=== PATIENT | female | born 1955 | race Caucasian/White ===

== ENCOUNTER 2020-12-30 17:37 | Emergency (ER) | payer OTHER ==
[~2020-12-30] VITALS: Ht 170 cm; Wt 105.0 kg
[2020-12-30] MEDS ORDERED: HYDROcodone/APAP 5 MG/325 MG (LORTAB) TAB PO ONE (18:00)
--- NOTE | 2020-12-30 18:08 | ED Fall/Injury ---
General Chief Complaint: Trauma-Non Activation Stated Complaint: WC FALL; DIZZINESS Nursing Triage Note: PT TRIPPED ANF FELL ONTO CONCRETE AND HIT HER LEFT ELBOW, BOTH KNEES, NOSE, FOREHEAD, AND BROKE HER GLASSES.TOOK TYLENOL AT 1500. Source: patient Exam Limitations: no limitations History of Present Illness Date Seen by Provider: Dec 30, 2020 Time Seen by Provider: 17:55 Initial Comments Here with report of fall today landing on her face and left arm. Complains of pain to her nose, forehead, neck, left elbow and left forearm. Tetanus is up-to-date. She apparently tripped and fell to the ground. She was trying to catch a client who had jumped out of a car. 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 Denies nausea, vomiting or weakness. Does complain of dizziness. Is not sure that she lost consciousness at the fall but was dazed. She did break her glasses. Location Injury Occurred: [employer] Occurred: just prior to arrival (3 to 4 hours ago) Severity: moderate Injuries/Pain Location: head, face, neck, upper extremity Context: tripped Loss of Consciousness: no loss of consciousness Associated Symptoms (Fall): No Abdominal Pain, No Chest Pain, No Confusion; Diz ziness, Headache; No Nausea/Vomiting; Neck Pain; No Shortness of Air, No Trouble Walking, No Vision Changes Allergies and Home Medications Allergies Coded Allergies: morphine (Verified Allergy, Unknown, 12/30/20) Patient Home Medication List Home Medication List Reviewed: Yes Review of Systems Review of Systems Constitutional: No chills, No fever Eyes: Denies Blurred Vision, Denies Pain Ears, Nose, Mouth, Throat: no symptoms reported, nose pain; denies epistaxis Respiratory: no symptoms reported Cardiovascular: no symptoms reported Musculoskeletal: see HPI, joint pain, muscle pain Skin: change in color, lesions (You scattered abrasions to the knees, left upper extremity and face) All Other Systems Reviewed Negative Unless Noted: Yes Past Pyvwvhv-Rvyuyf-Apgolg Hx Patient Social History Tobacco Use?: No Use of E-Cig and/or Vaping dev: No Substance use?: No Alcohol Use?: No Pt feels they are or have been: No Immunizations Up To Date First/Initial COVID19 Vaccinat: JULY 2020 Second COVID19 Vaccination Mynor: AUGUST 2020 COVID19 Vaccine [employer]: DEL Past Medical History Surgeries: Yes Coronary Stent Respiratory: Yes COPD Cardiac: Yes Coronary Artery Disease, Hypertension Neurological: No Family Medical History Reviewed and Corrections made No Pertinent Family Hx Physical Exam Vital Signs Vital Signs - First Documented 12/30/20 17:42 Temp 36.1 Pulse 78 Resp 16 B/P (MAP) 128/64 (85) Pulse Ox 99 O2 Delivery Room Air Capillary Refill : Height, Weight, BMI Height: '" Weight: lbs. oz. kg; BMI Method: General Appearance: WD/WN, no apparent distress HEENT: PERRL/EOMI, pharynx normal Neck: supple, tender lateral; No tender midline Cardiovascular: regular rate, rhythm, no murmur Respiratory: lungs clear, normal breath sounds Back: normal inspection, no CVA tenderness, no vertebral tenderness Extremities: pelvis stable, other (Tender to the left mid forearm and left elbow with full range of motion. Nontender at the left shoulder or wrist.) Neurologic/Psychiatric: alert, oriented x 3 Skin: warm/dry, other (Abrasions to bilateral knees left arm and midline face and bridge of nose.) Progress/Results/Core Measures Results/Orders My Orders Orders - CYNTHIA BOSTON MD Ct Head/Face/Cervical Wo (12/30/20 17:52) Elbow 3 View Left (12/30/20 17:52) Forearm 2 View Left (12/30/20 17:52) Hydrocodone/Apap 5/325 Tablet (Lortab 5 (12/30/20 18:00) Medications Given in ED Current Medications Medications Dose Ordered Sig/Edwin Route Start Time Stop Time Status Last Admin Dose Admin Acetaminophen/ Hydrocodone Bitart 1 ea ONCE ONCE PO 12/30/20 18:00 12/30/20 18:01 DC 12/30/20 18:12 1 EA Vital Signs/I&O 12/30/20 17:42 Temp 36.1 Pulse 78 Resp 16 B/P (MAP) 128/64 (85) Pulse Ox 99 O2 Delivery Room Air Progress Progress Note : Progress Note Seen and evaluated. CT head, face and neck ordered. X-ray left elbow and left forearm. Hydrocodone 5/325 1 tab p.o. Monitor patient. 1904: Fracture noted to the radial neck. We will place sugar tong splint and sling. This was done by nursing. DNV intact afterwards. Discharged home with return precautions. Patient verbalized understanding instructions and agreement with plan. Diagnostic Imaging Diagonstic Imaging: CT Plain Films/CT/US/NM/MRI: facial bones, c-spine, head Comments [facility] [place] [place] NAME: ADRIANNE CALDWELL [facility] REC#: [id number] PT STATUS: REG ER : 1955 PHYSICIAN: CYNTHIA BOSTON MD ADMIT DATE: 12/30/20/ER FS Signed Date of Exam:12/30/20 CT HEAD/FACE/CERVICAL WO PROCEDURE: CT head, face, and cervical spine without contrast. TECHNIQUE: Multiple contiguous axial images were obtained through the head, neck, and facial bones without the use of intravenous contrast. Sagittal and coronal reformations through the cervical spine and facial bones were also performed. Auto Exposure Controls were utilized during the CT exam to meet ALARA standards for radiation dose reduction. INDICATION: Fall with head, neck and face injuries. COMPARISON: No prior studies are available for comparison. CT HEAD: The ventricles and sulci are within normal limits. No sulcal effacement is identified. There is no midline shift. No acute intra-axial or extra-axial hemorrhage is detected. Cisterns are patent. Visualized paranasal sinuses are clear. IMPRESSION: 1. No acute intracranial process is detected. CT CERVICAL SPINE: Alignment of the cervical spine is normal. No fracture or subluxation is identified. Prevertebral tissues are within normal limits. Odontoid is intact. IMPRESSION: 1. No acute bony abnormality is detected. CT FACE: The mandible appears intact. Zygomatic arches are intact. Maxillary sinus garcia, nasal bones and orbital garcia appear to be intact. No fractures are seen. The visualized paranasal sinuses are clear. IMPRESSION: 1. No facial bone fracture is detected. Dictated by: Dictated on workstation # [id number] Dict: 12/30/20 183 Trans: 12/30/201853 [facility] [id number] Interpreted by: MILADY HIGGINS MD Electronically signed by: MILADY HIGGINS MD 12/30/201853 Diagonstic Imaging: Xray Plain Films/CT/US/NM/MRI: forearm Comments [facility] [place] [place] NAME: ADRIANNE CALDWELL [facility] REC#: [id number] PT STATUS: REG ER : 1955 PHYSICIAN: CYNTHIA BOSTON MD ADMIT DATE: 12/30/20/ER FS Signed Date of Exam:12/30/20 FOREARM 2 VIEW LEFT INDICATION: Fall with injury to the left arm. TIME OF EXAM: 06:24 p.m. TECHNIQUE: Two views of the left forearm were obtained. FINDINGS: Alignment at the elbow and wrist appears normal. The radius does show probable fracture of the neck. There is prominent anterior fat pad, consistent with joint effusion. The remainder of the radius and ulna are intact. IMPRESSION: Findings consistent with radius neck fracture. Dictated by: Dictated on workstation # [id number] Dict: 12/30/201834 Trans: 12/30/201853 AS6 [id number] Interpreted by: MILADY HIGGINS MD Electronically signed by: MILADY HIGGINS MD 12/30/201853 Diagonstic Imaging: Xray Comments [facility] [place] [place] NAME: ADRIANNE CALDWELL [facility] REC#: [id number] PT STATUS: REG ER : 1955 PHYSICIAN: CYNTHIA BOSTON MD ADMIT DATE: 12/30/20/ER FS Draft Date of Exam:12/30/20 ELBOW 3 VIEW LEFT INDICATION: Fall with left forearm and elbow pain TECHNIQUE: 3 views of the left elbow CORRELATION STUDY: None FINDINGS: There is normal alignment of the osseous structures of the elbow. No acute fracture. Likely minimal osteophyte formation about the medial epicondyle. No abnormal joint effusion. IMPRESSION: 1. Negative for acute bony abnormality of the elbow. Dictated on workstation # [id number] Dict: 12/30/201831 Trans: 12/30/20 183 BRADEN [id number] Interpreted by: VIDA DING DO Electronically signed by: Departure Impression Primary Impression: Fracture of radial neck, left, closed Qualified Codes: S52.135A - Nondisplaced fracture of neck of left radius, initial encounter for closed fracture Additional Impressions: Head injury Qualified Codes: S09.90XA - Unspecified injury of head, initial encounter Facial contusion Qualified Codes: S00.83XA - Contusion of other part of head, initial encounter Multiple abrasions Disposition: HOME, SELF-CARE Condition: Improved Departure-Patient Inst. Decision time for Depature: 19:09 Referrals: OTTO GAUTHIER MD (PCP/Family) Primary Care Physician Patient Instructions: Minor Head Injury (DC), Skin Abrasions (DC), Radius Fracture (DC), Contusion (DC) Add. Discharge Instructions: All discharge instructions reviewed with patient and/or family. Voiced understanding. You have a nondisplaced fracture of the radius bone near the left elbow. You will need to follow-up with the orthopedist listed or of your choosing. Call his office tomorrow for appointment. Follow-up with your Workmen's Comp. as well. Take medications as directed. You may take Tylenol/acetaminophen 1000 mg every 8 hours as needed for pain if you are not taking the prescribed pain medicine as they both have acetaminophen in them. You may use ice packs to area of concern 20 minutes/h as needed. Use antibiotic ointment and Band-Aid over abrasions changing once or twice daily as needed. Return for worse pain, swelling, weakness, numbness or other concerns as needed. Scripts Hydrocodone Bit/Acetaminophen (HYDROcodone/APAP 5 MG/325 MG TAB) 1 Tab Tab 1 TAB PO Q6H for Pain, #10 TAB 0 Refills Prov: CYNTHIA BOSTON MD 12/30/20 CYNTHIA BOSTON MD Dec 30, 2020 18:08
--- NOTE | 2020-12-30 18:34 | Diagnostic Imaging Report ---
INDICATION: Fall with left forearm and elbow pain TECHNIQUE: 3 views of the left elbow CORRELATION STUDY: None FINDINGS: There is normal alignment of the osseous structures of the elbow. No acute fracture. Likely minimal osteophyte formation about the medial epicondyle. No abnormal joint effusion. IMPRESSION: 1. Negative for acute bony abnormality of the elbow. Dictated by: Dictated on workstation # [id number]
--- NOTE | 2020-12-30 18:38 | Diagnostic Imaging Report ---
PROCEDURE: CT head, face, and cervical spine without contrast. TECHNIQUE: Multiple contiguous axial images were obtained through the head, neck, and facial bones without the use of intravenous contrast. Sagittal and coronal reformations through the cervical spine and facial bones were also performed. Auto Exposure Controls were utilized during the CT exam to meet ALARA standards for radiation dose reduction. INDICATION: Fall with head, neck and face injuries. COMPARISON: No prior studies are available for comparison. CT HEAD: The ventricles and sulci are within normal limits. No sulcal effacement is identified. There is no midline shift. No acute intra-axial or extra-axial hemorrhage is detected. Cisterns are patent. Visualized paranasal sinuses are clear. IMPRESSION: 1. No acute intracranial process is detected. CT CERVICAL SPINE: Alignment of the cervical spine is normal. No fracture or subluxation is identified. Prevertebral tissues are within normal limits. Odontoid is intact. IMPRESSION: 1. No acute bony abnormality is detected. CT FACE: The mandible appears intact. Zygomatic arches are intact. Maxillary sinus garcia, nasal bones and orbital garcia appear to be intact. No fractures are seen. The visualized paranasal sinuses are clear. IMPRESSION: 1. No facial bone fracture is detected. Dictated by: Dictated on workstation # [id number]
--- NOTE | 2020-12-30 18:38 | Diagnostic Imaging Report ---
INDICATION: Fall with injury to the left arm. TIME OF EXAM: 06:24 p.m. TECHNIQUE: Two views of the left forearm were obtained. FINDINGS: Alignment at the elbow and wrist appears normal. The radius does show probable fracture of the neck. There is prominent anterior fat pad, consistent with joint effusion. The remainder of the radius and ulna are intact. IMPRESSION: Findings consistent with radius neck fracture. Dictated by: Dictated on workstation # [id number]
[2020-12-30] MEDS ORDERED: ACHD5005 PO (19:15)
[2020-12-30 19:29] VITALS: BP 128/64
--- OUTSIDE RECORDS SUMMARY | 2021-01-02 18:27 | XMS REPORT | Clinical Summary ---
Author Author [facility] Organization [facility] Address Unknown Phone Unavailable Care Team Providers Care Tunnel Heading Inspector Name Role Phone Henrry See MD PCP Bradley Barraza MD 3 Source Comments Some departments are not documenting in the electronic medical record. If you d o not see the information that you expected, contact Release of Information in [facility] [employer] Information Management department at [phone] for further assistan ce in locating additional records.[facility] Allergies Comments Active Allergy Reactions Severity Noted Date Morphine NAUSEA AND 04/16/2011 VOMITING Medications End Date Status Medication Sig Dispensed Refills Start Date Active clopidogrel (PLAVIX) 75 Take 75 mg by 0 mg mouth daily. Active isosorbide mononitrate SR Take 1 Tab by 90 Tab 3 (IMDUR) 30 mg tablet mouth daily. 1 Active albuterol (VENTOLIN HFA, Inhale 2 0 PROAIR HFA) 90 puffs by mcg/Actuation inhaler mouth into the lungs every 4 hours as needed. 2 puff q4hrs as needed for shortness of breath or cough Active atorvastatin (LIPITOR) 80 Take 80 mg by 0 mg tablet mouth daily. Active DULoxetine DR (CYMBALTA) Take 60 mg by 0 60 mg capsule mouth daily. Active cetirizine (ZYRTEC) 10 mg Take 10 mg by 0 tablet mouth daily. Active cyclobenzaprine Take 10 mg by 0 (FLEXERIL) 10 mg tablet mouth three times daily as needed. Active bumetanide (BUMEX) 2 mg Take 2 mg by 0 tablet mouth twice daily. Active meloxicam (MOBIC) 15 mg Take 15 mg by 0 tablet mouth daily. Active sacubitriL-valsartan Take 1 tablet 0 (ENTRESTO) 24-26 mg by mouth tablet twice daily. Active pantoprazole DR Take 40 mg by 0 (PROTONIX) 40 mg tablet mouth daily. Active semaglutide (OZEMPIC) Inject 0.5 mg 0 0.25 mg or 0.5 mg(2 under the mg/1.5 mL) injection PEN skin every 7 days. Active apixaban (ELIQUIS) 5 mg Take 5 mg by 0 tablet mouth twice daily. Active pregabalin (LYRICA) 150 Take 150 mg 0 mg capsule by mouth three times daily. Active potassium chloride SR Take 20 mEq 0 (K-DUR) 20 mEq tablet by mouth twice daily. Take with a meal and a full glass of water. Active fluticasone/umeclidin/joanna Inhale 1 puff 0 anter (TRELEGY ELLIPTA by mouth into IN) the lungs daily. Active diclofenac sodium Apply 0 (SOLARAZE) 3 % gel topically to affected area twice daily. Active insulin detemir U-100(+) Inject 55 0 (LEVEMIR) 100 unit/mL Units under vial the skin daily. Active nitroglycerin (NITROSTAT) Place 0.4 mg 0 0.4 mg tablet under tongue every 5 minutes as needed for Chest Pain. Max of 3 tablets, call 911. Active rOPINIRole (REQUIP) 1 mg Take 1 mg by 0 tablet mouth three times daily. Active fluticasone propionate Apply 2 0 (FLONASE) 50 sprays to mcg/actuation nasal each nostril spray, suspension as directed twice daily. Shake bottle gently before using. Active sucralfate (CARAFATE) 1 Take 1 g by 0 gram tablet mouth every 6 hours. Take on an empty stomach. Active amiodarone (CORDARONE) Take 200 mg 0 200 mg tablet by mouth daily. Take with food. Active cholecalciferol (VITAMIN Take 1,000 0 D-3) 1,000 units tablet Units by mouth daily. Active MULTIVITAMIN PO Take 1 tablet 0 by mouth daily. Active calcium carb/magnesium Take 2 0 carb (CALCIUM & MAGNESIUM tablets by CARBONATES PO) mouth daily. Active ondansetron (ZOFRAN ODT) Dissolve 4 mg 0 4 mg rapid dissolve by mouth tablet every 8 hours as needed for Nausea or Vomiting. Place on tongue to dissolve. Active fish oil /omega-3 fatty Take 1 0 acids (SEA-OMEGA) capsule by 340/1000 mg capsule mouth twice daily. Active amoxicillin-potassium Take one 2 tablet 0 10/29 clavulanate (AUGMENTIN) tablet by 1 875/125 mg tablet mouth every 12 hours. Start taking 11/22. Take with food. Active doxycycline hyclate Take one 2 tablet 0 (VIBRAMYCIN) 100 mg tablet by 1 tablet mouth every 12 hours. Active vitamins, multi Take 1 tablet 0 w/minerals 9 mg iron-400 by mouth mcg tab daily. Active Problems Problem Noted Date Acute respiratory failure with hypoxia and hypercapni a 11/17/2020 Metabolic acidosis 11/17/2020 A-fib 11/17/2020 Wide-complex tachycardia 05/11/2011 Overview: Formatting of this note might be differ ent from the original. 03/2011- Beat run during hospitaliza tion-EP consulted. Continue BB therapy COPD (chronic obstructive pulmonary disease) 011 HTN (hypertension) 04/17/2011 DM (diabetes mellitus) 04/17/2011 CAD (coronary artery disease) 04/17/2011 Overview: Formatting of this note might be differ ent from the original. 1. 04/19/11-Cath: Mild, nonobstructiv e coronary atherosclerosis with a patent stent in the proximal RCA. 30 percent to 40 percent in-stent reste notic lesion in the proximal aspect of the RCA stent. Normal left ve ntricular systolic function, EF 60% with an EDP o f 12 to 14 mmHg. During engagement of the RCA, notable spasm in the ostium-Imdur initiated. Hx of percutaneous left heart catheterization 2010 HLD (hyperlipidemia) 04/17/2011 CHF (congestive heart failure) 04/17/2011 Depression 04/17/2011 Encounters Care Team Description Date Type Specialty Gayla Chavez APRN-ALYSSA 11/17/2020 Hospital Radiology Encounter Bigg Augustin MD Hall, Chase S, MD Beasley, Jeffrey L, DO Acute respiratory failure with hypoxia a nd hypercapnia (HCC) 11/17/2020 Hospital - Encounter 11/21/2020 11/17/2020 Hospital Radiology Encounter 11/17/2020 Hospital Radiology Encounter 11/17/2020 Hospital Radiology Encounter 11/17/2020 Hospital Radiology Encounter 11/17/2020 Hospital Radiology Encounter 11/17/2020 Travel from Last 3 Months Surgical History Surgery Date Site/Laterality Comments HYSTERECTOMY HX HEART CATHETERIZATION Medical History Medical History Date Comments Myocardial infarction (HCC) Hypertension Gastrointestinal disorder HLD (hyperlipidemia) CHF (congestive heart failure) (HCC) COPD (chronic obstructive pulmonary disease) (HCC) DM (diabetes mellitus) (HCC) Restless legs syndrome (RLS) Family History Medical History Relation Name Comments Heart Attack Father Hypertension Mother Relation Name Status Comments Father Mother Social History Date Tobacco Use Types Packs/Day Years Used Quit: 04/16/2000 Former Smoker Cigarettes 1 30 Smokeless Tobacco: Former Quit: 04/16/1990 User Drinks/Week oz/Week Comments Alcohol Use No Sex Assigned at Date Recorded Not on file Last Filed Vital Signs Reading Time Taken Comments Vital Sign 102/71 11/21/2020 11:23 AM CDT Blood Pressure 86 11/21/2020 11:23 AM CDT Pulse 36.2 C (97.2 F) 11/21/2020 11:23 AM CDT Temperature - - Respiratory Rate 92% 11/21/2020 11:23 AM CDT Oxygen Saturation - - Inhaled Oxygen Concentration 99.6 kg (219 lb 9.3 oz) 11/21/2020 3:32 AM CDT Weight 170.2 cm (5' 7.01") 11/17/2020 3:28 PM CDT Height 34.38 11/17/2020 3:28 PM CDT Body Mass Index Plan of Treatment Health Maintenance Due Date Last Done Comments MEDICARE ANNUAL WELLNESS 1955 VISIT HIV SCREENING 12/06/1971 DILATED EYE EXAM 1974 DTAP/TDAP VACCINES (1 - 1974 Tdap) FOOT EXAM 1974 HEPATITIS C SCREENING 1974 PHYSICAL (COMPREHENSIVE) 1974 EXAM PNEUMONIA VACCINE (DM) 1974 CERVICAL CANCER SCREENING 1977 BREAST CANCER SCREENING 1996 COLORECTAL CANCER 2006 SCREENING SHINGLES RECOMBINANT 01/11/2018 11/16/2017 VACCINE (2 of 2) INFLUENZA VACCINE 02/27/2021 HBA1C 05/19/2021 11/17/2020, 04/18/2011 Goals Goal Patient Associated Recent Progress Patient-Stat Aut hor Goal Type Problems ed? 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 Procedure Name Priority Date/Time Associated Diag nosis POC GLUCOSE 11/21/2020 11:15 AM CDT POC GLUCOSE 11/21/2020 7:34 AM CDT HC PHOSPHOROUS, SERUM Routine 11/21/2020 (PO4CT) 7:27 AM CDT HC MAGNESIUM (MGCT) Routine 11/21/2020 7:27 AM CDT HC COMPREHENSIVE Routine 11/21/2020 METABOLIC PANEL 7:27 AM CDT HC CBC W/ AUTOMATED DIFF Routine 11/21/2020 7:27 AM CDT POC GLUCOSE 11/20/2020 9:25 PM CDT POC GLUCOSE 11/20/2020 4:54 PM CDT POC GLUCOSE 11/20/2020 1:52 PM CDT POC GLUCOSE 11/20/2020 11:47 AM CDT POC GLUCOSE 11/20/2020 8:24 AM CDT POC GLUCOSE 11/20/2020 6:24 AM CDT POC GLUCOSE 11/20/2020 5:26 AM CDT POC GLUCOSE 11/20/2020 4:24 AM CDT POC GLUCOSE 11/20/2020 3:22 AM CDT HC PHOSPHOROUS, SERUM Routine 11/20/2020 (PO4CT) 2:27 AM CDT HC MAGNESIUM (MGCT) Routine 11/20/2020 2:27 AM CDT HC COMPREHENSIVE Routine 11/20/2020 METABOLIC PANEL 2:27 AM CDT HC CBC W/ AUTOMATED DIFF Routine 11/20/2020 2:27 AM CDT POC GLUCOSE 11/20/2020 2:19 AM CDT POC GLUCOSE 11/20/2020 1:04 AM CDT POC GLUCOSE 11/20/2020 12:05 AM CDT POC GLUCOSE 11/19/2020 11:01 PM CDT TROPONIN-I Routine 11/19/2020 11:00 PM CDT POC GLUCOSE 11/19/2020 10:06 PM CDT POC GLUCOSE 11/19/2020 9:12 PM CDT POC GLUCOSE 11/19/2020 8:04 PM CDT POC GLUCOSE 11/19/2020 6:14 PM CDT HC TROPONIN-I Specimen 11/19/2020 in Lab 5:13 PM CDT POC GLUCOSE 11/19/2020 4:22 PM CDT CONSULT IV THERAPY TEAM Routine 11/19/2020 2:13 PM CDT POC GLUCOSE 11/19/2020 1:55 PM CDT POC GLUCOSE 11/19/2020 11:40 AM CDT POC GLUCOSE 11/19/2020 8:50 AM CDT POC GLUCOSE 11/19/2020 6:42 AM CDT POC GLUCOSE 11/19/2020 4:32 AM CDT HC PHOSPHOROUS, SERUM Routine 11/19/2020 (PO4CT) 4:00 AM CDT HC MAGNESIUM (MGCT) Routine 11/19/2020 4:00 AM CDT HC COMPREHENSIVE Routine 11/19/2020 METABOLIC PANEL 4:00 AM CDT HC CBC W/ AUTOMATED DIFF Routine 11/19/2020 4:00 AM CDT POC GLUCOSE 11/19/2020 12:48 AM CDT POC GLUCOSE 11/19/2020 12:06 AM CDT POC GLUCOSE 11/18/2020 10:43 PM CDT POC GLUCOSE 11/18/2020 10:06 PM CDT POC GLUCOSE 11/18/2020 9:10 PM CDT POC GLUCOSE 11/18/2020 7:55 PM CDT POC GLUCOSE 11/18/2020 6:50 PM CDT POC GLUCOSE 11/18/2020 5:35 PM CDT POC GLUCOSE 11/18/2020 5:14 PM CDT POC GLUCOSE 11/18/2020 4:56 PM CDT POC GLUCOSE 11/18/2020 4:07 PM CDT POC GLUCOSE 11/18/2020 2:54 PM CDT POC GLUCOSE 11/18/2020 1:54 PM CDT POC GLUCOSE 11/18/2020 12:43 PM CDT HC MAGNESIUM Routine 11/18/2020 12:15 PM CDT HC BASIC METABOLIC PANEL Routine 11/18/2020 12:15 PM CDT POC GLUCOSE 11/18/2020 11:42 AM CDT POC GLUCOSE 11/18/2020 11:19 AM CDT POC GLUCOSE 11/18/2020 10:52 AM CDT POC GLUCOSE 11/18/2020 9:52 AM CDT POC GLUCOSE 11/18/2020 8:28 AM CDT POC GLUCOSE 11/18/2020 7:44 AM CDT POC GLUCOSE 11/18/2020 6:40 AM CDT POC GLUCOSE 11/18/2020 6:10 AM CDT POC GLUCOSE 11/18/2020 4:59 AM CDT POC GLUCOSE 11/18/2020 4:14 AM CDT HC TROPONIN-I Routine 11/18/2020 2:58 AM CDT HC PHOSPHOROUS, SERUM Routine 11/18/2020 (PO4CT) 2:58 AM CDT HC MAGNESIUM (MGCT) Routine 11/18/2020 2:58 AM CDT HC COMPREHENSIVE Routine 11/18/2020 METABOLIC PANEL 2:58 AM CDT HC CBC W/ AUTOMATED DIFF Routine 11/18/2020 2:58 AM CDT POC GLUCOSE 11/18/2020 2:57 AM CDT POC GLUCOSE 11/18/2020 2:55 AM CDT POC GLUCOSE 11/18/2020 1:43 AM CDT POC GLUCOSE 11/18/2020 12:44 AM CDT POC GLUCOSE 11/17/2020 11:51 PM CDT POC GLUCOSE 11/17/2020 10:40 PM CDT TROPONIN-I 11/17/2020 10:00 PM CDT CBC Routine 11/17/2020 10:00 PM CDT POC GLUCOSE 11/17/2020 9:54 PM CDT POC GLUCOSE 11/17/2020 9:07 PM CDT POC GLUCOSE 11/17/2020 7:54 PM CDT HC TROPONIN-I Routine 11/17/2020 7:53 PM CDT POC GLUCOSE 11/17/2020 7:18 PM CDT POC GLUCOSE 11/17/2020 6:35 PM CDT POC GLUCOSE 11/17/2020 5:22 PM CDT HC NON-SCIENTIFIC GLASS BLOWER/THIN PREP Routine 11/17/2020 3:46 PM CDT HC FUNGITELL (FUNGT) Routine 11/17/2020 3:37 PM CDT HC CBC,AUTOMATED 91 Routine 11/17/2020 3:37 PM CDT TROPONIN-I Routine 11/17/2020 3:37 PM CDT HC RVP PANEL NASAL SINGLE Routine 11/17/2020 RVPN 3:32 PM CDT HC PNEU JIROVECI QT Routine 11/17/2020 PCR(PJPQT) 3:32 PM CDT HC ASPERGILLUS Routine 11/17/2020 GALACTOMANNAN AG 3:32 PM CDT HC CELL COUNT Routine 11/17/2020 W/DIFF-FLUIDS 3:32 PM CDT HC HSV PCR Routine 11/17/2020 3:32 PM CDT HC CMV DNA QN BY PCR Routine 11/17/2020 3:32 PM CDT GRAM STAIN 11/17/2020 3:32 PM CDT CULTURE-FUNGAL,OTHER Routine 11/17/2020 3:32 PM CDT CULTURE-TB (AFB) Routine 11/17/2020 3:32 PM CDT CULTURE-RESP,LOWER Routine 11/17/2020 W/SENSITIVITY 3:32 PM CDT 2D + DOPPLER ECHO W/ ISIDRO 11/17/2020 CONTRAST 3:28 PM CDT POC GLUCOSE 11/17/2020 2:23 PM CDT HC BLOOD Routine 11/17/2020 GASES;(CALCULATED 02) 2:23 PM CDT HC CALCIUM IONIZED 11/17/2020 1:57 PM CDT CULTURE-BLOOD Routine 11/17/2020 W/SENSITIVITY 1:30 PM CDT CONSULT IV THERAPY TEAM Routine 11/17/2020 12:44 PM CDT LEGIONELLA ANTIGEN 11/17/2020 URINE,RAN 12:40 PM CDT HC PHENCYCLIDINES; QUAL Routine 11/17/2020 12:40 PM CDT HC OPIATES; QUAL Routine 11/17/2020 12:40 PM CDT HC COCAINE; QUAL Routine 11/17/2020 12:40 PM CDT HC CANNABINOIDS; QUAL Routine 11/17/2020 12:40 PM CDT HC BENZODIAZEPINES, QUAL Routine 11/17/2020 12:40 PM CDT HC BARBITURATES Routine 11/17/2020 12:40 PM CDT HC AMPHETAMINES QUAL, Routine 11/17/2020 URINE 12:40 PM CDT STREPTOCOCCUS PNEUMO AG, Routine 11/17/2020 URINE 12:40 PM CDT UA REFLEX LABEL Routine 11/17/2020 12:40 PM CDT URINALYSIS MICROSCOPIC Routine 11/17/2020 REFLEX TO CULTURE 12:40 PM CDT HC URINALYSIS UAR Routine 11/17/2020 12:40 PM CDT HC MRSA PNEUMONIA SCREEN Routine 11/17/2020 12:40 PM CDT COVID-19 (SARS-COV-2) PCR Routine 11/17/2020 12:39 PM CDT HC HEMOGLOBIN A1C Add on 11/17/2020 11:59 AM CDT HC AMMONIA Routine 11/17/2020 11:59 AM CDT HC PROLCALCITONIN (PROCA) STAT 11/17/2020 11:59 AM CDT HC TSH SCREEN Routine 11/17/2020 11:59 AM CDT HC TROPONIN-I STAT 11/17/2020 11:59 AM CDT HC B-TYPE NATRIURETIC Routine 11/17/2020 PEPTIDE 11:59 AM CDT HC PHOSPHOROUS, SERUM Routine 11/17/2020 11:59 AM CDT HC MAGNESIUM Routine 11/17/2020 11:59 AM CDT HC CALCIUM IONIZED Routine 11/17/2020 11:59 AM CDT HC LACTIC ACID - BG Routine 11/17/2020 SYRINGE 11:59 AM CDT HC BLOOD STAT 11/17/2020 GASES;(CALCULATED 02) 11:59 AM CDT HC COMPREHENSIVE Routine 11/17/2020 METABOLIC PANEL 11:59 AM CDT HC PT(INR) Routine 11/17/2020 11:59 AM CDT HC CBC W/ AUTOMATED DIFF Routine 11/17/2020 11:59 AM CDT CULTURE-BLOOD Routine 11/17/2020 W/SENSITIVITY 11:59 AM CDT POC GLUCOSE 11/17/2020 11:56 AM CDT CHEST SINGLE VIEW STAT 11/17/2020 11:50 AM CDT ECG 12-LEAD STAT 11/17/2020 11:30 AM CDT GENERAL RAD CHEST Routine 11/17/2020 EXTERNAL IMAGING 12:[address] HEAD EXTERNAL IMAGING Routine 11/17/2020 12:[address] C-SPINE EXTERNAL Routine 11/17/2020 IMAGING 12:10 AM CDT GENERAL RAD CHEST Routine 11/17/2020 EXTERNAL IMAGING 12:05 AM CDT GENERAL RAD CHEST Routine 11/17/2020 EXTERNAL IMAGING 12:00 AM CDT ECG-SCAN 11/17/2020 12:00 AM CDT ECG-SCAN 11/17/2020 12:00 AM CDT TELEMETRY STRIPS-SCAN 11/17/2020 12:00 AM CDT TELEMETRY STRIPS-SCAN 11/17/2020 12:00 AM CDT TELEMETRY STRIPS-SCAN 11/17/2020 12:00 AM CDT from Last 3 Months Results * POC GLUCOSE (11/21/2020 11:15 AM CDT) Only the most recent of 63 results within the time period is included. Glucose, POC 186 (H) 70 - 100 MG/DL [facility] Specimen Performing Organization Address City/State/ZIP Code P morris Number [facility] [address] [id number] * PHOSPHORUS CELLULAR THERAPEUTICS (11/21/2020 7:27 AM CDT) Only the most recent of 4 results within the time period is included. Phosphorus 3.5 2.0 - 4.5 MG/DL [facility] Specimen Blood Performing Organization Address City/[facility]/ZIP [facility] P morris Number [facility] [address] [place] [address] * MAGNESIUM CELLULAR THERAPEUTICS (11/21/2020 7:27 AM CDT) Only the most recent of 4 results within the time period is included. Magnesium 1.5 (L) 1.6 - 2.6 mg/dL [facility] Specimen Blood Performing Organization Address City/[facility] Code P morris Number [facility] [address] [place] [address] * CBC AND DIFF (11/21/2020 7:27 AM CDT) Only the most recent of 5 results within the time period is included. White Blood 8.5 4.5 - 11.0 K/UL [facility] Cells RBC 4.26 4.0 - 5.0 M/UL [facility] Hemoglobin 12.1 12.0 - 15.0 GM/DL [facility] Hematocrit 36.3 36 - 45 % [facility] MCV 85.0 80 - 100 FL [facility] MCH 28.4 26 - 34 PG [facility] MCHC 33.4 32.0 - 36.0 G/DL [facility] RDW 15.0 11 - 15 % [facility] Platelet Count 282 150 - 400 K/UL [facility] MPV 10.2 7 - 11 FL [facility] Neutrophils 66 41 - 77 % [facility] Lymphocytes 20 (L) 24 - 44 % [facility] Monocytes 11 4 - 12 % [facility] Eosinophils 2 0 - 5 % [facility] Basophils 1 0 - 2 % [facility] Absolute 5.70 1.8 - 7.0 K/UL [facility] Neutrophil Count Absolute Lymph 1.65 1.0 - 4.8 K/UL [facility] Count Absolute 0.89 (H) 0 - 0.80 K/UL [facility] Monocyte Count Absolute 0.19 0 - 0.45 K/UL [facility] Eosinophil Count Absolute 0.06 0 - 0.20 K/UL [facility] Basophil Count Specimen Blood Performing Organization Address City/State/ZIP Code P morris Number [facility] [address] [place] [address] * COMPREHENSIVE METABOLIC PANEL (11/21/2020 7:27 AM CDT) Only the most recent of 5 results within the time period is included. Sodium 136 (L) 137 - 147 MMOL/L [facility] Potassium 3.4 (L) 3.5 - 5.1 MMOL/L [facility] Chloride 96 (L) 98 - 110 MMOL/L [facility] Glucose 190 (H) 70 - 100 MG/DL [facility] Blood Urea 17 7 - 25 MG/DL [facility] Nitrogen Creatinine 0.72 0.4 - 1.00 MG/DL [facility] Calcium 8.8 8.5 - 10.6 MG/DL [facility] Total Protein 7.0 6.0 - 8.0 G/DL [facility] Total Bilirubin 0.4 0.3 - 1.2 MG/DL [facility] Albumin 3.8 3.5 - 5.0 G/DL [facility] Alk Phosphatase 101 25 - 110 U/L [facility] AST (SGOT) 53 (H) 7 - 40 U/L [facility] CO2 28 21 - 30 MMOL/L [facility] ALT (SGPT) 48 7 - 56 U/L [facility] Anion Gap 12 3 - 12 [facility] eGFR Non >60 >60 mL/min [facility] Comment: [facility] The eGFR is not validated f or use in drug dosing adjustments. Continue to use estimated creatinine clearance per dosing reference text. Please contact the Clinical Pharmacist for questions. eGFR >60 >60 mL/min [facility] Comment: The eGFR is not validated for use in drug dosing adjustments. Continue to use estimated creatinine clearance per dosing reference text. Please contact the Clinical Pharmacist for questions. Specimen Blood Performing Organization Address City/[facility]/ZIP Code P morris Number [facility] [address] [id number] * TROPONIN-I (11/19/2020 11:00 PM CDT) Only the most recent of 7 results within the time period is included. Troponin-I 0.10 (H) 0.0 - 0.05 NG/ML [facility] Specimen Blood Performing Organization Address City/[facility]/ZIP Code P morris Number [facility] [address] [place] [address] * MAGNESIUM (11/18/2020 12:15 PM CDT) Only the most recent of 2 results within the time period is included. Magnesium 2.0 1.6 - 2.6 mg/dL [facility] Specimen Blood Performing Organization Address City/[facility] Code P morris Number [facility] [address] [place] [address] * BASIC METABOLIC PANEL (11/18/2020 12:15 PM CDT) Sodium 147 137 - 147 MMOL/L [facility] Potassium 3.6 3.5 - 5.1 MMOL/L [facility] Chloride 108 98 - 110 MMOL/L [facility] CO2 28 21 - 30 MMOL/L [facility] Anion Gap 11 3 - 12 [facility] Glucose 137 (H) 70 - 100 MG/DL [facility] Blood Urea 30 (H) 7 - 25 MG/DL [facility] Nitrogen Creatinine 0.77 0.4 - 1.00 MG/DL [facility] Calcium 8.4 (L) 8.5 - 10.6 MG/DL [facility] eGFR Non >60 >60 mL/min [facility] Comment: [facility] The eGFR is not validated f or use in drug dosing adjustments. Continue to use estimated creatinine clearance per dosing reference text. Please contact the Clinical Pharmacist for questions. eGFR >60 >60 mL/min [facility] Comment: The eGFR is not validated for use in drug dosing adjustments. Continue to use estimated creatinine clearance per dosing reference text. Please contact the Clinical Pharmacist for questions. Specimen Blood Performing Organization Address [facility]/ZIP Code P morris Number [facility] [address] [place] [address] * CBC (11/17/2020 10:00 PM CDT) Only the most recent of 2 results within the time period is included. White Blood 20.6 (H) 4.5 - 11.0 K/UL [facility] Cells RBC 4.30 4.0 - 5.0 M/UL [facility] Hemoglobin 12.2 12.0 - 15.0 GM/DL [facility] Hematocrit 35.9 (L) 36 - 45 % [facility] MCV 83.5 80 - 100 FL [facility] MCH 28.4 26 - 34 PG [facility] MCHC 34.0 32.0 - 36.0 G/DL [facility] RDW 15.3 (H) 11 - 15 % [facility] Platelet Count 356 150 - 400 K/UL [facility] MPV 9.9 7 - 11 FL [facility] Specimen Blood Performing Organization Address City/State/ZIP Code P morris Number [facility] [address] [place] [address] * CYTOLOGY BRONCH [place]AV[place] (11/17/2020 3:46 PM CDT) Cytology [facility] [email or web address] Department of Pathology and Laboratory Medicine [address] [place] [address] Surgical Pathology Office: [phone] CYTOLOGY REPORT NAME: CAMILA CALDWELL CYTOLOGY #: [id number] MR #: [id number] ALT ID #: BILLING #: [id number] LOCATION: [facility] DATE OF PROCEDURE: 11/17/2020 AGE: 64 SEX: F DATE RECEIVED: 11/18/2020 : 1955 TIME RECEIVED: 09:54 PHYSICIAN: JOY BROWNE MD DATE OF REPORT: 11/19/2020 COPY TO: DATE OF PRINTIN11/19/2020 Material Received: A: Bronchial Alveolar Lavage-TANYA History: 64 year old female with a history of COPD and acute respiratory failure. Gross Description: (1 ThinPrep) 10mLs of cloudy pale red fluid. ############################## ############################## ############ Final Diagnosis: A. Bronchial Alveolar Lavage-TANYA: Negative for malignant cells. Attestation: By this signature, I attest that I have personally formulated the final interpretation expressed in this report and that the above diagnosis is based upon my examination of the slides and/or other material indicated in this report. +++Electronically Signed Out By+++ nicolasa/11/19/2020 Interpreted by: MD Gerry Joy MD, Fellow Specimen Bronchial Alveolar Lavage,TANYA Performing Organization Address City/State/ZIP Code P morris Number [facility] [address] [place] [address] * FUNGITELL (11/17/2020 3:37 PM CDT) [facility] Olive See Comment REFERENCE LAB Reference range: <80 Unit: pg/mL . RESULTS OF FUNGITELL INCONCLUSIVE DUE TO THE PRESENCE OF HEMOLYSIS. PLEASE SUBMIT ANOTHER SPECIMEN FOR TESTING. PLEASE CONTACT [employer] WITH QUESTIONS. . Interpretation: The Fungitell assay does not detect certain fungal species such as the genus Cryptococcus (Jeff et al. 1991) which produces very low levels of (1-3)-Cwju-Q-Jkxpyb. The assay also does not detect the Zygomycetes such as Absidia, Mucor and Rhizopus (Edd et al. 1994) which are not known to produce (1-3)-Cupm-Z-Vdorur. In addition, the yeast phase of Blastomyces dermatitidis produces little (1-3)-Hmux-N-Eumzkj and may not be detected by the assay (Lula et al. 2007). . Reference Range: Less than 60 pg/mL. Glucan values of less than 60 pg/mL are interpreted as negative. Glucan values of 60 to 79 pg/mL are interpreted as indeterminate, and suggest a possible fungal infection. Additional sampling and testing of sera is required to interpret the results. . Glucan values of greater than or equal to 80 pg/mL are interpreted as positive. Due to the potential for environmental contamination when transferred to pour-off tubes, which can lead to false positive results, interpret positive results from samples provided in pour-off tubes with caution. Results should be used in conjunction with clinical findings, and should not form the sole basis for a diagnosis or treatment decision. The Fungitell test is approved or cleared for in vitro diagnostic use by the [place] Food and Drug Administration. Modifications to the approved package insert have been made and the performance characteristics for these modifications were determined by [facility]. . If sample result is greater than 500 pg/mL, physician may order a titer of the sample. Please contact [employer] if you would like to order a retest of this sample to obtain an actual value. Samples are held for 1 week after initial testing date. Testing Performed At: [facility] [address] [place] [address] Digital Product Specialist: Binh Schwartz Ph.D., KAREN (ABB) CLIA#: [id number] Phone: Specimen Blood Performing Organization Address City/State/ZIP Code P morris Number REFERENCE LAB RE[facility]ENCE LAB See results for address. * ASPERGILLUS GALACTOMANN (11/17/2020 3:32 PM CDT) [facility] Aspergillus 0.089 REFERENCE LAB Galactomann BAL Comment: Reference range: <0.500 . Interpretation: Patients with an index value of greater than or equal to 0.5 are considered to be positive for galactomannan antigen. The Platelia(TM) Aspergillus EIA package insert also recommends a new sample be collected from the patient for follow-up testing. Patients with an index value of less than 0.5 are considered to be negative for galactomannan antigen. A negative result may indicate that the patient's result is below the detectable level of the assay. . Negative results do not rule out the diagnosis of Invasive Aspergillosis. Pursuant to the package insert, repeat testing is recommended if the result is negative, but the disease is suspected. Due to the potential for environmental contamination when transferred to pour-off tubes, which can lead to false positive results, interpret positive results from samples provided in pour-off tubes with caution. Results should be used in conjunction with clinical findings, and should not form the sole basis for a diagnosis or treatment decision. . The Platelia Aspergillus Galactomannan EIA is a product of [employer] and is FDA approved for in vitro diagnostic use. Testing Performed At: [facility] [place] [address] Digital Product Specialist: Binh Schwartz Ph.D., KAREN (ABB) CLIA#: [id number] Phone: Specimen Bronchial Washing TANYA Performing Organization Address City/State/ZIP Code P morris Number REFERENCE LAB REFERENCE LAB See results for address. * PJP JIROVECI QUANT PCR (11/17/2020 3:32 PM CDT) PJP Jiroveci NOT DETECTED REFERENCE LAB BAL PCR Quant Reference range: NOT DETECT ED Unit: copies/mL . Assay Range: 84 copies/mL to 1.00E+08 copies/mL . The limit of quantitation (LOQ) is 84 copies/mL. Pneumocystis jiroveci DNA detected below the LOQ will be reported as Detected:<84 copies/mL. . This test was developed and its performance characteristics determined by [employer]. It has not been cleared or approved by the U.S. Food and Drug Administration. Results should be used in conjunction with clinical findings, and should not form the sole basis for a diagnosis or treatment decision. Testing Performed At: [facility] [address] [place] [address] Digital Product Specialist: Binh Schwartz Ph.D., KAREN (ABB) CLIA#: [id number] Phone: Specimen Bronchial Washing TANYA Performing Organization Address City/State/ZIP Code P morris Number REFERENCE LAB REFERENCE LAB See results for address. * RVP VIRAL PANEL PCR (11/17/2020 3:32 PM CDT) Specimen Source NASOPHARYNGEAL [facility] MAIN [facility] This panel does not detect SARS-CoV-2, the etiologic agent of COVID-19. Contact Infection Control for testing of patients with suspected SARS-CoV-2 infection. This assay uses analyte specific reagents and has not been cleared by the US Food and Drug Administration. The performance characterics were determined by the [facility]. Adenovirus NOT DETECTED DN-NOT DETECTED [facility] MAIN LAB Coronavirus NOT DETECTED DN-NOT DETECTED MAIN LAB 229E Coronavirus NOT DETECTED DN-NOT DETECTED MAIN LAB HKU1 Coronavirus NOT DETECTED DN-NOT DETECTED MAIN LAB NL63 Coronavirus NOT DETECTED DN-NOT DETECTED MAIN LAB OC43 Human NOT DETECTED DN-NOT DETECTED K[facility] MAIN LAB Metapneumovirus Human NOT DETECTED DN-NOT DETECTED K[facility] MAIN LAB Rhinovirus/ENTE ROVIRUS Influenza A NOT DETECTED DN-NOT DETECTED K[facility] MAIN LAB H1N1 2009 Influenza A H1 NOT DETECTED DN-NOT DETECTED K[facility] MAIN LAB Influenza A H3 NOT DETECTED DN-NOT DETECTED [facility] MAIN LAB Influenza B NOT DETECTED DN-NOT DETECTED KU MAIN LAB Parainfluenza 1 NOT DETECTED DN-NOT DETECTED [facility] MAIN LAB Parainfluenza 2 NOT DETECTED DN-NOT DETECTED MAIN LAB Parainfluenza 3 NOT DETECTED DN-NOT DETECTED MAIN LAB Parainfluenza 4 NOT DETECTED DN-NOT DETECTED MAIN LAB RSV NOT DETECTED DN-NOT DETECTED MAIN LAB Bordetella NOT DETECTED DN-NOT DETECTED MAIN LAB Pertussis Chlamydophila NOT DETECTED DN-NOT DETECTED [facility] MAIN LAB Pneumoniae Mycoplasma NOT DETECTED DN-NOT DETECTED MAIN LAB Pneumoniae Specimen Bronchial Alveolar Lavage Performing Organization Address City/State/ZIP Code P morris Number [facility] MAIN [facility] [address] [place] [address] * HERPES SIMPLEX PCR - NON-BLOOD (11/17/2020 3:32 PM CDT) Specimen, BRONCHIAL ALVEOLAR LAVAGE [facility] MAIN [facility] Herpes Herpes Simplex INDETERMINATE, POSSIBLE HSVND-HSV 1 and 2 [facility] MAIN [facility] PCR INTERFERING SUBSTANCE (A) NOT DETECTED Comment: [employer] HSV 1&2 Assay is a qualitative real-time PCR test for the direct detection and differentiation of HSV 1 and 2 DNA. This assay is FDA approved for testing cutaneous or mucocutaneous lesions from symptomatic patients. Performance on modifications of this test as well as other specimen types has been validated by the Department of Pathology and Laboratory Medicine at the [facility]. Specimen Bronchial Alveolar Lavage Performing Organization Address City/State/ZIP Code P morris Number [facility] [address] [place] [address] * CULTURE-FUNGAL,OTHER (11/17/2020 3:32 PM CDT) Battery Name FUNGUS CULTURE [facility]IN [facility] Report Status FINAL 12/22/2020 [facility] Specimen BRONCHIAL ALVEOLAR LAVAGE LUNG YAMEL LARKINI N LAB Description TANYA Special NONE [facility] MAIN LAB Requests Culture NO GROWTH OF FUNGUS AT 4 WEEKS [facility]OMI N LAB Specimen Bronchial Alveolar Lavage - Lung TANYA Performing Organization Address [facility]/ZIP Code P morris Number [facility] [address] [place] [address] * GRAM STAIN (11/17/2020 3:32 PM CDT) Battery Name GRAM STAIN [facility] Report Status FINAL 11/18/2020 [facility] Specimen BRONCHIAL ALVEOLAR LAVAGE LUNG YAMEL LARKINI N LAB Description TANYA Special NONE [facility] MAIN LAB Requests Gram Stain 10-25/LPF [facility] MAIN LAB NEUTROPHILS Gram Stain MANY MAIN LAB RBC'S Gram Stain RARE MAIN LAB GRAM POSITIVE COCCI RESEMBLING STAPHYLOCOCCI Specimen Bronchial Alveolar Lavage - Lung TANYA Performing Organization Address City/[facility] P morris Number [facility] MAIN [facility] [address] [place] [address] * CULTURE-RESP,LOWER W/SENSITIVITY (11/17/2020 3:32 PM CDT) Battery Name LOWER RESP CULTURE [facility] MA[facility] Report Status FINAL 11/19/2020 [facility] MAIN [facility] Specimen BRONCHIAL ALVEOLAR LAVAGE LUNG YAMEL COMER N LAB Description TANYA Special NONE [facility] MAIN LAB Requests Direct Gram 10-25/LPF [facility] MAIN LAB Stain NEUTROPHILS Direct Gram MANY [facility] MAIN LAB Stain RBC'S Direct Gram RARE [facility] MAIN LAB Stain GRAM POSITIVE COCCI RESEMBL ING STAPHYLOCOCCI Culture Light growth [facility] MAIN LAB STAPHYLOCOCCUS AUREUS (A) Culture Negative for PBP2A, indicating YAMEL LARKINI N LAB that isolate is MSSA (A) Specimen Bronchial Alveolar Lavage - Lung TANYA Antibiotic Method Susceptibility Organism Clindamycin SURAJ (MCG/ML), INTERPRETATION, PHX <=0.5: Resistant Staphylococcus aureus Erythromycin SURAJ (MCG/ML), INTERPRETATION, PHX >4: Resistant Staphylococcus aureus Oxacillin SURAJ (MCG/ML), INTERPRETATION, PHX 0.5: Susceptible Staphylococcus aureus Vancomycin SURAJ (MCG/ML), INTERPRETATION, PHX 1: Susceptible Staphylococcus aureus Tetracycline SURAJ (MCG/ML), INTERPRETATION, PHX <=0.5: Susceptible Staphylococcus aureus Trimethsulfa SURAJ (MCG/ML), INTERPRETATION, PHX <=/19: Susceptible Staphylococcus aureus Performing Organization Address [facility] P morris Number [facility] [address] [place] [address] * CMV QUANT PCR-FLUID (11/17/2020 3:32 PM CDT) Pathologist [facility] Specimen, CMV FLUID [facility] BRONCHIAL ALVEOLAR LAVAGE CMV by CMV DNA NOT DETECTED [facility] PCR-fluid CMV This assay is an off label use [facility] Comment-Fluid of the [employer] Real[employer] y for detection of CMV in fluids and has not been approved by the US Food and Drug Administration. The performance characteristics were determined by the [facility]. The lower limit of detection is 50IU/mL. Specimen Fluid - Fluid Performing Organization Address [facility] P morris Number [facility] [address] [place] [address] * CELL COUNT W/DIFF-FLUIDS (11/17/2020 3:32 PM CDT) Pathologist [facility] Segmented 79 % [facility] Neutrophils, Fluid Lymphocytes,Flu 2 % [facility] id Monocyte/Histo, 19 % [facility] Fluid Fluid Source FLUID [facility] BRONCHIAL ALVEOLAR LAVAGE Pathology NEGATIVE FOR MALIGNANT CELLS [facility] Interpretation, PLEASE ALSO SEE CONCURRENT Fluid CYTOPATHOLOGY REPORT Pathologist INTERPRETED BY PEGGY BURCH [facility] Signature M.Maryjo. By the PATH SIGNATURE ABOVE, I attest that I have personally formulated the final interpretation expressed in this report and that the above diagnosis is based upon my examination of the slides and/or other material indicated in this report. Specimen Fluid - Bronchial Alveolar Lavage Performing Organization Address [facility] P morris Number [facility] [address] [place] [address] * 2D + DOPPLER ECHO (11/17/2020 3:28 PM CDT) LVOT diameter 1.79 cm OTHER OUTSIDE LAB IVS 1.09 0.6 - 0.9 cm OTHER OUTSIDE LAB LVIDD 5.10 3.8 - 5.2 cm OTHER OUTSIDE LAB LVIDS 3.57 2.2 - 3.5 cm OTHER OUTSIDE LAB PW 1.10 0.6 - 0.9 cm OTHER OUTSIDE LAB Left Ventricle 159.00 46 - 106 mL OTHER OUTSIDE Diastolic LAB Volume Left Ventricle 73 29 - 61 mL OTHER OUTSIDE Diastolic LAB Volume Index Left Ventricle 57.00 14 - 42 mL OTHER OUTSIDE Systolic Volume LAB Left Ventricle 26 8 - 24 mL OTHER OUTSIDE Systolic Volume LAB Index LVOT peak errol 1.19 m/s OTHER OUTSIDE LAB LVOT peak VTI 25.05 cm OTHER OUTSIDE LAB TDI lateral e' 0.09 m/s OTHER OUTSIDE LAB Right 3.30 1.9 - 3.5 cm OTHER OUTSIDE Ventricular Mid LAB Diameter LA size 3.72 2.7 - 3.8 cm OTHER OUTSIDE LAB LA volume 64.20 22 - 52 mL OTHER OUTSIDE LAB Right Atrial 14.26 <18 cm2 OTHER OUTSIDE Area LAB Right Atrial 4.72 2.2 - 2.8 cm OTHER OUTSIDE Major Dimension LAB , with a mean 16.05 mmHg OTHER OUTSIDE gradient of LAB AV peak 2.69 m/s OTHER OUTSIDE velocity LAB Ao VTI 52.95 cm OTHER OUTSIDE LAB MV Peak A Errol 0.84 m/s OTHER OUTSIDE LAB MV Peak E Errol 0.95 m/s OTHER OUTSIDE PW LAB Right 4.11 2.5 - 4.1 cm OTHER OUTSIDE Ventricular LAB Basal Diameter Right Heart 0.11 m/s OTHER OUTSIDE Systolic TDI S' LAB Right Heart 1.93 >1.7 cm OTHER OUTSIDE Systolic Mmode LAB TAPSE Sinus 2.44 2.4 - 3.6 cm OTHER OUTSIDE LAB Ascending aorta 2.54 cm OTHER OUTSIDE LAB BSA 2.17 m2 OTHER OUTSIDE LAB Referring Mamie Her OTHER OUTSIDE Provider LAB CV ECHO PV Marlena Ramirez, ACS OTHER OUTSIDE EARLY [employer] 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 LAB FS 30.00 28 - 44 % OTHER OUTSIDE LAB EF 51.00 % OTHER OUTSIDE LAB LV mass 213 67 - 162 g OTHER OUTSIDE LAB RWT 0.43 <=0.42 OTHER OUTSIDE LAB Aortic valve 1.19 cm2 OTHER OUTSIDE area = LAB AV index 0.44 OTHER OUTSIDE ([place]) LAB E/A ratio 1.13 OTHER OUTSIDE LAB LVOT area 2.52 cm2 OTHER OUTSIDE LAB LVOT stroke 63.04 cm3 OTHER OUTSIDE volume LAB and a peak 29 mmHg OTHER OUTSIDE gradient of LAB Lateral E/E' 10.56 OTHER OUTSIDE ratio LAB Left Atrium 29.59 16 - 34 OTHER OUTSIDE Index LAB Cardiology Siemens [id number] OTHER OUTSIDE Ultrasound LAB Machine Left Ventricle 98 43 - 95 g/m2 OTHER OUTSIDE Mass Index LAB TDI Medial e' 0.070 m/s OTHER OUTSIDE LAB Medial E/E' 13.57 OTHER OUTSIDE ratio LAB TR PEAK 2.9 m/s OTHER OUTSIDE VELOCITY LAB RV SYSTOLIC 34 OTHER OUTSIDE PRESSURE LAB ECHO EF 50 % OTHER OUTSIDE LAB Specimen Narrative Performed At OTHER OUTSIDE LAB Mildly depressed left ventricular systo lic function with mild left ventricular dilation. LVEF 50% Mild diastolic dysfunction. Aortic valve sclerosis with mild stenos is. Peak velocity is 2.7 m/s. No regurgitation. No pericardial effusion. Performing Organization Address City/[facility]/ZIP Code P morris Number OTHER OUTSIDE LAB * BLOOD GASES, ARTERIAL (11/17/2020 2:23 PM CDT) Only the most recent of 2 results within the time period is included. pH-Arterial 7.33 (L) 7.35 - 7.45 [facility] MAIN LAB pCO2-Arterial 55 (H) 35 - 45 MMHG [facility] MAIN [facility] pO2-Arterial 101 (H) 80 - 100 MMHG [facility] MAIN [facility] Base 1.4 MMOL/L [facility] MAIN [facility] Excess-Arterial O2 Sat-Arterial 95.6 95 - 99 % [facility] MAIN LAB Bicarbonate-ART 25.6 21 - 28 MMOL/L MAIN LAB -Adolfo Specimen Blood, arterial - Blood Performing Organization Address [facility] P morris Number MAIN LAB [address] [place] [id number] * IONIZED CALCIUM (11/17/2020 1:57 PM CDT) Only the most recent of 2 results within the time period is included. Ionized Calcium 1.13 1.0 - 1.3 MMOL/L [facility] MAIN [facility] Specimen Performing Organization Address [facility] P morris Number MAIN LAB [address] [place] [address] * CULTURE-BLOOD W/SENSITIVITY (11/17/2020 1:30 PM CDT) Only the most recent of 2 results within the time period is included. Battery Name BLOOD CULTURE [facility] MA[facility] Report Status FINAL 11/23/2020 MAIN LAB Specimen BLOOD ARM, RIGHT ANTECUBITAL MAIN LAB Description Special NONE [facility] MAIN LAB Requests Culture NO GROWTH 5 DAYS MAIN LAB Specimen Blood - Arm, Right Performing Organization Address [facility] P morris Number MAIN LAB [address] [place] [address] * MRSA PNEUMONIA SCREEN (11/17/2020 12:40 PM CDT) MRSA Pneumonia NOT DETECTED [facility] PCR The negative predictive robert ue of this assay for MRSA pneumonia is high. Discontinuation of anti-MRSA pneumonia therapy is recommended in patients without additional clinical features that warrant MRSA therapy. Contact infectious Diseases or Antimicrobial Stewardship with questions. Specimen Flocked Swab - Nasal Swab Performing Organization Address [facility] P morris Number [facility] [address] [place] [address] * UA REFLEX LABEL (11/17/2020 12:40 PM CDT) UA Reflex Criteria for reflex to culture [facility] NA[facility]OMI N LAB Culture are WBC>10, Positive Nitrit e, and/or >=+1 leukocytes. If quantity is not sufficient, an addendum will follow. Specimen Urine Performing Organization Address [facility] P morris Number [facility] [address] [place] [address] * URINALYSIS MICROSCOPIC REFLEX TO CULTURE (11/17/2020 12:40 PM CDT) WBCs,UA 0-2 0 - 2 /HPF [facility] RBCs,UA 0-2 0 - 3 /HPF [facility] Comment,UA Criteria for reflex to culture [facility] NA[facility]OMI N LAB are WBC>10, Positive Nitrite, and/or >=+1 leukocytes. If quantity is not sufficient, an addendum will follow. Specimen Urine Performing Organization Address [facility] P morris Number [facility] [address] [place] [address] * URINALYSIS DIPSTICK REFLEX TO CULTURE (11/17/2020 12:40 PM CDT) Color,UA STRAW [facility] MAIN [facility] Turbidity,UA CLEAR CLEAR-CLEAR [facility] Specific 1.023 1.003 - 1.035 [facility]IN LAB [place]-Urine pH,UA 6.0 5.0 - 8.0 [facility] MAIN [facility] Protein,UA NEG NEG-NEG [facility]IN [facility] Glucose,UA 3+ (A) NEG-NEG [facility] MAIN [facility] Ketones,UA TRACE (A) NEG-NEG [facility] MAIN [facility] Bilirubin,UA NEG NEG-NEG [facility] MAIN [facility] Blood,UA NEG NEG-NEG [facility] MAIN [facility] Urobilinogen,UA NORMAL NORM-NORMAL [facility] MAIN [facility] Nitrite,UA NEG NEG-NEG [facility] MAIN LAB Leukocytes,UA NEG NEG-NEG MAIN LAB Urine Ascorbic NEG NEG-NEG MAIN LAB Acid, UA Specimen Urine Performing Organization Address City/[facility] Code P morris Number MAIN LAB [address] [place] [address] * STREPTOCOCCUS PNEUMO AG, URINE (11/17/2020 12:40 PM CDT) Battery Name STREP PNEUMO AG, UR MAIN LAB Report Status FINAL 11/17/2020 [facility] MAIN [facility] Specimen URINE MAIN LAB Description Special NONE MAIN LAB Requests Antigen NEGATIVE MAIN LAB Specimen Urine - Urine Performing Organization Address [facility] P morris Number MAIN LAB [address] [place] [address] * PHENCYCLIDINES-URINE RANDOM (11/17/2020 12:40 PM CDT) Phencyclidine NEG NEG-NEG MAIN LAB (PCP) Comment: RESULTS WERE OBTAINED BY IMMUNOASSAY AND ARE PRESUMPTIVE ONLY. POSITIVE INDICATES THE PRESENCE OF SUBSTANCE WITH CHARACTERISTICS SIMILAR TO DRUG-DRUG CLASS OR METABOLITE IN CONC. EQUAL TO OR EXCEEDING VALUES LISTED. PHENCYCLIDINE (PCP) 25 NG/ML Specimen Urine - Urine Performing Organization Address [facility] P morris Number MAIN LAB [address] [place] [address] * OPIATES-URINE RANDOM (11/17/2020 12:40 PM CDT) Opiates-Urine NEG NEG-NEG MAIN LAB Comment: RESULTS WERE OBTAINED BY IMMUNOASSAY AND ARE PRESUMPTIVE ONLY. POSITIVE INDICATES THE PRESENCE OF SUBSTANCE WITH CHARACTERISTICS SIMILAR TO DRUG-DRUG CLASS OR METABOLITE IN CONC. EQUAL TO OR EXCEEDING VALUES LISTED. OPIATES 2000 NG/ML Specimen Urine - Urine Performing Organization Address [facility] P morris Number MAIN LAB [address] [place] [address] * LEGIONELLA ANTIGEN URINE,RAN (11/17/2020 12:40 PM CDT) Battery Name LEGIONELLA URINE ANTIGEN MAIN LAB Report Status FINAL 11/17/2020 [facility] MAIN LAB Specimen URINE [facility] MAIN LAB Description Special NONE [facility]U MAIN LAB Requests Antigen NEGATIVE [facility] MAIN [facility] Specimen Urine Performing Organization Address City/[facility]/ZIP Code P morris Number MAIN LAB [address] [place] [address] * COCAINE-URINE RANDOM (11/17/2020 12:40 PM CDT) Cocaine-Urine NEG NEG-NEG MAIN LAB Comment: RESULTS WERE OBTAINED BY IMMUNOASSAY AND ARE PRESUMPTIVE ONLY. POSITIVE INDICATES THE PRESENCE OF SUBSTANCE WITH CHARACTERISTICS SIMILAR TO DRUG-DRUG CLASS OR METABOLITE IN CONC. EQUAL TO OR EXCEEDING VALUES LISTED. COCAINE 300 NG/ML Specimen Urine - Urine Performing Organization Address [facility] P morris Number MAIN LAB [address] [place] [address] * CANNABINOIDS-URINE RANDOM (11/17/2020 12:40 PM CDT) THC NEG NEG-NEG MAIN LAB Comment: RESULTS WERE OBTAINED BY IMMUNOASSAY AND ARE PRESUMPTIVE ONLY. POSITIVE INDICATES THE PRESENCE OF SUBSTANCE WITH CHARACTERISTICS SIMILAR TO DRUG-DRUG CLASS OR METABOLITE IN CONC. EQUAL TO OR EXCEEDING VALUES LISTED. CANNABINOIDS 50 NG/ML Specimen Urine - Urine Performing Organization Address [facility] P morris Number MAIN LAB [address] [place] [address] * BENZODIAZEPINES-URINE RANDOM (11/17/2020 12:40 PM CDT) Benzodiazepines POS (A) NEG-NEG MAIN LAB Comment: RESULTS WERE OBTAINED BY IMMUNOASSAY AND ARE PRESUMPTIVE ONLY. POSITIVE INDICATES THE PRESENCE OF SUBSTANCE WITH CHARACTERISTICS SIMILAR TO DRUG-DRUG CLASS OR METABOLITE IN CONC. EQUAL TO OR EXCEEDING VALUES LISTED. BENZODIAZEPINES 200 NG/ML Specimen Urine - Urine Performing Organization Address [facility] P morris Number MAIN LAB [address] [place] [address] * BARBITURATES-URINE RANDOM (11/17/2020 12:40 PM CDT) Barbiturates,Ur NEG NEG-NEG MAIN LAB ine Comment: RESULTS WERE OBTAINED BY IMMUNOASSAY AND ARE PRESUMPTIVE ONLY. POSITIVE INDICATES THE PRESENCE OF SUBSTANCE WITH CHARACTERISTICS SIMILAR TO DRUG-DRUG CLASS OR METABOLITE IN CONC. EQUAL TO OR EXCEEDING VALUES LISTED. BARBITURATES 200 NG/ML Specimen Urine - Urine Performing Organization Address [facility] P morris Number MAIN LAB [address] [place] [address] * AMPHETAMINES-URINE RANDOM (11/17/2020 12:40 PM CDT) Amphetamines NEG NEG-NEG [facility] Comment: RESULTS WERE OBTAINED BY IMMUNOASSAY AND ARE PRESUMPTIVE ONLY. POSITIVE INDICATES THE PRESENCE OF SUBSTANCE WITH CHARACTERISTICS SIMILAR TO DRUG-DRUG CLASS OR METABOLITE IN CONC. EQUAL TO OR EXCEEDING VALUES LISTED. AMPHETAMINES 1000 NG/ML Specimen Urine - Urine Performing Organization Address City/[facility] P morris Number MAIN LAB [address] [place] [address] * COVID-19 (SARS-COV-2) PCR (11/17/2020 12:39 PM CDT) Pathologist [facility] COVID-19 FLOCKED SWAB [facility] (SARS-CoV-2) NASOPHARYNGEAL PCR Source COVID-19 NOT DETECTED DN-NOT DETECTED [facility] (SARS-CoV-2) Comment: PCR This assay is designed to detect the N2 and E genes of SARS-CoV-2 using nucleic acid amplification. A Not Detected result does not preclude the possibility of SARS-CoV-2 infection since the adequacy of sample collection and/or low viral burden may result in the presence of viral nucleic acids below the analytical sensitivity of this test method. Test results should be used along with other clinical and laboratory data in making the diagnosis. Test parameters have not been validated for screening in asymptomatic patients. This test has not been FDA cleared or approved. This test is authorized for use under the FDA Emergency Use Authorization and performance characteristics have been verified by the [facility] clinical laboratory. Fact sheet for providers: https://www.fda.gov/media/1515 13/download Fact sheet for patients: https://www.fda.gov/media/3503 12/download Specimen Flocked Swab - Nasopharyngeal Performing Organization Address [facility] P morris Number MAIN LAB [address] [place] [address] * PROCALCITONIN (11/17/2020 11:59 AM CDT) Pathologist [facility] Procalcitonin 0.35 ng/mL MAIN LAB Comment: Suspected Lower Respiratory Tract Infection: >0.25 ng/mL-Increased likeihood bacterial infection Suspected Sepsis: >0.5 ng/mL-Increased likelihood sepsis >2.0 ng/mL-High risk of sepsis/septic shock Specimen Blood Performing Organization Address [facility] P morris Number MAIN LAB [address] [place] [address] * TSH WITH FREE T4 REFLEX (11/17/2020 11:59 AM CDT) TSH 1.48 0.35 - 5.00 MCU/ML MAIN LAB Specimen Blood Performing Organization Address City/[facility] Code P morris Number KU MAIN LAB [address] [place] [phone] * LACTIC ACID (BG - RAPID LACTATE) (11/17/2020 11:59 AM CDT) Lactic Acid,BG 1.6 0.5 - 2.0 MMOL/L [facility] MAIN LAB Specimen Blood Performing Organization Address [facility] Code P morris Number MAIN LAB [address] [place], [place] [id number] * PROTIME INR (PT) (11/17/2020 11:59 AM CDT) INR 1.1 0.8 - 1.2 MAIN LAB Specimen Blood Performing Organization Address [facility] P morris Number MAIN LAB [address] [place] [phone] * PHOSPHORUS (11/17/2020 11:59 AM CDT) Phosphorus 5.6 (H) 2.0 - 4.5 MG/DL MAIN LAB Specimen Blood Performing Organization Address [facility] P morris Number MAIN LAB [address] [place] [phone] * BNP (B-TYPE NATRIURETIC PEPTI) (11/17/2020 11:59 AM CDT) B Type 931.0 (H) 0 - 100 PG/ML MAIN LAB Natriuretic Peptide Specimen Blood Performing Organization Address City/[facility]/ZIP Code P morris Number MAIN LAB [address] [place] [phone] * HEMOGLOBIN A1C (11/17/2020 11:59 AM CDT) Hemoglobin A1C 10.6 (H) 4.0 - 6.0 % MAIN LAB Comment: The ADA recommends that most patients with type 1 and type 2 diabetes maintain an A1c level <7%. Specimen Performing Organization Address City/[facility]/ZIP Code P morris Number MAIN LAB [address] [place] [phone] * AMMONIA (11/17/2020 11:59 AM CDT) Ammonia 54 (H) 9 - 35 MCMOL/L MAIN LAB Specimen Blood Performing Organization Address City/State/ZIP Code P morris Number MAIN LAB [address] [place] [address] * CHEST SINGLE VIEW (11/17/2020 11:50 AM CDT) Specimen Impressions Performed At Interval development of cardiomegaly with pulmonary v ascular congestion and [facility] RAD RESULTS evidence of interstitial or alveolar ed joceline. The findings are consistent with congestive failure or volume overload. The possibility of underlying pneumonia contributing to the alveolar opacities in the lower lobes is also a consideration. Finalized by Uche Carver M.D. on 2020 1:23 PM. Dictated by Uche Carver M.D. on 11/17/2020 1:20 PM. Narrative Performed At CHEST SINGLE [facility] INDICATION: respiratory failure. TECHNIQUE: Portable AP semiupright view of the chest was obtained COMPARISON STUDY: Comparison is made to an examination of 04/16/2011 FINDINGS: Tubes, Lines and Devices: The patient i s intubated. The tip of the endotracheal tube is well above the katie at the le errol of the T5 vertebral body related a gastric tube passes into the stomach. Heart and Vasculature: There is general ized cardiomegaly with pulmonary vascular congestion. Lungs: There are diffusely increased in terstitial markings most apparent in the perihilar zones and lower lobes. There are areas of alveolar confluence in the lower lobes bilaterally. Mediastinum and Karen: Mediastinal confi guration is within normal limits. No hilar masses are identified. Pleura: There are small bilateral pleur al effusions. No pneumothorax is identified. Chest Wall and Soft Tissues: No acute a bnormalities of the chest wall and soft tissues are identified. Procedure Note Interface, Radiant Results - 11/17/2020 1:26 PM CDT CHEST SINGLE VIEW INDICATION: respiratory failure. TECHNIQUE: Portable AP semiupright view of the chest was obtained COMPARISON STUDY: Comparison is made to an examination of 04/16/2011 FINDINGS: Tubes, Lines and Devices: The patient is intubated. The tip of the endotracheal tube is well above the katie at the level of the T5 vertebral body related a gastric tube passes into the stomach. Heart and Vasculature: There is generalized cardiomegaly with pulmonary vascular congestion. Lungs: There are diffusely increased interstitial markings most apparent in the perihilar zones and lower lobes. There are areas of alveolar confluence in the lower lobes bilaterally. Mediastinum and Karen: Mediastinal configuration is within normal limits. No hilar masses are identified. Pleura: There are small bilateral pleural effusions. No pneumothorax is identified. Chest Wall and Soft Tissues: No acute abnormalities of the chest wall and soft tissues are identified. IMPRESSION Interval development of cardiomegaly with pulmonary vascular congestion and evidence of interstitial or alveolar edema. The findings are consistent with congestive failure or volume overload. The possibility of underlying pneumonia contributing to the alveolar opacities in the lower lobes is also a consideration. Finalized by Uche Carver M.D. on 11/17/2020 1:23 PM. Dictated by Uche Carver M.D. on 11/17/2020 1:20 PM. Performing Organization Address City/State/ZIP Code P morris Number [facility] * GENERAL RAD CHEST EXTERNAL IMAGING (11/17/2020 12:20 AM CDT) Only the most recent of 3 results within the time period is included. Specimen Narrative Performed At This order has been auto finalized and does not contain a result. * CT HEAD EXTERNAL IMAGING (11/17/2020 12:15 AM CDT) Specimen Narrative Performed At This order has been auto finalized and does not contain a result. * CT C-SPINE EXTERNAL IMAGING (11/17/2020 12:10 AM CDT) Specimen Narrative Performed At This order has been auto finalized and does not contain a result. * TELEMETRY STRIPS-SCAN (11/17/2020 12:00 AM CDT) Narrative Performed At This result has an attachment that is n ot available. Ordered by an unspecified provider. * TELEMETRY STRIPS-SCAN (11/17/2020 12:00 AM CDT) Narrative Performed At This result has an attachment that is n ot available. Ordered by an unspecified provider. * TELEMETRY STRIPS-SCAN (11/17/2020 12:00 AM CDT) Narrative Performed At This result has an attachment that is n ot available. Ordered by an unspecified provider. * ECG-SCAN (11/17/2020 12:00 AM CDT) Narrative Performed At This result has an attachment that is n ot available. Ordered by an unspecified provider. * ECG-SCAN (11/17/2020 12:00 AM CDT) Narrative Performed At This result has an attachment that is n ot available. Ordered by an unspecified provider. 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 needed 04/20/2011 7:24 PM Full Code 04/17/2011 12:01 AM Provider has discussed Code Status Yes w/Patient or Family?
--- OUTSIDE RECORDS SUMMARY | 2021-01-02 18:27 | XMS REPORT | Clinical Summary ---
Author Author [facility] Organization [facility] Address Unknown Phone Unavailable Care Team Providers Care Grounds Maintenance Supervisor Name Role Phone Mamie Her MD PCP Allergies Comments Active Allergy Reactions Severity Noted Date Morphine 06/20/2014 Medications End Date Status Medication Sig Dispensed Refills Start Date Active albuterol (PROVENTIL Inhale 2 0 HFA;VENTOLIN HFA) 90 puffs every 6 mcg/actuation inhaler (six) hours as needed for wheezing. Active amitriptyline (ELAVIL) 25 Take 25 mg by 0 MG tablet mouth nightly. Active amLODIPine (NORVASC) 5 MG Take 5 mg by 0 tablet mouth daily. Active aspirin 81 MG chewable Chew 81 mg 0 tablet daily. Active buPROPion (WELLBUTRIN SR) Take 150 mg 0 150 MG 12 hr tablet by mouth 2 (two) times a day. Active calcium-vitamin D 500 Take 1 tablet 0 mg(1,250mg) -200 unit per by mouth 2 tablet (two) times a day with meals. Active carvedilol (COREG) 6.25 Take 6.25 mg 0 MG tablet by mouth 2 (two) times a day with meals. Active cetirizine (ZYRTEC) 10 MG Take 10 mg by 0 tablet mouth daily. Active clopidogrel (PLAVIX) 75 Take 75 mg by 0 mg tablet mouth daily. Active cyclobenzaprine Take 10 mg by 0 (FLEXERIL) 10 MG tablet mouth 3 (three) times a day as needed for muscle spasms. Active DULoxetine (CYMBALTA) 60 Take 60 mg by 0 MG capsule mouth daily. Active fluticasone (FLONASE) 50 1 spray into 0 mcg/actuation nasal spray each nostril daily. Active fluticasone-salmeterol Inhale 1 puff 0 (ADVAIR) 250-50 mcg/dose 2 (two) times DISKUS a day. Active furosemide (LASIX) 20 MG Take 20 mg by 0 tablet mouth 2 (two) times a day. Active HYDROcodone-acetaminophen Take 1 tablet 0 (NORCO) 5-325 mg per by mouth tablet every 6 (six) hours as needed for pain. Active lisinopril Take 10 mg by 0 (PRINIVIL,ZESTRIL) 10 MG mouth daily. tablet Active loratadine (CLARITIN) 10 Take 10 mg by 0 mg tablet mouth daily. Active metFORMIN (GLUCOPHAGE) Take 500 mg 0 500 MG tablet by mouth 2 (two) times a day with meals. Active nitroglycerin (NITROSTAT) Place 0.4 mg 0 0.4 MG SL tablet under the tongue every 5 (five) minutes as needed for chest pain. May repeat for a total of 3 doses. Active pantoprazole (PROTONIX) Take 40 mg by 0 40 MG tablet mouth every morning. Active pregabalin (LYRICA) 150 Take 150 mg 0 MG capsule by mouth 2 (two) times a day. Active rOPINIRole (REQUIP) 1 MG Take 1 mg by 0 tablet mouth 3 (three) times a day. Active sitaGLIPtin (JANUVIA) 100 Take 100 mg 0 MG tablet by mouth daily. Active tiotropium (SPIRIVA) 18 Place 18 mcg 0 mcg inhalation capsule into inhaler and inhale daily. Active potassium chloride Take 10 mEq 0 (K-DUR,KLOR-CON) 10 MEQ by mouth tablet daily. Active insulin glargine (LANTUS) Inject 35 0 100 unit/mL injection Units under the skin nightly. Active Problems Problem Noted Date COPD (chronic obstructive pulmonary dis ease) Overview: Formatting of this note might be differ ent from the original. Oxygen at night Diabetes mellitus Hypertension Hyperlipidemia Diabetic peripheral neuropathy associat ed with type 2 diabetes mellitus Depression Carotid artery disease Cataract Congestive heart failure Valvular heart disease Resolved Problems Problem Noted Date Resolved Date Paresthesia 06/21/2014 06/22/2014 Numbness of extremity 06/20/2014 06/22/2014 Headache 06/22/2014 Family History Medical History Relation Name Comments Coronary artery disease Brother Other Brother Diagnosed with [place] ne's Hypertension Father Coronary artery disease Mother Other Mother Diagnosed with HTN, Other Sister Diagnosed with HTN, Relation Name Status Comments Brother Alive Brother Father Cause of was NE at age 58. (Age 58) Mother Sister Son Alive Son MVA Social History Date Tobacco Use Types Packs/Day Years Used Former Smoker 1 30 Comments Alcohol Use Standard Drinks/Week No 0 (1 standard drink = 0.6 o z pure alcohol) Sex Assigned at Date Recorded Not on file Last Filed Vital Signs Reading Time Taken Comments Vital Sign 121/57 06/22/2014 4:16 PM RECEIVING MANAGER Blood Pressure 90 06/22/2014 4:16 PM RECEIVING MANAGER Pulse 36.7 C (98.1 F) 06/22/2014 4:16 PM RECEIVING MANAGER Temperature 18 06/22/2014 4:16 PM RECEIVING MANAGER Respiratory Rate 97% 06/22/2014 4:16 PM RECEIVING MANAGER Oxygen Saturation - - Inhaled Oxygen Concentration 100.2 kg (221 lb) 06/20/2014 6:21 PM RECEIVING MANAGER Weight 170.2 cm (5' 7.01") 06/20/2014 6:21 PM RECEIVING MANAGER Height 34.61 06/20/2014 6:21 PM RECEIVING MANAGER Body Mass Index Plan of Treatment Not on file Results Not on filefrom Last 3 Months Advance Directives For more information, please contact: [phone] Date Inactivated Comments Code Status Date Activated 06/22/2014 6:44 PM Full Code 06/21/2014 2:26 AM
--- OUTSIDE RECORDS SUMMARY | 2021-01-02 18:28 | XMS REPORT | Encounter Summary ---
Author Author [facility] Organization [facility] Address Unknown Phone Unavailable Care Team Providers Care Senior Interactive Producer Name Role Phone Henrry See MD PCP Bradley Barraza MD 3 Encounter Details Care Team Description Date Type Department 11/17/2020 Hospital Imaging: [facility], [facility] [address] [place] [address] Social History Date Tobacco Use Types Packs/Day Years Used Quit: 04/16/2000 Former Smoker Cigarettes 1 30 Smokeless Tobacco: Former Quit: 04/16/1990 User Drinks/Week oz/Week Comments Alcohol Use No Sex Assigned at Date Recorded Not on file documented as of this encounter Medications at Time of Discharge Start Date End Date Medication Sig Dispensed Refills albuterol (VENTOLIN HFA, Inhale 2 0 PROAIR HFA) 90 puffs by mcg/Actuation inhaler mouth into the lungs every 4 hours as needed. 2 puff q4hrs as needed for shortness of breath or cough amiodarone (CORDARONE) Take 200 mg 0 200 mg tablet by mouth daily. Take with food. 11/22/2020 amoxicillin-potassium Take one 2 tablet 0 clavulanate (AUGMENTIN) tablet by 875/125 mg tablet mouth every 12 hours. Start taking 11/22. Take with food. apixaban (ELIQUIS) 5 mg Take 5 mg by 0 tablet mouth twice daily. atorvastatin (LIPITOR) 80 Take 80 mg by 0 mg tablet mouth daily. calcium carb/magnesium Take 2 0 carb (CALCIUM & MAGNESIUM tablets by CARBONATES PO) mouth daily. cetirizine (ZYRTEC) 10 mg Take 10 mg by 0 tablet mouth daily. cholecalciferol (VITAMIN Take 1,000 0 D-3) 1,000 units tablet Units by mouth daily. clopidogrel (PLAVIX) 75 Take 75 mg by 0 mg mouth daily. cyclobenzaprine Take 10 mg by 0 (FLEXERIL) 10 mg tablet mouth three times daily as needed. diclofenac sodium Apply 0 (SOLARAZE) 3 % gel topically to affected area twice daily. 11/22/2020 doxycycline hyclate Take one 2 tablet 0 (VIBRAMYCIN) 100 mg tablet by tablet mouth every [address] (CYMBALTA) Take 60 mg by 0 60 mg capsule mouth daily. fish oil /omega-3 fatty Take 1 0 acids (SEA-OMEGA) capsule by 340/1000 mg capsule mouth twice daily. fluticasone propionate Apply 2 0 (FLONASE) 50 sprays to mcg/actuation nasal each nostril spray, suspension as directed twice daily. Shake bottle gently before using. fluticasone/umeclidin/joanna Inhale 1 puff 0 anter (TRELEGY ELLIPTA by mouth into IN) the lungs daily. insulin detemir U-100(+) Inject 55 0 (LEVEMIR) 100 unit/mL Units under vial the skin daily. 04/20/2011 isosorbide mononitrate SR Take 1 Tab by 90 Tab 3 (IMDUR) 30 mg tablet mouth daily. MULTIVITAMIN PO Take 1 tablet 0 by mouth daily. nitroglycerin (NITROSTAT) Place 0.4 mg 0 0.4 mg tablet under tongue every 5 minutes as needed for Chest Pain. Max of 3 tablets, call 911. ondansetron (ZOFRAN ODT) Dissolve 4 mg 0 4 mg rapid dissolve by mouth tablet every 8 hours as needed for Nausea or Vomiting. Place on tongue to dissolve. potassium chloride SR Take 20 mEq 0 (K-DUR) 20 mEq tablet by mouth twice daily. Take with a meal and a full glass of water. pregabalin (LYRICA) 150 Take 150 mg 0 mg capsule by mouth three times daily. rOPINIRole (REQUIP) 1 mg Take 1 mg by 0 tablet mouth three times daily. sucralfate (CARAFATE) 1 Take 1 g by 0 gram tablet mouth every 6 hours. Take on an empty stomach. vitamins, multi Take 1 tablet 0 w/minerals 9 mg iron-400 by mouth mcg tab daily. 11/18/2020 aspirin 325 mg tablet Take 81 mg by 0 mouth daily. 11/21/2020 aspirin EC 81 mg tablet Take 81 mg by 0 mouth daily. Take with food. 11/18/2020 Calcium Carbonate 160 mg Chew by 0 calcium (400 mg) chew mouth. 11/18/2020 docosahexaenoic acid/epa Take by 0 (FISH OIL PO) mouth. 04/20/2011 11/18/2020 docusate (COLACE) 100 mg Take 1 Cap by 60 Cap 0 capsule mouth daily as needed for Constipation. 11/18/2020 fluticasone/salmeterol Inhale 1 Puff 0 (ADVAIR) 250/50 mcg by mouth inhalation disk every 12 hours. 11/21/2020 losartan (COZAAR) 25 mg Take 12.5 mg 0 tablet by mouth daily. 11/18/2020 ondansetron (ZOFRAN) 4 mg Take 4 mg by 0 tablet mouth every 8 hours as needed for Nausea or Vomiting. 11/18/2020 tiotropium (SPIRIVA) 18 Inhale 18 mcg 0 mcg capsule for inhaler by mouth daily. documented as of this encounter Discharge Disposition Code Departure Means Destination Disposition Home Home or Self Care documented in this encounter Plan of Treatment Not on filedocumented as of this encounter Goals Goal Patient Associated Recent Progress Patient-Stat Aut hor Goal Type Problems ed? Resume normal activities Hospital On track (11/20/2020 Carolyn Jean, 5:03 AM CDT) BRI Fontenot documented as of this encounter Procedures Comments Procedure Name Priority Date/Time Associated Diag nosis CT C-SPINE EXTERNAL Routine 11/17/2020 IMAGING 12:10 AM CDT documented in this encounter Results * CT C-SPINE EXTERNAL IMAGING (11/17/2020 12:10 AM CDT) Specimen Narrative Performed At This order has been auto finalized and does not contain a result. documented in this encounter Visit Diagnoses Not on filedocumented in this encounter Additional Health Concerns Assessment Noted Time A fall risk assessment has been completed for the pat ient 11/17/2020 8:00 PM CDT documented as of this encounter
--- OUTSIDE RECORDS SUMMARY | 2021-01-02 18:28 | XMS REPORT | Encounter Summary ---
Author Author [facility] Organization [facility] Address Unknown Phone Unavailable Care Team Providers Care Skein Inspector Name Role Phone Henrry See MD PCP Bradley Barraza MD 3 Encounter Details Care Team Description Date Type Department 11/17/2020 Hospital Imaging: [facility], [facility]counter [facility] [address], [address] [place] [address] Social History Date Tobacco Use [...] Procedure Name Priority Date/Time Associated Diag nosis GENERAL RAD CHEST Routine 11/17/2020 EXTERNAL IMAGING 12:05 AM CDT documented in this encounter Results * GENERAL RAD CHEST EXTERNAL IMAGING (11/17/2020 12:05 AM CDT) Specimen Narrative Performed At This order has been auto finalized and does not contain a result. documented in this encounter Visit Diagnoses Not on filedocumented in this encounter Additional Health Concerns Assessment Noted Time A fall risk assessment has been completed for the pat ient 11/17/2020 8:00 PM CDT documented as of this encounter
--- OUTSIDE RECORDS SUMMARY | 2021-01-02 18:28 | XMS REPORT | Encounter Summary ---
Author Author [facility] Organization [facility] Address Unknown Phone Unavailable Care Team Providers Care Associate Director Finance Name Role Phone Henrry See MD PCP Bradley Barraza MD 3 Encounter Details Care Team Description Date Type Department 11/17/2020 Hospital Imaging: Main [facility], Encounter [facility] [address], [address] [place] [address] Social History Date Tobacco Use [...] Routine 11/17/2020 EXTERNAL IMAGING 12:00 AM CDT documented in this encounter Results * GENERAL RAD CHEST EXTERNAL IMAGING (11/17/2020 12:00 AM CDT) Specimen Narrative Performed At This order has been auto finalized and does not contain a result. documented in this encounter Visit Diagnoses Not on filedocumented in this encounter Additional Health Concerns Assessment Noted Time A fall risk assessment has been completed for the pat ient 11/17/2020 8:00 PM CDT documented as of this encounter
--- OUTSIDE RECORDS SUMMARY | 2021-01-02 18:28 | XMS REPORT | Encounter Summary ---
Author Author [facility] Organization [facility] Address Unknown Phone Unavailable Care Team Providers Care Blank Driller Name Role Phone Henrry See MD PCP Bradley Barraza MD 3 Encounter Details Care Team Description Date Type Department 11/17/2020 Hospital Imaging: Main [facility], Encounter [facility] [address], [address] [place] [address] Social History Date Tobacco Use Types Packs/Day Years Used Quit: 04/16/2000 Former Smoker Cigarettes 1 30 Smokeless Tobacco: Former Quit: 04/16/1990 User Drinks/Week oz/Week Comments Alcohol Use No Sex Assigned at Date Recorded Not on file Date Recorded COVID-19 Exposure Response 11/17/2020 7:41 AM CDT In the last month, have you been in contact with [facility] to assess someone who was confirmed or suspected to have Coronavirus / COVID-19? documented as of this encounter Medications at [...] Routine 11/17/2020 EXTERNAL IMAGING 12:20 AM CDT documented in this encounter Results * GENERAL RAD CHEST EXTERNAL IMAGING (11/17/2020 12:20 AM CDT) Specimen Narrative Performed At This order has been auto finalized and does not contain a result. documented in this encounter Visit Diagnoses Not on filedocumented in this encounter Additional Health Concerns Last Indicated Resolved Time Infection Onset Date 11/17/2020 11/17/2020 2:22 PM CDT Covid-19 Rule-Out 11/17/2020 Assessment Noted Time A fall risk assessment has been completed for the pat ient 11/17/2020 8:00 PM CDT documented as of this encounter
--- OUTSIDE RECORDS SUMMARY | 2021-01-02 18:28 | XMS REPORT | Encounter Summary ---
Author Author [facility] Organization [facility] Address Unknown Phone Unavailable Care Team Providers Care Tipple Supervisor Name Role Phone Henrry See MD PCP Bradley Barraza MD 3 Encounter Details Care Team Description Date Type Department Gayla Chavez, COUNTER SUPERVISOR-DRAFTER APPRENTICE [address] [facility] [address] [place] [address] 11/17/2020 Hospital Imaging: Main [place] [facility], Encounter [facility] [address] [place] [address] Social History Date Tobacco Use Types Packs/Day Years Used Quit: 04/16/2000 Former Smoker Cigarettes 1 30 Smokeless Tobacco: Former Quit: 04/16/1990 User Drinks/Week oz/Week Comments Alcohol Use No Sex Assigned at Date Recorded Not on file Date Recorded COVID-19 Exposure Response 11/17/2020 7:41 AM CDT In the last month, have you been in contact with [facility] to assess someone who was confirmed or [...] mg by 0 mg tablet mouth daily. bumetanide (BUMEX) 2 mg Take 2 mg by 0 tablet mouth twice daily. calcium carb/magnesium Take 2 0 carb [...] 3 (IMDUR) 30 mg tablet mouth daily. meloxicam (MOBIC) 15 mg Take 15 mg by 0 tablet mouth daily. MULTIVITAMIN PO Take 1 [...] or Vomiting. Place on tongue to dissolve. pantoprazole DR Take 40 mg by 0 (PROTONIX) 40 mg tablet mouth daily. potassium chloride SR Take 20 mEq 0 (K-DUR) 20 mEq tablet by mouth twice daily. Take with a meal and a full glass of water. pregabalin (LYRICA) 150 Take 150 mg 0 mg capsule by mouth three times daily. rOPINIRole (REQUIP) 1 mg Take 1 mg by 0 tablet mouth three times daily. sacubitriL-valsartan Take 1 tablet 0 (ENTRESTO) 24-26 mg by mouth tablet twice daily. semaglutide (OZEMPIC) Inject 0.5 mg 0 0.25 mg or 0.5 mg(2 under the mg/1.5 mL) injection PEN skin every 7 days. sucralfate (CARAFATE) 1 Take 1 g by [...] hours as needed for Nausea or Vomiting. 11/21/2020 SITagliptin (JANUVIA) 100 Take 100 mg 0 mg tab tablet by mouth daily. 11/18/2020 tiotropium (SPIRIVA) 18 Inhale 18 mcg 0 mcg capsule for inhaler by mouth daily. documented as of this encounter Discharge Disposition Code Departure Means Destination Disposition Home Home or Self Care documented in this encounter Plan of Treatment Date/Time Name Type Priority Associated Diag noses 11/17/2020 11:30 AM CDT POC MICU US CARDIAC Imaging Routine LIMITED documented as of this encounter Goals Goal Patient Associated Recent Progress Patient-Stat Aut hor Goal Type Problems ed? Resume normal activities Hospital On track (11/20/2020 Carolyn Jean, 5:03 AM CDT) BRI Fontenot documented as of this encounter Visit Diagnoses Not on filedocumented in this encounter Additional Health Concerns Last Indicated Resolved Time Infection Onset Date 11/17/2020 11/17/2020 2:22 PM CDT Covid-19 Rule-Out 11/17/2020 11/17/2020 11/17/2020 9:43 PM CDT Respiratory Rule-Out 11/17/2020 Assessment Noted Time A fall risk assessment has been completed for the pat ient 11/17/2020 8:00 PM CDT documented as of this encounter
--- OUTSIDE RECORDS SUMMARY | 2021-01-02 18:28 | XMS REPORT | Encounter Summary ---
Author Author [facility] Organization [facility] Address Unknown Phone Unavailable Care Team Providers Care Head Control Clerk Name Role Phone Henrry See MD PCP Bradley Barraza MD 3 Encounter Details Care Team Description Date Type Department 11/17/2020 Travel Social History Date Tobacco Use Types Packs/Day [...] / COVID-19? documented as of this encounter Plan of Treatment Not on [...]
--- OUTSIDE RECORDS SUMMARY | 2021-01-02 18:28 | XMS REPORT | Encounter Summary ---
Author Author [facility] Organization [facility] Address Unknown Phone Unavailable Care Team Providers Care Parent Coach Name Role Phone Henrry See MD PCP Bradley Barraza MD 3 Reason for Visit * Auth/Cert Referred By Contact Referred To Contact Status Reason Specialty Diagnoses / Procedures Diagnoses Acute respiratory failure with hypoxia and hypercapnia (HCC) resp failure Encounter Details Care Team Description Date Type Department Bigg Augustin MD [address] [facility] Lvl [address] [place] [id number] Joy Peterson MD [address] [facility] Lvl [address] [place] [id number] Elder Valencia, DO [address] [place] [address] Acute respiratory failure with hypoxia a nd hypercapnia (HCC) 11/17/2020 Hospital Patient Care Unit B H62: - Encounter Main [place], Main 11/21/2020 Hospital [address] [facility] Level [address] [place] [address] Social History Date Tobacco Use [...] / COVID-19? documented as of this encounter Last Filed Vital Signs Reading Time Taken [...] 11/17/2020 3:28 PM CDT Body Mass Index documented in this encounter Functional Status Date of Assessment Functional Status Response 11/21/2020 Does the patient have a hearing impairment: No 11/21/2020 Does the patient have a visual impairment: No 11/21/2020 Does the patient have impaired ambulation: No 11/21/2020 Does the patient have an activity of daily living No (ADL) impairment: 11/21/2020 Does the patient have an instrumental activity of No daily living (IADL) impairment: Date of Assessment Cognitive Status Response 11/21/2020 Does the patient have a cognitive impairment: No documented as of this encounter Discharge Summaries * Macy Smith MD - 11/21/2020 4:35 PM CDT Discharge Summary Name: Camila Caldwell Date Of : 1955 Age: 64 years Admit date: 11/17/2020 Discharge date: 11/21/20 Discharge Attending: Iliana Discharge Summary Completed By: Macy Smith MD Service: Med 2041 Reason for hospitalization: Acute respiratory failure with hypoxia and hypercapnia (HCC) [J96.01, J96.02] Primary Discharge Diagnosis: Same as Above Hospital Diagnoses: Hospital Problems Active Problems * (Principal) Acute respiratory failure with hypoxia and hypercapnia (HCC) HTN (hypertension) DM (diabetes mellitus) (HCC) CAD (coronary artery disease) CHF (congestive heart failure) (HCC) COPD (chronic obstructive pulmonary disease) (HCC) Metabolic acidosis A-fib (HCC) Significant Past Medical History CHF (congestive heart failure) (HCC) COPD (chronic obstructive pulmonary disease) (HCC) DM (diabetes mellitus) (HCC) Gastrointestinal disorder HLD (hyperlipidemia) Hypertension Myocardial infarction (HCC) Restless legs syndrome (RLS) Allergies Morphine Brief Hospital Course The patient was admitted and the following issues were addressed during this hos pitalization: (with pertinent details including admission exam/imaging/labs). Inga Caldwell is a 64yo F w/ a PMHx of HTN, DM, CAD s/p stenting, CHF, COPD and c hronic pain who presented to OSH after fall and altered level of consciousness. Patient was in normal state of health when she went to sleep 11/16, was found AM 11/17 by family. Required intubation at OSH then transferred to [facility] ICU. 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 Cause for alt ered mental status/fall was likely hypercapnea and infection. She underwent bron choscopy and was found to have MSSA PNA. She was started on doxycycline and cefa zoline. Successfully extubated 11/18 and transferred to floor. On 11/21 she was ch anged to augmentin and doxycycline for total antibiotic course of 6 days. Exerci se oximetry was performed and she did not require O2 on discharge. ASA was stopp ed on discharge as her last stenting was Jun 2020. On 11/21 she was discharged to home in stable condition with medications as outlined below. Items Needing Follow Up Pending items or areas that need to be addressed at follow up: None Pending Labs and Follow Up Radiology Pending labs and/or radiology review at this time of discharge are listed below: if this area is blank, there are no items for review. Pending Labs Order Current Status CULTURE-RESP,LOWER W/SENSITIVITY Collected (11/17/20 1546) TROPONIN-I Collected (11/17/20 5038) CULTURE-FUNGAL,OTHER In process CYTOLOGY SPECIMEN LABEL In process CULTURE-BLOOD W/SENSITIVITY Preliminary result CULTURE-BLOOD W/SENSITIVITY Preliminary result CULTURE-TB (AFB) Preliminary result Medications Medication List START taking these medications amoxicillin-potassium clavulanate 875/125 mg tablet; Commonly known as: AUGMENTIN; Dose: 1 tablet; Take one tablet by mouth every 12 hours. Start taking 11/22. Take with food.; Quantity: 2 tablet; Refills: 0 doxycycline hyclate 100 mg tablet; Commonly known as: VIBRAMYCIN; Dose: 100 mg; Take one tablet by mouth every 12 hours.; Quantity: 2 tablet; Refills: 0 CONTINUE taking these medications albuterol sulfate 90 mcg/actuation HFA aerosol inhaler; Commonly known as: PROAIR HFA; Dose: 2 puff; Refills: 0 amiodarone 200 mg tablet; Commonly known as: CORDARONE; Dose: 200 mg; Refills: 0 apixaban 5 mg tablet; Commonly known as: ELIQUIS; Dose: 5 mg; Refills: 0 bumetanide 2 mg tablet; Commonly known as: BUMEX; Dose: 2 mg; Refills: 0 CALCIUM & MAGNESIUM CARBONATES PO; Dose: 2 tablet; Refills: 0 cetirizine 10 mg tablet; Commonly known as: ZyrTEC; Dose: 10 mg; Refills: 0 cholecalciferol 1,000 units tablet; Commonly known as: VITAMIN D-3; Dose: 1,000 Units; Refills: 0 clopiDOGrel 75 mg tablet; Commonly known as: PLAVIX; Dose: 75 mg; Refills: 0 cyclobenzaprine 10 mg tablet; Commonly known as: FLEXERIL; Dose: 10 mg; Refills: 0 CYMBALTA 60 mg capsule; Generic drug: duloxetine DR; Dose: 60 mg; Refills: 0 diclofenac sodium 3 % gel; Commonly known as: SOLARAZE; Refills: 0 fish oil /omega-3 fatty acids 340/1000 mg capsule; Commonly known as: SEA-OMEGA; Dose: 1 capsule; Refills: 0 fluticasone propionate 50 mcg/actuation nasal spray, suspension; Commonly known as: FLONASE; Dose: 2 spray; Refills: 0 insulin detemir U-100(+) 100 unit/mL vial; Commonly known as: LEVEMIR; Dose: 55 Units; Refills: 0 isosorbide mononitrate ER 30 mg tablet; Commonly known as: IMDUR; Dose: 30 mg; Take 1 Tab by mouth daily.; Quantity: 90 Tab; Refills: 3 LIPITOR 80 mg tablet; Generic drug: atorvastatin; Dose: 80 mg; Refills: 0 meloxicam 15 mg tablet; Commonly known as: MOBIC; Dose: 15 mg; Refills: 0 MULTIVITAMIN PO; Dose: 1 tablet; Refills: 0 nitroglycerin 0.4 mg tablet; Commonly known as: NITROSTAT; Dose: 0.4 mg; Refills: 0 ondansetron 4 mg rapid dissolve tablet; Commonly known as: ZOFRAN ODT; Dose: 4 mg; Refills: 0 OZEMPIC 0.25 mg or 0.5 mg(2 mg/1.5 mL) injection PEN; Generic drug: semaglutide; Dose: 0.5 mg; Refills: [address] 40 mg tablet; Commonly known as: PROTONIX; Dose: 40 mg; Refills: 0 potassium chloride SR 20 mEq tablet; Commonly known as: K-DUR; Dose: 20 mEq; Refills: 0 pregabalin 150 mg capsule; Commonly known as: LYRICA; Dose: 150 mg; Refills: 0 rOPINIRole 1 mg tablet; Commonly known as: REQUIP; Dose: 1 mg; Refills: 0 sacubitriL-valsartan 24-26 mg tablet; Commonly known as: ENTRESTO; Dose: 1 tablet; Refills: 0 sucralfate 1 gram tablet; Commonly known as: CARAFATE; Dose: 1 g; Refills: 0 TRELEGY ELLIPTA IN; Dose: 1 puff; Refills: 0 vitamins, multi w/minerals 9 mg iron-400 mcg Tab; Dose: 1 tablet; Refills: 0 STOP taking these medications aspirin EC 81 mg tablet Return Appointments and Scheduled Appointments No appointment scheduled Consults, Procedures, Diagnostics, Micro, Pathology Consults: None Surgical Procedures & Dates: None Significant Diagnostic Studies, Micro and Procedures: noted in brief hospital co urse Significant Pathology: none Nutrition: No Dietitian Consult Discharge Disposition, Condition Patient Disposition: Home Condition at Discharge: Stable Code Status Code Status History Date Active Date Inactive Code Status Order ID 11/17/2020 [id number] 11/21/2020 1842 Full Code [id number] Bigg Augustin MD Inpat ient 04/17/2011 0001 04/20/2011 1924 Full Code [id number] Isaias, Jason, [employer] OPER[employer] Patient Instructions Diabetic Diet You should eat between 1600 and 2000 calories per day. This is equal to 60g (g carly) of carbohydrates per meal, and 30g of carbohydrates for a bedtime snack. If you have questions about your diet after you go home, you can call a dietitia n at [phone]. Report These Signs and Symptoms Please contact your doctor if you have any of the following symptoms: temperatu re higher than 100.4 degrees F or difficulty breathing Questions About Your Stay If you have an emergency after discharge, please dial [id number]. You may contact your discharging physician up to 7 days after discharge for ques tions about your hospitalization, discharge instructions, or medications by call ing [phone] during regular business hours (8AM-4PM) and asking to speak to the doctor listed on the discharge information. If you are not calling during business hours, ask for the on-call doctor. If you have new or worsening symptoms, you may be directed to your primary care provider (PCP) for ongoing questions, an Emergency Department, or an Urgent Care Clinic for a more immediate evaluation. For all calls or questions more than 7 days after discharge, please contact your primary care provider (PCP). For medications after discharge: pain (opioid) medicine cannot be refilled or pr escribed by calling your discharging physician. These medications need to be fi lled by your primary care provider (PCP). Regular refill requests should be dir ected to your primary care provider (PCP). Discharging attending physician: ELDER VALENCIA [[id number]] Activity as Tolerated It is important to keep increasing your activity level after you leave the hosp ital. Moving around can help prevent blood clots, lung infection (pneumonia) an d other problems. Gradually increasing the number of times you are up moving ar ound will help you return to your normal activity level more quickly. Continue to increase the number of times you are up to the chair and walking daily to ret urn to your normal activity level. Begin to work toward your normal activity lev el in 2 day(s) Additional Discharge Instructions May return to work on November 26, 2020 Additional Orders: Case Management, Supplies, Home Health Home Health/DME None Signed: Macy Smith MD 11/22/2020 cc: Primary Care Physician: Henrry See Verified Referring physicians: Unknown, Jordi, Additional provider(s): Did we miss something? If additional records are needed, please fax a request on office letterhead to [phone]. Please include the patient's name, date of b irth, fax number and type of information needed. Additional request can be made by email at [email or web address]. For general questions of information about electronic records sharing, call [phone]. documented in this encounter Medications at Time of Discharge [...] mg iron-400 by mouth mcg tab daily. documented as of this encounter Ordered Prescriptions Start Date End Date Prescription Sig Dispensed Refills 11/22/2020 doxycycline hyclate Take one 2 tablet 0 (VIBRAMYCIN) 100 mg tablet by tablet mouth every 12 hours. 11/22/2020 amoxicillin-potassium Take one 2 tablet 0 clavulanate (AUGMENTIN) tablet by 875/125 mg tablet mouth every 12 hours. Start taking 11/22. Take with food. documented in this encounter Discharge Disposition Code Departure Means Destination Disposition Wheelchair Home or Self Care documented in this encounter Progress Notes * Nani Valdivia RN - 11/21/2020 4:35 PM CDT Camila Caldwell discharged on 11/21/2020. Discharge instructions reviewed with patient. Valuables returned: Home w/ patient Home medications: NA Functional assessment at discharge complete: Yes *I took patient off unit in wheelchair at this time * Michelle Bragg, PT - 11/21/2020 3:55 PM CDT PHYSICAL THERAPY NOTE Name: Camila Caldwell : 1955 Age: 64 y.o. Admission Date: 11/17/2020 LOS: 4 days Patient preparing to discharge home with . No questions or concerns, decl ilya need for Outpatient PT after discharge. Recommended to request orders from PCP if she feels she has ongoing strength/mobility deficits once home. Therapist: Michelle Bragg PT, DPT Date: 11/21/2020 * Shabbir Russell DO - 11/21/2020 2:43 PM CDT General Progress Note Name: Camila Caldwell Today's Date: 11/21/2020 Admission Date: 11/17/2020 LOS: 4 days Assessment/Plan: Principal Problem: Acute respiratory failure with hypoxia and hypercapnia (HCC) Active Problems: HTN (hypertension) DM (diabetes mellitus) (HCC) CAD (coronary artery disease) CHF (congestive heart failure) (HCC) COPD (chronic obstructive pulmonary disease) (HCC) Metabolic acidosis A-fib (HCC) Camila Caldwellis a 64 y.o.femalewith PMH significant for CHF, CAD s/p sten ting, COPD, DM, HTN, HLD,chronic pain who presented to OSH after fall and alte red level of consciousness. Patient was in normal state of health when she went to sleep 11/16, was found AM 11/17 by family. Required intubation at OSH then sol sferred to [facility] ICU. Found to have MSSA PNA and started on ABX. Successfully e xtubated 11/18 and transferred to floor. 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 and vanc at OSH - Bronch completed 11/17 with MSSA - Extubated to NC 11/18 Plan - switch to augmentin and doxycycline, final day 11/22 - Diuresis w/ 2 mg bumetanide BID - ExOx: no O2 needed Encephalopathy - resolved Fall - fell at home - CT head OSH normal - UDS + benzos, pt denies taking benzos at home Hx CAD s/p stenting HTN A fib - on ASA, eliquis, plavix 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 Valencia Nutrition: Dietitian Documentation Edema: No Mild Generalized Wound: No Wound Consult Shabbir Russell, Subjective Camila Caldwell is a 64 y.o. female. She had some blood streaked sputum overnight . There was no change in O2 requirement, CP, or SOB at that time. This had resol christiano by this morning. She has no complaints and would like to D/C today. Medications Scheduled Meds:amiodarone (CORDARONE) tablet 200 mg, 200 mg, Oral, QDAY apixaban (ELIQUIS) tablet 5 mg, 5 mg, Oral, BID atorvastatin (LIPITOR) tablet 80 mg, 80 mg, Oral, QDAY bumetanide (BUMEX) tablet 2 mg, 2 mg, Oral, BID cholecalciferol (VITAMIN D-3) tablet 1,000 Units, 1,000 Units, Oral, QDAY clopiDOGrel (PLAVIX) tablet 75 mg, 75 mg, Oral, QDAY diclofenac sodium (VOLTAREN) 1 % topical gel 2 g, 2 g, Topical, BID doxycycline hyclate (VIBRAMYCIN) tablet 100 mg, 100 mg, Oral, Q12H* duloxetine DR (CYMBALTA) capsule 60 mg, 60 mg, Oral, QDAY fluticasone propionate (FLONASE) nasal spray 2 spray, 2 spray, Each Nostril, BID fluticasone propionate (FLOVENT HFA) 44 mcg/actuation inhaler 1 puff, 1 puff, In halation, BID And umeclidinium-vilanteroL (ANORO ELLIPTA) 62.5-25 mcg/actuation inhaler 1 puff, 1 puff, Inhalation, QDAY insulin aspart U-100 (NOVOLOG FLEXPEN) injection PEN 0-24 Units, 0-24 Units, Sub cutaneous, ACHS (22) insulin glargine (LANTUS SOLOSTAR) injection PEN 20 Units, 20 Units, Subcutaneou s, BID polyethylene glycol 3350 (MIRALAX) packet 17 g, 1 packet, Oral, QDAY pregabalin (LYRICA) capsule 50 mg, 50 mg, Oral, TID rOPINIRole (REQUIP) tablet 1 mg, 1 mg, Oral, TID vitamins, multiple tablet 1 tablet, 1 tablet, Oral, QDAY(08) Continuous Infusions: PRN and Respiratory Meds:acetaminophen Q6H PRN, albuterol-ipratropium Q4H PRN, b enzonatate TID PRN, bisacodyL QDAY PRN, camphor/menthol TID PRN, cyclobenzaprine TID PRN, docusate QDAY PRN, eucalyptus-menthol Q2H PRN, ondansetron Q8H PRN, pa ncrelipase 20,880 Units/sodium bicarbonate 650 mg (KU CLOG DESTROYER) PRN (On Ca ll from Rx) Review of Systems: 14 pt ROS negative unless mentioned in subjective. Objective: Vital Signs: Last Filed Vital Signs: 24 Robbi r Range BP: 102/71 (11/21 112) Temp: 36.2 C (97.2 F) (11/21 112) Pulse: 86 (11/21 112) Respirations: 22 PER MINUTE (11/21 1122) SpO2: 92 % (11/21 1122) BP: (101-148)/(58-71) Temp: [36.2 C (97.2 F)-37 C (98.6 F)] Pulse: [76-87] Respirations: [16 PER MINUTE-24 PER MINUTE] SpO2: [92 %-98 %] Intensity Pain Scale (Self Report): 5 (11/21/20 0815) Vitals: 11/19/20 0700 11/20/20 0219 11/21/20 0332 Weight: 100.3 kg (221 lb 1.9 oz) 100 kg (220 lb 7.4 oz) 99.6 kg (219 lb 9.3 oz) Intake/Output Summary: (Last 24 hours) Intake/Output Summary (Last 24 hours) at 11/21/2020 1443 Last data filed at 11/21/2020 1150 Gross per 24 hour Intake 1497 ml Output 0 ml Net 1497 ml Stool Occurrence: 0 Physical Exam Constitutional: She is oriented to person, place, and time and well-developed, w ell-nourished, and in no distress. HENT: Head: Normocephalic and atraumatic. Mouth/Throat: Oropharynx is clear and moist. Eyes: EOM are normal. No scleral icterus. Neck: No JVD present. Cardiovascular: Normal rate and regular rhythm. No murmur heard. Pulmonary/Chest: Effort normal. Coarse breath sounds bilaterally Abdominal: Soft. Bowel sounds are normal. She exhibits no distension. There is n o abdominal tenderness. Musculoskeletal: General: No edema. Normal range of motion. Cervical back: Normal range of motion. Neurological: She is alert and oriented to person, place, and time. Skin: Skin is warm and dry. Psychiatric: Affect and judgment normal. Lab Review Pertinent labs reviewed Point of Care Testing (Last 24 hours) Glucose: (!) 190 (11/21/20 0727) POC Glucose (Download): (!) 186 (11/21/20 1115) Radiology and other Diagnostics Review: Pertinent radiology reviewed. Shabbir Russell DO Associated attestation - Elder Valencia DO - 11/23/2020 9:21 AM CDT ATTESTATION I personally performed the fernandes portions of the E/M visit, discussed case with e resident and concur with the documentation of history, physical exam, assessme nt, and treatment plan unless otherwise noted. I spent the below noted time prov iding and personally directing care that included: systems and physical examinat ion, review of laboratory data, review of imaging studies, review of medications , fluid and electrolyte management, hemodynamic monitoring, optimization of bloo d pressure, and coordination of care with consulting services. Care plan was discussed with the patient, case hardener, house staff, and pharmac ist. Mulugeta Valencia DO Date: 11/23/2020 Internal Medicine, Hospitalist [phone] * Jazmin Woodruff RT - 11/21/2020 10:14 AM CDT RT Exercise Oximetry Note Name: Camila Caldwell : 1955 Age: 64 y.o. Admission Date: 11/17/2020 LOS: 4 days Date performed:11/21/2020 Time performed: 10:00 Time walked: 6 minutes At Rest While Awake Results Room air at rest while awake: SpO2 = 94% Oxygen dose required at rest while awake: 0 lpm with resulting SpO2 94% With Exercise Results: Room air SpO2 with exercise, if needed: 91 Oxygen required with exercise: 0 lpm with resulting SpO2 91% This patient was tested on a continuous Comments: PT did not require oxygen with exercise Therapist: RT Anita * Jayda Barksdale OT - 11/21/2020 9:20 AM CDT OCCUPATIONAL THERAPY PROGRESS NOTE Name: Camila Caldwell : 1955 Age: 64 y.o. Admission Date: 11/17/2020 LOS: 4 days Mobility Patient Turn/Position: Chair Progressive Mobility Level: Walk in room Distance Walked (feet): 15 ft Level of Assistance: Stand by assistance Assistive Device: None Time Tolerated: 11-30 minutes Activity Limited By: Weakness;Fatigue Subjective Pertinent Dx per Physician: Camila Caldwell is a 64 y.o. female with PMh signific ant for CHF, CAD s/p stenting, COPD, DM, HTN, HLD, ?chronic pain who presented t o OSH after fall and altered level of consciousness. She was quite hypoxic requi ring BVM on arrival. She was subsequently intubated. 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) ADL's Where Assessed: Edge of Bed;Chair;In Bathroom Grooming Assist: Stand By Assist(standing at the sink) Grooming Deficits: Wash/Dry Face;Brushing Hair;Teeth Care LE Dressing Assist: Moderate Assist(edge of bed) LE Dressing Deficits: Don/Doff L Sock(Pt donned R sock ) Toileting Assist: Stand By Assist(In bathroom) Toileting Deficits: Perineal Hygiene ADL Mobility Bed Mobility: Supine to Sit: Standby assist Transfer Type: Sit to stand Transfer: Assistance Level: From;Bed;Standby assist Transfer: Assistive Device: None Transfer: Type of Assistance: For safety considerations Other Transfer Type: Sit to/from stand Other Transfer: Assistance Level: Toilet;Standby assist;To/from Other Transfer: Assistive Device: None Other Transfer: Type of Assistance: For safety considerations End of Activity Status: Up in chair;Instructed patient to request assist with mo bility;Instructed patient to use call light Sitting Balance: Independent Standing Balance: Standby assist Gait Distance: 15 feet Gait: Assistance Level: Standby assist;Management of lines Gait: Assistive Device: None Activity Tolerance Endurance: 2/5 Tolerates 10-20 Minutes Exercise w/Multiple Rests Cognition Overall Cognitive Status: WNL Social Interaction: WFL Adequate to Solve Routine Tasks Problem Solving: WFL Adequate to Solve Routine Problems Attention: Awake/Alert Assessment Assessment: Decreased Endurance;Decreased High-Level ADLs Prognosis: Good Goal Formulation: Patient AM-PAC 6 Clicks Daily Activity Inpatient Putting on and taking off regular lower body clothes?: A Little Bathing (Including washing, rinsing, drying): A Little Toileting, which includes using toilet, bedpan, or urinal: None Putting on and taking off regular upper body clothing: None Taking care of personal grooming such as brushing teeth: None Eating meals?: None Daily Activity Raw Score: 22 Standardized (t-scale) score: 47.1 CMS 0-100% Score: 25.8 CMS G Code Modifier: CJ Plan OT Frequency: 1-2x/week OT Plan for Next Visit: Mobility and ADLs for endurance ADL Goals Patient Will Perform All ADL's: w/ Stand By Assist Functional Transfer Goals Pt Will Perform All Functional Transfers: w/ Stand By Assist OT Discharge Recommendations Recommendation: Home with intermittent supervision/assistance Patient Currently Requires Physical Assist With: Meal preparation;All home funct ioning ADLs Therapist: JUAN FRANCISCO Davison/Eliseo [phone] Date: 11/21/2020 * Corie Jean RN - 11/20/2020 10:09 PM CDT 11/20/202003 Pulmonary Sputum Color Blood-tinged Patient Problem called about: (document change in assessment or concern): Ms Giuliano coe was coughing up blood tinged sputum (small amount). VSS. Recently extubate d. I sent the provider a FYI notification and asked if I should hold her eliquis . Time MD/TOUR SALES REPRESENTATIVE Notified: 2009 MD/TOUR SALES REPRESENTATIVE Name: Dr Shabbir Westbrook MD MD/TOUR SALES REPRESENTATIVE Response: Monitor; added new medications (see orders/MAR), and to adminis ter eliquis as scheduled. * Sujey Stanton RD - 11/20/2020 1:23 PM CDT CLINICAL NUTRITION Clinical Nutrition Follow-Up Assessment Name: Camila Caldwell : 1955 Age: 64 y.o. Admission Date: 11/17/2020 LOS: 3 days Recommendation: Agree with DM diet/consistent carb meals 3x daily. Continue vitamin D supplement s. Comments: 64 yo F with hx including HF, CAD s/ stenting, COPD, DM, HTN, and HLD, who prese nted to OSH after fall and altered level of consciousness. Patient was in normal state of health when she went to sleep 11/16, was found AM 11/17 by family. Requi red intubation at OSH then transferred for further care. Found to have MSSA PNA and started on abx. Patient was started on EN 11/17 PM (Peptamen Intense VHP) and tolerated titration up to goal rate 40ml/hr (hypocaloric feeds) prior to being held 11/18 with successful extubation. Was transferred to floor overnight & is on 4L NC at time of visit midday. Patient reports to following a routine of ~2 meals per day (breakfast midmorning while at work and dinners at home). Denies any n/v/d/c, but endorses reflux/heartburn. Says she watches her starch intake and tries to keep meals baked not fried. Reports to being ~201# in clinic short ly before acute issues leading to admission (current weight listed at 220#). Say s she ate a good breakfast this morning & was ready for lunch during visit. Nutrition Assessment of Patient: Admit Weight: 99.4 kg(11/17 bed scale); Weight Change Since Admit: -2L net I/Os BMI (Calculated): 34.29; BMI Categories Adult: Obesity Class I: 30-34.9 Pertinent Allergies/Intolerances: none noted Pertinent Labs: reviewed; Pertinent Meds: reviewed; Unintentional Weight Loss: ( no) Oral Diet Order: Diabetic [id number] Kcal/day (60 g carb/meal, 30 g carb/HS snack ); Current Oral Intake: Marginally Adequate Estimated Calorie Needs: 1590-1800kcal (22-25kcal/kg desired wt) Estimated Protein Needs: 87-100g (1.2-1.4g/kg desired wt) Malnutrition Assessment: Does not meet criteria; Nutrition Focused Physical Assessment: Edema: No; Severity: Mild; Location: Generalized Pressure Injury: none noted Comment: BM 11/19, no n/v, abdomen soft/non-distended per RN Nutrition Diagnosis: Inadequate protein-energy intake Etiology: syncope/resp failure with breif intubation need Signs & Symptoms: diet recall/recent extubation Intervention / Plan: Updated estimated kcal/pro needs Provided brief diet counseling/diet review (verbal); patient voiced understandin g of DM diet Will continue to monitor PO intakes for tolerance, adequacy, appropriateness & will adjust nutrition recs prn. Goals: Initiate nutrition Time Frame: Within _ hours(within 12 hours of intubation, if adequately stable) Status: Met;No longer appropriate;New goal established(11/17) Patient to consume >75% of meals Time Frame: Throughout stay Sujey Stanton RD, LD, CNSC Available on [facility] | Office: [phone] * Jayda Barksdale OT - 11/20/2020 1:16 PM CDT OCCUPATIONAL THERAPY PROGRESS NOTE Name: Camila Caldwell : 1955 Age: 64 y.o. Admission Date: 11/17/2020 LOS: 3 days Mobility Patient Turn/Position: Chair Progressive Mobility Level: Walk in room Distance Walked (feet): 15 ft Level of Assistance: Assist X1 Assistive Device: None Time Tolerated: 0-10 minutes Activity Limited By: Weakness;Fatigue Subjective Pertinent Dx per Physician: Camila Caldwell is a 64 y.o. female with PMh signific ant for CHF, CAD s/p stenting, COPD, DM, HTN, HLD, ?chronic pain who presented t o OSH after fall and altered level of consciousness. She was quite hypoxic requi ring BVM on arrival. She was subsequently intubated. 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) ADL's Where Assessed: Edge of Bed;Chair;In Bathroom Grooming Assist: Stand By Assist(standing at the sink) Grooming Deficits: Wash/Dry Face;Brushing Hair;Teeth Care Toileting Assist: Stand By Assist(In bathroom) Toileting Deficits: Perineal Hygiene ADL Mobility Bed Mobility: Supine to Sit: Standby assist Transfer Type: Sit to stand Transfer: Assistance Level: From;Bed;Standby assist Transfer: Assistive Device: None Transfer: Type of Assistance: For safety considerations Other Transfer Type: Sit to/from stand Other Transfer: Assistance Level: To;Toilet;Standby assist Other Transfer: Assistive Device: None Other Transfer: Type of Assistance: For balance;For safety considerations;For st rength deficit End of Activity Status: Up in chair;Instructed patient to request assist with mo bility;Instructed patient to use call light Sitting Balance: Independent Standing Balance: Standby assist Gait Distance: 15 feet Gait: Assistance Level: Minimal assist;Safety considerations(contact guard angella tanmagdiel) Activity Tolerance Endurance: 2/5 Tolerates 10-20 Minutes Exercise w/Multiple Rests Cognition Overall Cognitive Status: WNL Social Interaction: WFL Adequate to Solve Routine Tasks Problem Solving: WFL Adequate to Solve Routine Problems Attention: Awake/Alert Assessment Assessment: Decreased ADL Status;Decreased Endurance;Decreased Self-Care Trans;D ecreased High-Level ADLs Prognosis: Good Goal Formulation: Patient AM-PAC 6 Clicks Daily Activity Inpatient Putting on and taking off regular lower body clothes?: A Little Bathing (Including washing, rinsing, drying): A Little Toileting, which includes using toilet, bedpan, or urinal: None Putting on and taking off regular upper body clothing: None Taking care of personal grooming such as brushing teeth: None Eating meals?: None Daily Activity Raw Score: 22 Standardized (t-scale) score: 47.1 CMS 0-100% Score: 25.8 CMS G Code Modifier: CJ Plan OT Frequency: 5x/week OT Plan for Next Visit: Mobility and ADLs for endurance ADL Goals Patient Will Perform All ADL's: w/ Stand By Assist Functional Transfer Goals Pt Will Perform All Functional Transfers: w/ Stand By Assist OT Discharge Recommendations Recommendation: Home with intermittent supervision/assistance Patient Currently Requires Physical Assist With: Meal preparation;All home funct ioning ADLs Patient Currently Requires Equipment: Bath/shower chair Therapist: ERIK Davison [phone] Date: 11/20/2020 * Macy Smith MD - 11/20/2020 7:12 AM CDT General Progress Note Name: Camila Caldwell Today's Date: 11/20/2020 Admission Date: 11/17/2020 LOS: 3 days Assessment/Plan: Principal Problem: Acute respiratory failure with hypoxia and hypercapnia (HCC) Active Problems: HTN (hypertension) DM (diabetes mellitus) (HCC) CAD (coronary artery disease) CHF (congestive heart failure) (HCC) COPD (chronic obstructive pulmonary disease) (HCC) Metabolic acidosis A-fib ([facility]) Camila Caldwellis a 64 y.o.femalewith PMH significant for CHF, CAD s/p sten ting, COPD, DM, HTN, HLD,chronic pain who presented to OSH after fall and alte red level of consciousness. Patient was in normal state of health when she went to sleep 11/16, was found AM 11/17 by family. Required intubation at OSH then sol sferred to [facility] ICU. Found to have MSSA PNA and started on ABX. Successfully e xtubated 11/18 and transferred to floor. 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 Valencia Nutrition: Dietitian Documentation Edema: Yes Mild Generalized Wound: No Wound Consult Macy Smith MD Subjective Camila Caldwell is a 64 y.o. female. Patient reports chest soreness from frequent coughing. She has some mild generalized weakness from laying in bed. She denies fevers/chills and volume overload. She does not remember the details of her fal ls at home and does not remember being admitted. At home she uses 2 lpm suppleme ntal O2 at night only. She hopes to discharge to home soon. Medications Scheduled Meds:amiodarone (CORDARONE) tablet 200 mg, 200 mg, Oral, QDAY apixaban (ELIQUIS) tablet 5 mg, 5 mg, Oral, BID atorvastatin (LIPITOR) tablet 80 mg, 80 mg, Oral, QDAY bumetanide (BUMEX) tablet 2 mg, 2 mg, Oral, BID ceFAZolin (ANCEF) IVP 2 g, 2 g, Intravenous, Q8H* cholecalciferol (VITAMIN D-3) tablet 1,000 Units, 1,000 Units, Oral, QDAY clopiDOGrel (PLAVIX) tablet 75 mg, 75 mg, Oral, QDAY diclofenac sodium (VOLTAREN) 1 % topical gel 2 g, 2 g, Topical, BID [START ON 11/21/2020] doxycycline hyclate (VIBRAMYCIN) tablet 100 mg, 100 mg, Ora l, Q12H* duloxetine DR (CYMBALTA) capsule 60 mg, 60 mg, Oral, QDAY fluticasone propionate (FLONASE) nasal spray 2 spray, 2 spray, Each Nostril, BID fluticasone propionate (FLOVENT HFA) 44 mcg/actuation inhaler 1 puff, 1 puff, In halation, BID And umeclidinium-vilanteroL (ANORO ELLIPTA) 62.5-25 mcg/actuation inhaler 1 puff, 1 puff, Inhalation, QDAY insulin aspart U-100 (NOVOLOG FLEXPEN) injection PEN 0-24 Units, 0-24 Units, Sub cutaneous, ACHS (22) insulin glargine (LANTUS SOLOSTAR) injection PEN 20 Units, 20 Units, Subcutaneou s, BID magnesium sulfate 1 g/D5W 100 mL IVPB, 1 g, Intravenous, Q4H* polyethylene glycol 3350 (MIRALAX) packet 17 g, 1 packet, Oral, QDAY pregabalin (LYRICA) capsule 50 mg, 50 mg, Oral, TID rOPINIRole (REQUIP) tablet 1 mg, 1 mg, Oral, TID vitamins, multiple tablet 1 tablet, 1 tablet, Oral, QDAY(08) Continuous Infusions: PRN and Respiratory Meds:acetaminophen Q6H PRN, albuterol-ipratropium Q4H PRN, b isacodyL QDAY PRN, camphor/menthol TID PRN, cyclobenzaprine TID PRN, docusate QD AY PRN, ondansetron Q8H PRN, pancrelipase 20,880 Units/sodium bicarbonate 650 mg (KU CLOG DESTROYER) PRN (Mold Washer from Rx) Review of Systems: 14 pt ROS negative unless mentioned in subjective. Objective: Vital Signs: Last Filed Vital Signs: 24 Robbi r Range BP: 132/72 (11/21 831) Temp: 36.3 C (97.4 F) (11/21 735) Pulse: 79 (11/21 735) Respirations: 20 PER MINUTE (11/21 735) SpO2: 100 % (11/21 735) SpO2 Pulse: 84 (11/20 1999) BP: (98-151)/(36-77) Temp: [36.3 C (97.4 F)-37.2 C (98.9 F)] Pulse: [77-95] Respirations: [15 PER MINUTE-27 PER MINUTE] SpO2: [91 %-100 %] Intensity Pain Scale (Self Report): 4 (11/20/20 0000) Vitals: 11/17/20 1528 11/19/20 0700 11/20/20 0219 Weight: 99.3 kg (219 lb) 100.3 kg (221 lb 1.9 oz) 100 kg (220 lb 7.4 oz) Intake/Output Summary: (Last 24 hours) Intake/Output Summary (Last 24 hours) at 11/20/2020 1053 Last data filed at 11/20/2020 0351 Gross per 24 hour Intake 1306.3 ml Output 972 ml Net 334.3 ml Stool Occurrence: 1 Physical Exam Constitutional: She is oriented to person, place, and time and well-developed, w ell-nourished, and in no distress. HENT: Head: Normocephalic and atraumatic. Mouth/Throat: Oropharynx is clear and moist. Eyes: EOM are normal. No scleral icterus. Neck: No JVD present. Cardiovascular: Normal rate and regular rhythm. No murmur heard. Pulmonary/Chest: Effort normal. Coarse breath sounds bilaterally Abdominal: Soft. Bowel sounds are normal. She exhibits no distension. There is n o abdominal tenderness. Musculoskeletal: General: No edema. Normal range of motion. Cervical back: Normal range of motion. Neurological: She is alert and oriented to person, place, and time. Skin: Skin is warm and dry. Psychiatric: Affect and judgment normal. Lab Review Pertinent labs reviewed Point of Care Testing (Last 24 hours) Glucose: (!) 136 (11/20/20 0227) POC Glucose (Download): (!) 129 (11/20/20 08) Radiology and other Diagnostics Review: Pertinent radiology reviewed. Macy Smith MD Associated attestation - Elder Valencia DO - 11/20/2020 10:39 PM CDT ATTESTATION I personally performed the fernandes portions of the E/M visit, discussed case with e resident and concur with the documentation of history, physical exam, assessme nt, and treatment plan unless otherwise noted. I spent the below noted time prov iding and personally directing care that included: systems and physical examinat ion, review of laboratory data, review of imaging studies, review of medications , fluid and electrolyte management, hemodynamic monitoring, optimization of bloo d pressure, and coordination of care with consulting services. Care plan was discussed with the patient, case hardener, house staff, and pharmac ist. Mulugeta Valencia DO Date: 11/20/2020 Internal Medicine, Hospitalist [phone] * Corie Jean RN - 11/20/2020 3:50 AM CDT Patient arrived on unit via wheelchair accompanied by RN. Patient transferred to the bed without assistance. Assessment completed, refer to flowsheet for detail s. Orders released, reviewed, and implemented as appropriate. Oriented to [facility], call light within reach. Plan of care reviewed. Will continue to monito r and assess. * Jazmin Woodruff RT - 11/19/2020 11:35 AM CDT RT Adult Assessment Note NAME:Camila Caldwell :1955 A GE: 64 y.o. ADMISSION DATE: 11/17/2020 DAYS ADMITTED: LOS: 2 days RT Treatment Plan: Protocol Plan: Medications Albuterol: Nebulizer PRN Flovent (Home regimen only): BID Anoro (Home regimen only): Qday Protocol Plan: Procedures Oxygen/Humidity: O2 to keep SpO2 > 92%, if not on any RT modality, D/C protocol if greater than 24 hours on room air SpO2: BID & PRN Additional Comments: Impressions of the patient: stable, titrating oxygen as tolerated Vital Signs: Pulse: 83 RR: 22 SpO2: 98% O2 Device: Nasal cannula Liter Flow: 3 lpm O2%: Breath Sounds: clear Respiratory Effort: nonlabored * Joy Peterson MD - 11/19/2020 11:28 AM CDT ATTESTATION I personally interviewed and examined the patient. I have reviewed the history, physical, impression and plan outlined by the Nurse Practitioner. History: Ms. Caldwell is doing better. She has tolerated extubation. She has MSSA in spu les. Review of Systems: A full 14 point review of systems was performed and is as above or is unremarkab le. Vitals: 11/19/20 0859 BP: Pulse: Temp: 37 C (98.6 F) SpO2: Physical Exam: GENERAL: Alert and Pleasant, No Distress HEENT: PERRL, EOMI NECK: No Cervical or Supraclavicular Adenopathy, No Thyromegaly CVS: Regular Rate and Rhythm LUNGS: CTAB, No Wheezes ABDOMEN: Soft, Nontender, No Hepatosplenomegaly EXTREMITIES: No edema. SKIN: No rashes. No ulcers. NEURO: Grossly normal Assessment: Principal Problem: Acute respiratory failure with hypoxia and hypercapnia (HCC) Active Problems: HTN (hypertension) DM (diabetes mellitus) (HCC) CAD (coronary artery disease) CHF (congestive heart failure) (HCC) COPD (chronic obstructive pulmonary disease) (HCC) Metabolic acidosis A-fib (HCC) Plan: - Keep net negative as tolerated - 5 days doxy, 7 days ceftriaxone - Glucose control - Speech evaluation - OK to TTF * Seun Verde PT - 11/19/2020 10:50 AM CDT PHYSICAL THERAPY ASSESSMENT Name: Camila Caldwell : 1955 Age: 64 y.o. Admission Date: 11/17/2020 LOS: 2 days Mobility Progressive Mobility Level: Walk in room Distance Walked (feet): 25 ft Level of Assistance: Assist X1 Assistive Device: None Time Tolerated: 11-30 minutes Activity Limited By: Weakness;Fatigue Subjective Significant hospital events: 64 y.o. female with PMh significant for CHF, CAD s/ p stenting, COPD, DM, HTN, HLD, ?chronic pain who presented to OSH after fall an d altered level of consciousness. She was quite hypoxic requiring BVM on arrival . She was subsequently intubated. Mental / Cognitive Status: Alert;Oriented;Cooperative;Follows Commands Pain: Patient has no complaint of pain Comments: 3L 02 NC Ambulation Assist: Independent Mobility in Community without Device Patient Owned Equipment: None Home Situation: Lives with Family Type of Home: House Entry Stairs: 1-2 Stairs In-Home Stairs: No Stairs Comments: Patient was working full-time prior to admit. She remembers trying to get up to the bathroom with her family and that is the last thing she remembers. ROM ROM Method: Active LE ROM: Bilateral;Hip;Knee;Ankle;WFL Strength Overall Strength: Generalized Weakness;No Focal Deficits Noted;WFL Bed Mobility/Transfer Bed Mobility: Sit to Supine: Standby Assist;Bed Flat Transfer Type: Sit to Stand Transfer: Assistance Level: From;Bed;Standby Assist Transfer: Assistive Device: None End Of Activity Status: In Bed;Nursing Notified;Instructed Patient to Request As sist with Mobility;Instructed Patient to Use Call Light Balance Standing Balance: Static Standing Balance;Dynamic Standing Balance;No UE support ;Minimal Assist Gait Gait Distance: 25 feet Gait: Assistance Level: Minimal Assist;Management of Lines Gait: Assistive Device: None Activity Limited By: Complaint of Fatigue;Weakness Education Persons Educated: Patient Patient Barriers To Learning: None Noted Teaching Methods: Verbal Instruction Patient Response: Verbalized Understanding Topics: Plan/Goals of PT Interventions;Mobility Progression;Up with Assist Only; Importance of Increasing Activity;Ambulate With Nursing;Recommend Continued Ther apy;Therapy Schedule Assessment/Progress Impaired Mobility Due To: Decreased Strength;Impaired Balance;Decreased Activity Tolerance Assessment/Progress: Should Improve w/ Continued PT;Expect Good Progress AM-PAC 6 Clicks Basic Mobility Inpatient Turning from your back to your side while in a flat bed without using bed rails: A Little Moving from lying on your back to sitting on the side of a flatbed without using bedrails : A Little Moving to and from a bed to a chair (including a wheelchair): A Little Standing up from a chair using your arms (e.g. wheelchair, or bedside chair): A Little To walk in hospital room: A Little Climbing 3-5 steps with a railing: A Little Raw Score: 18 Standardized (T-scale) Score: 41.05 Basic Mobility CMS 0-100%: 40.47 CMS G Code Modifier for Basic Mobility: CK Goals Goal Formulation: With Patient Time For Goal Achievement: 5 days Patient Will Go Supine To/From Sit: Independently Patient Will Ambulate: Greater than 200 Feet, Independently Patient Will Go Up / Down Stairs: 1-2 Stairs, w/ Stand By Assist Plan Treatment Interventions: Mobility Training;Strengthening;Balance Activities;Endu el Training Plan Frequency: 5 Days per Week PT Plan for Next Visit: Ambulate as tolerated; up to chair. PT Discharge Recommendations Recommendation: Currently patient requires inpatient level of care. However, typ ical progression for patient condition would anticipate home with assistance at time of discharge. Anticipate progressing mobility well in next 24-48 hours. Therapist Seun Verde, PT Date 11/19/2020 * Jayda Barksdale OT - 11/19/2020 9:28 AM CDT OCCUPATIONAL THERAPY ASSESSMENT NOTE Name: Camila Caldwell : 1955 Age: 64 y.o. Admission Date: 11/17/2020 LOS: 2 days Mobility Patient Turn/Position: Chair Progressive Mobility Level: Active transfer to chair Level of Assistance: Assist X1 Assistive Device: None Time Tolerated: 0-10 minutes Activity Limited By: Weakness;Fatigue Subjective Pertinent Dx per Physician: Camila Caldwell is a 64 y.o. female with PMh signific ant for CHF, CAD s/p stenting, COPD, DM, HTN, HLD, ?chronic pain who presented t o OSH after fall and altered level of consciousness. She was quite hypoxic requi ring BVM on arrival. She was subsequently intubated. 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) ADL's Where Assessed: Edge of Bed;Chair LE Dressing Assist: Moderate Assist LE Dressing Deficits: Don/Doff L Sock Toileting Assist: Total Assist(payton) ADL Mobility Bed Mobility: Supine to Sit: Standby assist Transfer Type: Sit to stand Transfer: Assistance Level: From;Bed;Minimal assist(contact guard assistance) Transfer: Assistive Device: None Transfer: Type of Assistance: For balance;For safety considerations;For strength deficit Other Transfer Type: Stand pivot Other Transfer: Assistance Level: To;Bedside chair;Minimal assist Other Transfer: Assistive Device: None Other Transfer: Type of Assistance: For balance;For safety considerations;For st rength deficit End of Activity Status: Up in chair;Instructed patient to request assist with mo bility;Instructed patient to use call light Sitting Balance: Independent Activity Tolerance Endurance: 1/5 Tolerates <10 Minutes Exercises, No Significant Change in Vital Signs Cognition Overall Cognitive Status: WNL Social Interaction: WFL Adequate to Solve Routine Tasks Problem Solving: WFL Adequate to Solve Routine Problems Attention: Awake/Alert Education Persons Educated: Patient Teaching Methods: Verbal Instruction Patient Response: Verbalized Understanding Topics: Role of OT, Goals for Therapy Goal Formulation: With Patient Assessment Assessment: Decreased ADL Status;Decreased Endurance;Decreased Self-Care Trans;D ecreased High-Level ADLs Prognosis: Good Goal Formulation: Patient AM-PAC 6 Clicks Daily Activity Inpatient Putting on and taking off regular lower body clothes?: A Lot Bathing (Including washing, rinsing, drying): A Little Toileting, which includes using toilet, bedpan, or urinal: Total Putting on and taking off regular upper body clothing: None Taking care of personal grooming such as brushing teeth: None Eating meals?: None Daily Activity Raw Score: 18 Standardized (t-scale) score: 38.66 CMS 0-100% Score: 46.65 CMS G Code Modifier: CK Plan OT Frequency: 5x/week OT Plan for Next Visit: standing at the sink for grooming ADL Goals Patient Will Perform All ADL's: w/ Stand By Assist Functional Transfer Goals Pt Will Perform All Functional Transfers: w/ Stand By Assist OT Discharge Recommendations Recommendation: Currently patient requires inpatient level of care. However, [facility] for [facility] condition would anticipate home with assistance at time of discharge. Patient Currently Requires Physical Assist With: All home functioning ADLs;All m obility;All personal care ADLs Therapist: JUAN FRANCISCO Davison/Eliseo [phone] Date: 11/19/2020 * Jason Garcia MA,CCC-GROUNDS CARETAKER - 11/19/2020 8:30 AM CDT SPEECH-LANGUAGE PATHOLOGY CLINICAL SWALLOW ASSESSMENT Name: Camila Caldwell : 1955 Age: 64 y.o. Admission Date: 11/17/2020 LOS: 2 days Evaluation Summary Clinical swallow evaluation completed. Clinical Impression: Normal oral pharyngeal swallow Anticipated Imprrovement: Pt presents with functional oropharyngeal swallow at t his time. MIldly hoarse vocal quality noted likely 2/2 to recent intubation/extu bation, however pt reports vocal quality has improved since yesterday. Dry cough noted throughout evaluation, however cough was noted prior to any PO intake and not immediately following PO intake indicating cough is likely not related to PO intake at this time. Recommendations Swallow Recommendations PO: Regular, Thin liquids Medications: As tolerated Ice Chip Trials: Unlimited Positioning: Upright 90 degrees or chair mode Oral Hygiene: 3 times per day PO Presentation Presentations: Therapist Fed, Patient Fed Self Thin Liquid: Cup, Consecutive Swallows, Straw Other Consistencies: Mechanical soft solids, Puree, Regular solids Clinical Interpretation of Oral Stage Withdraw Bolus: Within functional limits Masticate Bolus: Poor dentition Transfer Bolus: Within functional limits Anterior Bolus Spillage: None Oral Residue: None Oral Stage Summary*: Pt presents with grossly intact oral phase of swallowing. P t demonstrated prolonged mastication 2/2 to missing teeth, however reports she e ats a regular diet at home. Clinical Interpretation of Pharyngeal Stage Swallow Initiation: Timely Laryngeal Elevation: Suspected to be adequate Signs / Symptoms Of Aspiration: No Pharyngeal Stage Summary*: Pt presents with functional pharyngeal phase of swall ow. Adequate/timely laryngeal elevation noted. No overt s/s of aspiration observ edw ith any consistency tested. Oral [facility] Exam Oral [facility] WFL*: No Dentition: Edentulous Oral [facility] Exam Summary*: Pt presents with grossly intact oral mechanism evaluati on, however is edentulous and does not own dentures. Attempted Swallow Strategies Objective Relevant Med Background: HISTORY OF PRESENT ILLNESS: Camila Caldwell is a 64 y.o. female with PMh significant for CHF, CAD s/p stenting, COPD, DM, HTN, HLD, ?chr onic pain who presented to OSH after fall and altered level of consciousness. Sh e was quite hypoxic requiring BVM on arrival. She was subsequently intubated. 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 She returned home, ate dinner and went to bed. She was found by family early this AM. No c/o any change in sx prior to this event per family, th ough pt unable to corroborate 2/2 intubation and sedation Handedness: Right Hearing: WFL Psychosocial Status: Willing and Cooperative to Participate Persons Present: None CHEST SINGLE VIEW INDICATION: respiratory failure. TECHNIQUE: Portable AP semiupright view of the chest was obtained COMPARISON STUDY: Comparison is made to an examination of 04/16/2011 IMPRESSION Interval development of cardiomegaly with pulmonary vascular congestion and evidence of interstitial or alveolar edema. The findings are consistent with congestive failure or volume overload. The possibility of underlying pneumonia contributing to the alveolar opacities in the lower lobes is also a consideration. Subjective Pain: Patient has no complaint of pain Nutrition Nutrition Prior To Hospitalization: Oral, Regular, Thin Liquids Current Form Of Nutrition: NPO Education Persons Educated: Patient Barriers To Learning: None Noted Teaching Methods: Verbal Topics: Dysphagia Patient Response: Verbalized Understanding Goal Formulation: With Patient Assessment/Prognosis Plan: Patient functioning at baseline - No further GROUNDS CARETAKER therapy indicated at this time Prognosis: Good NOMS Dysphagia Ratin-Normal -Ability to eat indep not limited by swallow fun ction. Swallow safe/efficient for all consistencies. Compensatory strategies eff ectively used when needed. Therapist:Jason Garcia MA,CCC-GROUNDS CARETAKER Voalte: [id number] Date:11/19/2020 * ScottGayla APRN-TOUR SALES REPRESENTATIVE - 11/19/2020 6:30 AM CDT Critical Care Admission History and Physical Assessment Name: Camila Caldwell Admission Date: 11/17/2020 Principal Problem: Acute respiratory failure with hypoxia and hypercapnia ([facility]) Active Problems: HTN (hypertension) DM (diabetes mellitus) (HCC) CAD (coronary artery disease) CHF (congestive heart failure) (HCC) COPD (chronic obstructive pulmonary disease) ([facility]) Metabolic acidosis A-fib ([facility]) Assessment and Plan NEURO Encephalopathy Sedation Fall - reportedly fell at home, CT head at OSH with no acute abnormality - ammonia 54 - UDS + for benzo Plan - improved - monitor - PT/OT 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 at lower dose, prn flexeril, diclofenac gel, Cymbalta - Hold meloxicam PULM Respiratory failure - hypoxia and hypercapnia - improving - Intubated at OSH after found less than responsive; sat 60s with BVM; 7.07/87/2 83 immediately post intubation; repeat 7.33/56/146 on 100% - Imaging with bilat opacities - 2/2 PNA + CHF - extubated to NC 11/18, now on 4-5L NC Plan - ID as below - restart LICENSED ELECTRICIAN bumex today, monitor I/O for goal net neg 1-2L, will re-dose lasix if needed - Bronch 11/17 - f/u studies CV Hx CAD s/p Stenting - per family last in 06/2020 Hx HTN Hx Afib Shock - improved - LICENSED ELECTRICIAN meds listed are variable based on source but PCP provided list 11/18 (doesn 't include some recently picked up at [facility]) - Most up to date list that was obtained by pharmacy from [facility] includes bumex 2mg BID, Entresto, lipitor, ASA 325, plavix, Imdur; did not include Apixiban but pt reports she still takes this - Currently HR 70-110s, SBP 90-110 - Transient pressor need on admit, weaned off 11/18; exacerbated by sedation - previous echo read in 06/2020 with normal EF, mild enlargement, some moderate A S - echo completed 11/17 - overall stable from prior reports Plan - Diuresis as above - ID as below - cont plavix, asa 81mg, restarted apixiban - restart LICENSED ELECTRICIAN amio, bumex as above - holding antihypertensives GI - NPO, GROUNDS CARETAKER consulted for swallow - PPI LICENSED ELECTRICIAN - cont RENAL Metabolic acidosis - improved - Cr. 1.27 at OSH (unknown baseline), KUMC 0.94, bicarb 26, AG 14, LA 1.6 - LA 4.6 at OSH Plan - Trend labs - [facility] for accurate IO > can d/c today ENDO DM - LICENSED ELECTRICIAN meds unclear, family reports insulin use but not sure dose or frequency; m ed list from [facility] includes semaglutide, sitagliptin - Glucose 608 at OSH; 500s at [facility] - family reports this is not abnormal for pt - A1C 10.6 Plan - insulin gtt for now - Restart long acting 20U (55 LICENSED ELECTRICIAN according to PCP) this AM and adjust through t when she is taking PO ID PNA Leukocytosis - WBC 16.4 at OSH with infiltrates reported on imaging - RVP, COVID reportedly neg LICENSED ELECTRICIAN - Received rocephin and vanc at OSH - bronch completed 11/17, gram stain + for GPC with staph - strep pneumo, legionella neg - RVP neg from bronch - MRSA PCR neg Plan - Blood, sputum cx - follow to final - UA with reflex - Cont ceftriaxone, doxy SKIN Rash vs moisture breakdown - groin with some redness, papular appearing rash - looks better today with jeanne al barrier cream - monitor; antifungal barrier cream Code status: Disposition: floor Gayla Chavez APRN Pulmonary Critical Care Pager: [phone] M2 team pager (2nd call/nights): [phone] Subjective: Camila Caldwell is a 64 y.o. who is resting in bed. Breathing feels almost back t o normal. ROS: A comprehensive review of systems was negative except for: hunger Objective: Medications: Scheduled Meds:albuterol-ipratropium (DUONEB) nebulizer solution 3 mL, 3 mL, Inh alation, Q4H & PRN amiodarone (CORDARONE) tablet 200 mg, 200 mg, Oral, QDAY apixaban (ELIQUIS) tablet 5 mg, 5 mg, Oral, BID aspirin EC tablet 81 mg, 81 mg, Oral, QDAY atorvastatin (LIPITOR) tablet 80 mg, 80 mg, Oral, QDAY bumetanide (BUMEX) tablet 2 mg, 2 mg, Oral, BID cefTRIAXone (ROCEPHIN) IVP 1 g, 1 g, Intravenous, Q24H* chlorhexidine gluconate (PERIDEX) 0.12 % solution 15 mL, 15 mL, SEE ADMIN INSTRU CTIONS, BID(8-) cholecalciferol (VITAMIN D-3) tablet 1,000 Units, 1,000 Units, Oral, QDAY clopiDOGrel (PLAVIX) tablet 75 mg, 75 mg, Oral, QDAY diclofenac sodium (VOLTAREN) 1 % topical gel 2 g, 2 g, Topical, BID doxycycline (VIBRAMYCIN) 100 mg in dextrose 5% (D5W) 100 mL IVPB, 100 mg, Intrav enous, Q12H* duloxetine DR (CYMBALTA) capsule 60 mg, 60 mg, Oral, QDAY fluticasone propionate (FLONASE) nasal spray 2 spray, 2 spray, Each Nostril, BID fluticasone propionate (FLOVENT HFA) 44 mcg/actuation inhaler 1 puff, 1 puff, In halation, BID And umeclidinium-vilanteroL (ANORO ELLIPTA) 62.5-25 mcg/actuation inhaler 1 puff, 1 puff, Inhalation, QDAY insulin glargine (LANTUS SOLOSTAR) injection PEN 20 Units, 20 Units, Subcutaneou s, QDAY magnesium sulfate 1 g/D5W 100 mL IVPB, 1 g, Intravenous, Q1H Followed by magnesium sulfate 1 g/D5W 100 mL IVPB, 1 g, Intravenous, Q1H pantoprazole (PROTONIX) injection 40 mg, 40 mg, Intravenous, BID(11-) polyethylene glycol 3350 (MIRALAX) packet 17 g, 1 packet, Oral, QDAY potassium chloride in water IVPB 10 mEq, 10 mEq, Intravenous, Q2H* Followed by potassium chloride in water IVPB 10 mEq, 10 mEq, Intravenous, Q2H* Followed by potassium chloride in water IVPB 10 mEq, 10 mEq, Intravenous, Q2H* Followed by potassium chloride in water IVPB 10 mEq, 10 mEq, Intravenous, Q2H* Followed by potassium chloride in water IVPB 10 mEq, 10 mEq, Intravenous, Q2H* pregabalin (LYRICA) capsule 50 mg, 50 mg, Oral, TID rOPINIRole (REQUIP) tablet 1 mg, 1 mg, Oral, TID vitamins, multiple tablet 1 tablet, 1 tablet, Oral, QDAY(08) Continuous Infusions: norepinephrine (LEVOPHED) 4 mg/250 mL NS IV drip (std conc)(premade) Stopp ed (11/18/20 0824) PRN and Respiratory Meds:acetaminophen Q6H PRN, bisacodyL QDAY PRN, camphor/ment hol TID PRN, cyclobenzaprine TID PRN, docusate QDAY PRN, nalOXone PRN, ondansetr on Q8H PRN, pancrelipase 20,880 Units/sodium bicarbonate 650 mg ([facility] CLOG DESTROY ER) PRN (Mold Washer from Rx), sucralfate TID before meals PRN Vital Signs: Last Filed Vital Signs: 24 Hour Ra nge BP: 100/58 (11/19 0500) Temp: 37.1 C (98.7 F) (11/19 0400) Pulse: 79 (11/19 0500) Respirations: 18 PER MINUTE (11/19 0500) SpO2: 94 % (11/19 0500) SpO2 Pulse: 79 (11/19 0500) BP: (77-157)/(45-86) Temp: [36.7 C (98 F)-37.2 C (99 F)] Pulse: [71-133] Respirations: [13 PER MINUTE-34 PER MINUTE] SpO2: [89 %-99 %] Intensity Pain Scale (Self Report): 2 (11/19/20 0400) Vitals: 11/17/20 1139 11/17/20 1528 Weight: 99.4 kg (219 lb 2.2 oz) 99.3 kg (219 lb) Intake/Output Summary: (Last 24 hours) Intake/Output Summary (Last 24 hours) at 11/19/2020 0630 Last data filed at 11/19/2020 0400 Gross per 24 hour Intake 1268.34 ml Output 2585 ml Net -1316.66 ml Physical Exam: Physical Exam: General appearance: alert, calm, appropriate Head: Normocephalic Eyes: conjunctivae/corneas clear. PERRL Mouth/throat: Moist mucous membranes, ett Neck: supple, symmetrical, trachea midline Lungs: non labored on NC, diminished Heart: regular rate and rhythm Abdomen: soft, round. Previous surgical scar, well healed except for at the top, some eschar and redness, no drainage Extremities: extremities normal, atraumatic Neurologic: alert, appropriate Peripheral pulses: 2+ and symmetric Cap Refill: <3 sec Skin: Skin color, texture, turgor normal. Groin with red, papular rash is improv ed LABS: Recent Labs 11/17/20 1159 11/18/20 0258 11/18/20 1215 11/19/20 0400 NA 140 145 147 144 K 4.3 3.4* 3.6 3.6 CL 100 105 108 105 CO2 26 27 28 26 GAP 14* 13* 11 13* BUN 18 31* 30* 32* CR 0.94 1.00 0.77 0.75 GLU 516* 269* 137* 154* CA 9.6 9.1 8.4* 8.7 ALBUMIN 4.2 3.6 -- 3.4* MG 1.7 1.6 2.0 1.8 PO4 5.6* 3.7 -- 4.2 HGBA1C 10.6* -- -- -- TSH 1.48 -- -- -- Recent Labs 11/17/20 1159 11/17/20 1537 11/17/20 1953 11/17/20 2200 11/18/20 0258 11/19/20 0400 WBC 18.6* 20.3* -- 20.6* 20.4* 14.5* HGB 13.4 12.8 -- 12.2 11.3* 11.0* HCT 40.4 37.9 -- 35.9* 33.9* 34.2* PLTCT 327 398 -- 356 307 245 INR 1.1 -- -- -- -- -- AST 87* -- -- -- 41* 40 ALT 103* -- -- -- 69* 51 ALKPHOS 133* -- -- -- 97 83 TNI 0.20* 0.27* 0.32* 0.35* 0.27* -- Estimated Creatinine Clearance: 93 mL/min (based on SCr of 0.75 mg/dL). Vitals: 11/17/20 1139 11/17/20 1528 Weight: 99.4 kg (219 lb 2.2 oz) 99.3 kg (219 lb) Recent Labs 11/17/20 1159 11/17/20 1423 PHART 7.24* 7.33* PO2ART 96 101* Radiology and Other Diagnostic Procedures Review: Reviewed T * Joy Peterson MD - 11/18/2020 1:57 PM CDT MICU STAFF NOTE Name: Camila Caldwell Code Status: Full Code Admission Date: 11/17/2020 I have independently seen, personally fully evaluated, and discussed patient wit h the Medical ICU team. I spent 35 minutes (excluding time spent performing or supervising any procedure s and independent of TOUR SALES REPRESENTATIVE review) providing and personally directing critical care services including Systems and physical examination Review of laboratory data Review of telemetry data Review of imaging studies Review of medications Fluid and electrolyte management Coordination of care with consulting services Serial evaluations of respiratory and mental status History: Ms. Caldwell has had some improvement in respiratory status overnight. Bronch is growing gram positive that resemble staph. Off pressors. Review of Systems: Unable to obtain due to patient factors. Vitals: 11/18/20 1336 BP: Pulse: (!) 125 Temp: SpO2: (!) 89% Physical Exam: General: Intubated and sedated Head: Normocephalic, without obvious abnormality, atraumatic Eyes: Conjunctivae/corneas clear. PERRL Throat: Lips, mucosa moist; ETT in place Neck: Supple, symmetrical, trachea midline Lungs: Clear mechanical breath sounds to auscultation bilaterally, no wheezes, non-labored on the vent. Heart: Regular rate and rhythm, S1, S2 normal, no murmur Abdomen: Soft, non-tender. Obese. Bowel sounds normal. Extremities: 1+ edema in BLE Peripheral pulses 2+ and symmetric, all extremities Skin: No rashes Neurologic: Sedated Assessment: The patient is critically ill with the conditions listed below: Principal Problem: Acute respiratory failure with hypoxia and hypercapnia (HCC) Active Problems: HTN (hypertension) DM (diabetes mellitus) (HCC) CAD (coronary artery disease) CHF (congestive heart failure) (HCC) COPD (chronic obstructive pulmonary disease) (HCC) Metabolic acidosis A-fib (HCC) Plan: - Follow up susceptibilities - Continue antibiotics - Wean vent and perform PSV trial in hopes to extubate - Keep net negative as tolerated - Glucose control * Henrry Owens RT - 11/18/2020 1:52 PM CDT Vent Liberation trial: AM trial held to lower PEEP to 5. PM trial: Vt 1250 1300 NIF -43 -47 RSBI 23 21 Pt extubated at the end of the 30min trial per protocol. TOUR SALES REPRESENTATIVE informed. * Jayda Barksdale OT - 11/18/2020 9:53 AM CDT OCCUPATIONAL THERAPY NOTE Name: Camila Caldwell : 1955 Age: 64 y.o. Admission Date: 11/17/2020 LOS: 1 day Per RN patient is currently intubated but moving around well in the bed. RN sandro gonzales no currently mobility needs. Occupational and physical therapy will c ontinue to follow and provide intervention as indicated. Therapist: JUAN FRANCISCO Davison/Eliseo [phone] Date: 11/18/2020 * Gayla Chavez APRN-TOUR SALES REPRESENTATIVE - 11/18/2020 6:56 AM CDT Critical Care Admission History and Physical Assessment Name: Camila Caldwell Admission Date: 11/17/2020 Principal Problem: Acute respiratory failure with hypoxia and hypercapnia (HCC) Active Problems: HTN (hypertension) DM (diabetes mellitus) (HCC) CAD (coronary artery disease) CHF (congestive heart failure) (HCC) COPD (chronic obstructive pulmonary disease) (HCC) Metabolic acidosis A-fib (HCC) Assessment and Plan NEURO Encephalopathy Sedation Fall - reportedly fell at home, CT head at OSH with no acute abnormality - ammonia 54 - UDS + for benzo Plan - stop sedation today with plans to attempt to extubate Chronic pain? - LICENSED ELECTRICIAN with meloxicam, flexeril, Cymbalta - will resume prn flexeril and restart cymbalta when able to take PO PULM Respiratory failure - hypoxia and hypercapnia - Intubated at OSH after found less than responsive; sat 60s with BVM; 7.07/87/2 83 immediately post intubation; repeat 7.33/56/146 on 100% - Imaging with bilat opacities - Ddx includes pna vs heart failure vs DAH on AC vs drug toxicity vs less likely PE with LICENSED ELECTRICIAN AC use - MMV overnight, slowly improving Plan - Wean peep to 5 this AM, trial and plan to extubate later today if she looks go od - ID as below - repeat lasix, f/u I/O for goal net neg 1-2L - Bronch 11/17 - f/u studies CV Hx CAD s/p Stenting - per family last in 06/2020 Hx HTN Hx Afib - LICENSED ELECTRICIAN meds unclear as list is outdated, attempting to verify current meds but in clude various antihypertensives, ? Amio in the past, apixiban - Most up to date list that was obtained by pharmacy from [facility] includes bumex 2mg BID, Entresto, lipitor, ASA 325, plavix, Imdur; did not include Apixiban but pt reports she still takes this - s/p 1L LR at OSH - Currently HR 70s, SBP 80-110s; did drop with increased prop requiring NE - previous echo read in 06/2020 with normal EF, mild enlargement, some moderate A S - echo 11/17 Plan - Diuresis - goal net neg 1-2L as tolerated - BNP, trop - ID as below - cont plavix, asa but drop to 81mg, ppx lovenox GI - NPO, TF with fiberglass roller consult - OGT with some blood tinged output, will monitor closely - PPI LICENSED ELECTRICIAN - cont RENAL Metabolic acidosis - improved - Cr. 1.27 at OSH (unknown baseline), [facility] 0.94, bicarb 26, AG 14, LA 1.6 - LA 4.6 at OSH Plan - Trend labs - [facility] for accurate IO ENDO DM - LICENSED ELECTRICIAN meds unclear, family reports insulin use but not sure dose or frequency; m ed list from [facility] includes semaglutide, sitagliptin - Glucose 608 at OSH; 500s at [facility] - family reports this is not abnormal for pt Plan - insulin gtt - A1C ordered ID PNA Leukocytosis - WBC 16.4 at OSH with infiltrates reported on imaging - RVP, COVID reportedly neg LICENSED ELECTRICIAN - Received rocephin and vanc at OSH - bronch completed 11/17, gram stain + for GPC with staph - strep pneumo, legionella neg - RVP neg from bronch - MRSA PCR neg Plan - Blood, sputum cx - follow to final - UA with reflex - Cont ceftriaxone, doxy SKIN Rash vs moisture breakdown - groin with some redness, papular appearing rash - looks better today with jeanne al barrier cream - monitor; antifungal barrier cream Code status: Disposition: cont ICU 16454 x 1, 97628 x 1 - pt critically ill with above. I spent 85 minutes mena charles critical care services including: reviewing outside records and obtaining history from the patient/family hans riggins performing a physical examination serially reviewing laboratory, telemetry, hemodynamic, oximetry, and respirat ory data reviewing radiographic images reviewing medications managing fluids/electrolytes, antibiotics, ICU prophylaxis, and mechanical ve ntilation developing the overall plan of care Requesting and reviewing OSH records from multiple locations Gayla Chavez APRN Pulmonary Critical Care Pager: [phone] M2 team pager (2nd call/nights): [phone] Subjective: Camila Caldwell is a 64 y.o. who is resting in bed on the ventilator this AM. ROS: Review of systems not obtained due to patient factors. Objective: Medications: Scheduled Meds:albuterol-ipratropium (DUONEB) nebulizer solution 3 mL, 3 mL, Inh alation, Q4H & PRN aspirin chewable tablet 81 mg, 81 mg, Feeding Tube, QDAY atorvastatin (LIPITOR) tablet 80 mg, 80 mg, Oral, QDAY cefTRIAXone (ROCEPHIN) IVP 1 g, 1 g, Intravenous, Q24H* chlorhexidine gluconate (PERIDEX) 0.12 % solution 15 mL, 15 mL, SEE ADMIN INSTRU CTIONS, BID(8-) clopiDOGrel (PLAVIX) tablet 75 mg, 75 mg, Oral, QDAY doxycycline (VIBRAMYCIN) 100 mg in dextrose 5% (D5W) 100 mL IVPB, 100 mg, Intrav enous, Q12H* enoxaparin (LOVENOX) syringe 40 mg, 40 mg, Subcutaneous, QDAY() pantoprazole (PROTONIX) injection 40 mg, 40 mg, Intravenous, BID(04-19) polyethylene glycol 3350 (MIRALAX) packet 17 g, 1 packet, Oral, QDAY Continuous Infusions: dexMEDEtomidine (PRECEDEX) 400 mcg/NS 100 ml IV drip (premade) Stopped (10/29 07/20 1151) fentaNYL (SUBLIMAZE) 1000 mcg/100 mL NS IV drip (std conc)(premade) Stopped (11/18/20 1215) insulin regular 100 units/NS 100 mL IV drip (premade) 11.5 Units/hr ( 1 1246) norepinephrine (LEVOPHED) 4 mg/250 mL NS IV drip (std conc)(premade) Stopp ed (11/18/20 0824) propofol (DIPRIVAN) 10 mg/mL IV drip Stopped (11/18/20 0943) PRN and Respiratory Meds:acetaminophen Q6H PRN, bisacodyL QDAY PRN, camphor/ment hol TID PRN, cyclobenzaprine TID PRN, docusate QDAY PRN, nalOXone PRN, pancrelip ase 20,880 Units/sodium bicarbonate 650 mg ([facility] CLOG DESTROYER) PRN (Mold Washer from Rx) Vital Signs: Last Filed Vital Signs: 24 Hour Ra nge BP: 90/50 (11/18 1200) Temp: 37 C (98.6 F) (11/18 0740) Pulse: 72 (11/18 1200) Respirations: 13 PER MINUTE (11/18 1200) SpO2: 96 % (11/18 1200) SpO2 Pulse: 71 (11/18 1152) Height: 170.2 cm (67.01") (11/17 1528) BP: (77-157)/(45-72) Temp: [36.7 C (98 F)-37.6 C (99.7 F)] Pulse: [71-106] Respirations: [13 PER MINUTE-26 PER MINUTE] SpO2: [95 %-99 %] Intensity Pain Scale (Self Report): 3 (11/18/20 1147) Vitals: 11/17/20 1139 11/17/20 1528 Weight: 99.4 kg (219 lb 2.2 oz) 99.3 kg (219 lb) Intake/Output Summary: (Last 24 hours) Intake/Output Summary (Last 24 hours) at 11/18/2020 1302 Last data filed at 11/18/2020 1300 Gross per 24 hour Intake 2216.8 ml Output 3796 ml Net -1579.2 ml Physical Exam: Physical Exam: General appearance: sedated Head: Normocephalic Eyes: conjunctivae/corneas clear. PERRL Mouth/throat: Moist mucous membranes, ett Neck: supple, symmetrical, trachea midline Lungs: mechanically ventilated, prolonged expiratory phase Heart: regular rate and rhythm Abdomen: soft, round. Previous surgical scar, well healed except for at the top, some eschar and redness, no drainage Extremities: extremities normal, atraumatic Neurologic: sedated Peripheral pulses: 2+ and symmetric Cap Refill: <3 sec Skin: Skin color, texture, turgor normal. Groin with red, papular rash LABS: Recent Labs 11/17/20 1159 11/18/20 0258 NA 140 145 K 4.3 3.4* CL 100 105 CO2 26 27 GAP 14* 13* BUN 18 31* CR 0.94 1.00 GLU 516* 269* CA 9.6 9.1 ALBUMIN 4.2 3.6 MG 1.7 1.6 PO4 5.6* 3.7 HGBA1C 10.6* -- TSH 1.48 -- Recent Labs 11/17/20 1159 11/17/20 1537 11/17/20 1953 11/17/20 2200 11/18/20 0258 WBC 18.6* 20.3* -- 20.6* 20.4* HGB 13.4 12.8 -- 12.2 11.3* HCT 40.4 37.9 -- 35.9* 33.9* PLTCT 327 398 -- 356 307 INR 1.1 -- -- -- -- AST 87* -- -- -- 41* ALT 103* -- -- -- 69* ALKPHOS 133* -- -- -- 97 TNI 0.20* 0.27* 0.32* 0.35* 0.27* Estimated Creatinine Clearance: 69.7 mL/min (based on SCr of 1 mg/dL). Vitals: 11/17/20 1139 11/17/20 1528 Weight: 99.4 kg (219 lb 2.2 oz) 99.3 kg (219 lb) Recent Labs 11/17/20 1159 11/17/20 1423 PHART 7.24* 7.33* PO2ART 96 101* Radiology and Other Diagnostic Procedures Review: Reviewed T * Joy Peterson MD - 11/17/2020 3:37 PM CDT MICU STAFF NOTE Name: Camila Caldwell Code Status: Full Code Admission Date: 11/17/2020 I have independently seen, personally fully evaluated, and discussed patient wit h the Medical ICU team. I spent 65 minutes (excluding time spent performing or supervising any procedure s and independent of TOUR SALES REPRESENTATIVE review) providing and personally directing critical care services including Systems and physical examination Review of laboratory data Review of telemetry data Review of imaging studies Review of medications Fluid and electrolyte management Coordination of care with consulting services Serial evaluations of respiratory and mental status History: Ms. Caldwell is a 64 yo F who was transferred from an OSH due to acute respirator y failure with bilateral infiltrates. Per report, she worked all days yesterday , then came home and ate dinner and went to bed. She was later found down by jaylen calloway in the early AM. In respiratory failure and intubated at OSH. No other ac [place] symptoms prior to event. She arrived here intubated, sedated and paralyzed. Review of Systems: Unable to obtain due to patient factors. Vitals: 11/17/20 1528 BP: 111/71 Pulse: Temp: SpO2: Physical Exam: General: Intubated and sedated Head: Normocephalic, without obvious abnormality, atraumatic Eyes: Conjunctivae/corneas clear. PERRL Throat: Lips, mucosa moist; ETT in place Neck: Supple, symmetrical, trachea midline Lungs: Clear mechanical breath sounds to auscultation bilaterally, no wheezes, non-labored on the vent. Heart: Regular rate and rhythm, S1, S2 normal, no murmur Abdomen: Soft, non-tender. Obese. Bowel sounds normal. Extremities: 1+ edema in BLE Peripheral pulses 2+ and symmetric, all extremities Skin: No rashes Neurologic: Sedated Assessment: The patient is critically ill with the conditions listed below: Principal Problem: Acute respiratory failure with hypoxia and hypercapnia (FORMERLY [facility]) Active Problems: HTN (hypertension) DM (diabetes mellitus) ([facility]) CAD (coronary artery disease) CHF (congestive heart failure) ([facility]) COPD (chronic obstructive pulmonary disease) ([facility]) Plan: - Check EKG, Troponin - TTE - Diuresis to keep net negative - BAL to r/u alveolar hemorrhage and infection - Continue anticoagulation if no evidence of DAH - Ceftriaxone and doxy for empiric antibiotics - Glucose control - Continue to support on ventilator and wean as tolerated - Requiring some pressors, likely sedation related. Will wean as tolerated - Sedation holiday to assess mental status * Jean Blake RN - 11/17/2020 1:32 PM CDT Vascular Access Team consulted to obtain lab specimen. Ultrasound Used: Yes How Many Attempts: 1 Location of Unsuccessful Attempts: NA At 1330 approximately 20 ml of blood obtained from patients right upper arm. Pat ient tolerated the procedure well. Specimen labeled and sent to lab. documented in this encounter H&P Notes * Gayla Chavez APRN-NP - 11/17/2020 5:39 PM CDT Images from the original note were not included. Gayla Chavez APRN-NP Nurse Practitioner Med-ICU Progress Notes Signed Creation Time: 11/17/20 1049 Expand AllCollapse All []Hide copied text []Paula for details Critical Care Admission History and Physical Assessment Name: Camila Caldwell Admission Date: 11/17/2020 Principal Problem: Acute respiratory failure with hypoxia and hypercapnia (HCC) Active Problems: HTN (hypertension) DM (diabetes mellitus) (HCC) CAD (coronary artery disease) CHF (congestive heart failure) (HCC) COPD (chronic obstructive pulmonary disease) (HCC) Metabolic acidosis A-fib (HCC) Assessment and Plan NEURO Encephalopathy Sedation Fall - reportedly fell at home, CT head at OSH with no acute abnormality Plan - fent/prop - wean as able - Ammonia with hx liver disease - UDS Chronic pain? - on review of prior med list, appears she has some type of chronic pain - holdi ng LICENSED ELECTRICIAN meds for now and will monitor PULM Respiratory failure - hypoxia and hypercapnia - Intubated at OSH after found less than responsive; sat 60s with BVM; 7.07/87/2 83 immediately post intubation; repeat 7.33/56/146 on 100% - Imaging with bilat opacities - Ddx includes pna vs heart failure vs DAH on AC vs drug toxicity vs less likely PE with LICENSED ELECTRICIAN AC use - Adjusting vent settings throughout the day; MMV currently 2/2 pt's need for pr olonged expiratory phase Plan - CXR now - Cont MV, adjusting settings as needed - ID as below - BNP on arrival, lasix now and repeat as needed for net neg 1-2 L - Bronch today CV Hx CAD s/p Stenting - per family last in 06/2020 Hx HTN Hx Afib - LICENSED ELECTRICIAN meds unclear as list is outdated, attempting to verify current meds but in clude various antihypertensives, ? Amio, apixiban - s/p 1L LR at OSH - Currently HR 70s, SBP 80-110s; did drop with increased prop requiring NE - previous echo read in 06/2020 with normal EF, mild enlargement, some moderate A S Plan - Echo now - need to re-eval and for e/o any change in her EF - Diuresis - goal net neg 1-2L as tolerated; will work to obtain LICENSED ELECTRICIAN list to det ermine her baseline diuretic dose - BNP, trop - ID as below - Cont Apixiban assuming no e/o bleeding GI - NPO, TF with fiberglass roller consult - OGT with some blood tinged output, will monitor closely - PPI LICENSED ELECTRICIAN - cont RENAL Metabolic acidosis - Cr. 1.27 at OSH (unknown baseline), KUMC 0.94, bicarb 26, AG 14, LA 1.6 - LA 4.6 at OSH Plan - Trend labs as needed - [place]ton for accurate IO ENDO DM - LICENSED ELECTRICIAN meds unclear, family reports insulin use but not sure dose or frequency - Glucose 608 at OSH; 500s at [facility] - family reports this is not abnormal for pt Plan - hold LICENSED ELECTRICIAN meds - SQ insulin, low threshold for gtt - A1C ordered ID PNA? Leukocytosis - WBC 16.4 at OSH with infiltrates reported on imaging - RVP, COVID reportedly neg LICENSED ELECTRICIAN - Received rocephin and vanc at OSH Plan - Procal - Blood, sputum cx - UA with reflex - strep pneumo, legionella - Cont ceftriaxone, add doxy - mrsa PCR; pending this will cont vanc SKIN Rash vs moisture breakdown - groin with some redness, papular appearing rash - monitor; antifungal barrier cream Code status: Disposition: admit to ICU 97549 x 1, 00513 x 2 - pt critically ill with above. I spent 115 minutes providi critical care services including: reviewing outside records and obtaining history from the patient/family membe rs performing a physical examination serially reviewing laboratory, telemetry, hemodynamic, oximetry, and respirat ory data reviewing radiographic images reviewing medications managing fluids/electrolytes, antibiotics, ICU prophylaxis, and mechanical ve ntilation developing the overall plan of care Requesting and reviewing OSH records from multiple locations Gayla Chavez APRN Pulmonary Critical Care Pager: [phone] M2 team pager (2nd call/nights): [phone] Primary Care Physician: Mamie Her CHIEF COMPLAINT: Respiratory failure HISTORY OF PRESENT ILLNESS: Camila Caldwell is a 64 y.o. female with PMh signific ant for CHF, CAD s/p stenting, COPD, DM, HTN, HLD, ?chronic pain who presented t o OSH after fall and altered level of consciousness. She was quite hypoxic requi ring BVM on arrival. She was subsequently intubated. 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 She retur ronaldo home, ate dinner and went to bed. She was found by family early this AM. No c/o any change in sx prior to this event per family, though pt unable to corrobo rate 2/2 intubation and sedation. PMH: Medical History: Diagnosis Date CHF (congestive heart failure) (HCC) COPD (chronic obstructive pulmonary disease) (HCC) DM (diabetes mellitus) (HCC) Gastrointestinal disorder HLD (hyperlipidemia) Hypertension Myocardial infarction (HCC) Restless legs syndrome (RLS) PSH: Surgical History: Procedure Laterality Date HX HEART CATHETERIZATION HYSTERECTOMY SOCIAL HISTORY: Social History Socioeconomic History Marital status: Spouse name: Not on file Number of children: Not on file Years of education: Not on file Highest education level: Not on file Occupational History Not on file Tobacco Use Smoking status: Former Smoker Packs/day: 1.00 Years: 30.00 Pack years: 30.00 Types: Cigarettes Quit date: 04/16/2000 Years since quittin.6 Smokeless tobacco: Former User Quit date: 04/16/1990 Substance and Sexual Activity Alcohol use: No Drug use: No Sexual activity: Not on file Other Topics Concern Not on file Social History Narrative Not on file FAMILY HISTORY: Family History Problem Relation Age of Onset Heart Attack Father 64 Hypertension Mother IMMUNIZATIONS: There is no immunization history on file for this patient. ALLERGIES: Morphine HOME MEDICATIONS: Medications Prior to Admission Medication Sig albuterol (VENTOLIN HFA, PROAIR HFA) 90 mcg/Actuation inhaler Inhale 2 puffs by mouth into the lungs every 4 hours as needed. 2 puff q4hrs as needed for rodrick rtness of breath or cough aspirin 325 mg tablet Take 325 mg by mouth daily. atorvastatin (LIPITOR) 80 mg tablet Take 80 mg by mouth daily. bumetanide (BUMEX) 2 mg tablet Take 2 mg by mouth twice daily. cetirizine (ZYRTEC) 10 mg tablet Take 10 mg by mouth daily. clopidogrel (PLAVIX) 75 mg Take 75 mg by mouth daily. cyclobenzaprine (FLEXERIL) 10 mg tablet Take 10 mg by mouth three times edward y as needed. docusate (COLACE) 100 mg capsule Take 1 Cap by mouth daily as needed for Con stipation. DULoxetine DR (CYMBALTA) 60 mg capsule Take 60 mg by mouth daily. fluticasone/salmeterol (ADVAIR) 250/50 mcg inhalation disk Inhale 1 Puff by mouth every 12 hours. isosorbide mononitrate SR (IMDUR) 30 mg tablet Take 1 Tab by mouth daily. meloxicam (MOBIC) 15 mg tablet Take 15 mg by mouth daily. pantoprazole DR (PROTONIX) 40 mg tablet Take 40 mg by mouth daily. sacubitriL-valsartan (ENTRESTO) 24-26 mg tablet Take 1 tablet by mouth twice daily. semaglutide (OZEMPIC) 0.25 mg or 0.5 mg(2 mg/1.5 mL) injection PEN Inject 0. 5 mg under the skin every 7 days. SITagliptin (JANUVIA) 100 mg tab tablet Take 100 mg by mouth daily. tiotropium (SPIRIVA) 18 mcg capsule for inhaler Inhale 18 mcg by mouth daily . ROS: Review of systems not obtained due to patient factors. Physical Exam: General appearance: sedated Head: Normocephalic Eyes: conjunctivae/corneas clear. PERRL Mouth/throat: Moist mucous membranes, ett Neck: supple, symmetrical, trachea midline Lungs: mechanically ventilated, prolonged expiratory phase Heart: regular rate and rhythm Abdomen: soft, round. Previous surgical scar, well healed except for at the top, some eschar and redness, no drainage Extremities: extremities normal, atraumatic Neurologic: sedated Peripheral pulses: 2+ and symmetric Cap Refill: <3 sec Skin: Skin color, texture, turgor normal. Groin with red, papular rash Artificial Airway Endotracheal Tube Ventilator/Respiratory Therapy Yes: SAT Safety Screen Exempt (Nursing Only): Exempt-Provider orders to hold int erruption Mode: MMV Set Vt (ml): [400 milliliters] Tidal Volume Spont (mL): [274 milliliters-507 milliliters] Set RR: [18 breaths/minutes-25 breaths/minutes] Total Respiratory Rate (Breaths/Min): [18 breaths/minutes-24 breaths/minutes] Minute Volume (L/min): [7.2 liters/minutes-10.1 liters/minutes] %MVspon: [0 %] O2%: [80 %-100 %] PIP Actual: [9.6 cm H20-29 cm H20] PEEP/CPAP: [5 cm H2O-7 cm H2O] PSupport: [10 cm H20] Plateau Pressure: [26 cm H2O] Vent Weaning Per protocol Vital Signs: Vital Signs: Last Filed Vital Signs: 24 Hour Ra nge BP: 111/71 (11/17 152) Temp: 36.9 C (98.4 F) (11/17 1143) Pulse: 77 (11/17 1500) Respirations: 24 PER MINUTE (11/17 1500) SpO2: 99 % (11/17 1500) SpO2 Pulse: 77 (11/17 1500) Height: 170.2 cm (67.01") (11/18 1527) BP: (89-154)/(60-88) Temp: [36.9 C (98.4 F)] Pulse: [75-105] Respirations: [13 PER MINUTE-24 PER MINUTE] SpO2: [93 %-99 %] Vitals: 11/17/20 1139 11/17/20 1528 Weight: 99.4 kg (219 lb 2.2 oz) 99.3 kg (219 lb) Laboratory: Recent Labs 11/17/20 1159 NA 140 K 4.3 CL 100 CO2 26 GAP 14* BUN 18 CR 0.94 GLU 516* CA 9.6 ALBUMIN 4.2 MG 1.7 PO4 5.6* TSH 1.48 Recent Labs 11/17/20 1159 WBC 18.6* HGB 13.4 HCT 40.4 PLTCT 327 INR 1.1 AST 87* ALT 103* ALKPHOS 133* TNI 0.20* Estimated Creatinine Clearance: 74.2 mL/min (based on SCr of 0.94 mg/dL). Vitals: 11/17/20 1139 11/17/20 1528 Weight: 99.4 kg (219 lb 2.2 oz) 99.3 kg (219 lb) Recent Labs 11/17/20 1159 11/17/20 1423 PHART 7.24* 7.33* PO2ART 96 101* Radiology and Other Diagnostic Procedures Review: Reviewed documented in this encounter Consult Notes * Sujey Stanton, LAUREEN - 11/17/2020 2:41 PM CDT Associated Order(s): CONSULT DIETITIAN CLINICAL NUTRITION Clinical Nutrition Initial Assessment Name: Camila Caldwell : 1955 Age: 64 y.o. Admission Date: 11/17/2020 LOS: 0 days Recommendation: When ready to start EN, Peptamen Intense VHP @ 20ml/hr with ICU/volume-based feeding order set -advancement per team to acute goal (while on propofol) of 40m l/hr (24hr goal 960ml, 4hr goal 160ml). Prosource 3 packs/day. Provides 1140kcal , 133g protein, 806ml free H2O. H2O boluses per team. Comments: Nutrition consulted for EN recs. Assessment limited to chart review at this ti me. 64 yo F with hx including COPD, HTN, DM, pulmonary HTN, a.fib, and Hep C, be ing admitted today following syncope/collapse at home in setting of acute respir atory failure, volume-overload, DKA. Covid rule-out in process. On low-dose pres sor & propofol sedation. Intubated with OGT in place. No acute GI noted. Nutrition Assessment of Patient: Admit Weight: 99.4 kg(11/17 bed scale); ; Desired Weight: 72.1 kg(for BMI 24.9; [place] wt: 61.4kg ([place])) BMI (Calculated): 34.31; BMI Categories Adult: Obesity Class I: 30-34.9; Appeara nce: Unable to observe Pertinent Allergies/Intolerances: none noted Pertinent Labs: reviewed; Na 140 not corrected for glucose 516, K 4.3, phos 5.6, MG 1.7, +NH3 +BNP +ketones AG 14; Cr 0.94 Pertinent Meds: reviewed; 0.05 NE gtt, propofol @ 40mcg/kg/min, IV doxy, insuli n, bowel meds; Unintentional Weight Loss: (unable to determine at this time) Current Oral Intake: NPO Estimated Calorie Needs: 1345-1435kcal (75-80% calculated RMR or 13-14kcal/kg ad juan francisco wt) Estimated Protein Needs: 122-153g (2-2.5g/kg ideal wt) Malnutrition Assessment: (further data pending); Nutrition Focused Physical Assessment: Edema: Yes; Severity: Mild; Location: Generalized Pressure Injury: none noted Comment: BM LICENSED ELECTRICIAN, abdomen soft/round/obese per RN Nutrition Diagnosis: Inadequate protein-energy intake Etiology: syncope/resp failure with new intubation need Signs & Symptoms: HPI/consult for EN recs; NPO Intervention / Plan: Will monitor tolerance to EN initation & adjust nutrition recs prn Goals: Initiate nutrition Time Frame: Within _ hours(within 12 hours of intubation, if adequately stable) Sujey Stanton RD, LD, CNSC Available on Voalte | Office: [phone] documented in this encounter Miscellaneous Notes * Care Plan - Nani Valdivia RN - 11/21/2020 1:40 PM CDT Problem: Infection, Risk of Goal: Absence of infection Outcome: Goal Achieved Problem: Skin Integrity Goal: Skin integrity intact Outcome: Goal Achieved Goal: Healing of skin (Wound & Incision) Outcome: Goal Achieved Goal: Healing of skin (Pressure Injury) Outcome: Goal Achieved Problem: Nutrition Deficit Goal: Adequate nutritional intake Outcome: Goal Achieved Problem: Self-Care Deficit Goal: Maximize ADL functioning Outcome: Goal Achieved Problem: Mobility/Activity Intolerance Goal: Maximize functional ADL's and mobility outcomes Outcome: Goal Achieved Problem: Moderate Fall Risk Goal: Moderate Fall Risk Outcome: Goal Achieved * Case Mgmt DC Plan - Светлана Jane RN - 11/21/2020 11:29 AM CDT Case Management Progress Note NAME:Camila Caldwell : [birth year] AGE: 64 y.o. ADMISSION DATE: 11/17/2020 DAYS ADMITTED: LOS: 4 days Todays Date: 11/21/2020 Plan discharge home today Pt's to provide transportation at discharge. Interventions Support Info or Referral Discharge Planning Discharge Planning: No Needs Identified Reviewed EMR; attended huddle Medication Needs Financial Legal Other Disposition Expected Discharge Date 11/21/2020 4:00 PM Transportation Does the patient need discharge transport arranged?: No Transportation Name, Phone and Availability #1: Spouse Next Level of Care (Acute Psych discharges only) Discharge Disposition Selected Continued Care - Admitted Since 11/17/2020 No services have been selected for the patient. MARLI Gilbert, premium representative Nurse Reuse Technician [phone] * Care Plan - Corie Jean RN - 11/20/2020 10:30 PM CDT Problem: Infection, Risk of Goal: Absence of infection Outcome: Goal Ongoing Flowsheets (Taken 11/20/2020 0505) Absence of infection: Assess for infection (Monitor SIRS Criteria) Monitor for signs and symptoms of infection Administer pharmacological therapies as ordered Implement prevention measures as indicated Problem: Skin Integrity Goal: Skin integrity intact Outcome: Goal Ongoing Flowsheets (Taken 11/20/2020 0505) Skin integrity intact: Assess nutrition Promote nutrition Monitor skin integrity Assure position change Reduce skin shear, friction and tissue load Provide skin care interventions Goal: Healing of skin (Wound & Incision) Outcome: Goal Ongoing Flowsheets (Taken 11/20/2020 0505) Healing of wound (wounds and Incisions): Assess for signs and symptoms of wound infection Assess wound site healing Implement wound/incision care as ordered Provide wound/incision care as ordered Goal: Healing of skin (Pressure Injury) Outcome: Goal Ongoing Flowsheets (Taken 11/20/2020 0505) Healing of skin (Pressure Injury): Assess for signs and symptoms of pressure injury infection Use the National Pressure Injury Advisory Panel Staging System for grading p ressure injuries Assess pressure injury Implement pressure injury care as ordered Implement pressure relieving device/specialty mattress Promote ambulation Provide pressure injury care education as ordered Problem: Nutrition Deficit Goal: Adequate nutritional intake Outcome: Goal Ongoing Flowsheets (Taken 11/20/2020 0505) Adequate nutritional intake: Assess dietary preferences Promote oral fluid intake Knowledge of nutritional diet Assess nutritional status Problem: Self-Care Deficit Goal: Maximize ADL functioning Outcome: Goal Ongoing Problem: Mobility/Activity Intolerance Goal: Maximize functional ADL's and mobility outcomes Outcome: Goal Ongoing Flowsheets (Taken 11/20/2020 0505) Maximize functional ADLs and mobility outcomes: Administer oxygen to maintain SpO2 at approprate levels Maintain body position Manage environmental safety Consider consult for mobility/activity intolerance Manage energy conservation for mobility/activity intolerance Physical thrapy evaluation and treatment Occupational therapy evaulation and treatment * Patient Education - Corie Jean RN - 11/20/2020 10:29 PM CDT Medication Education Camila Caldwell accepted counseling and was interactive. She verbalized understa nding. The following medications were discussed: Tylenol, eliquis, ancef, flexeril, voltaren gel, flonase, insulin, lyrica, and r equip Also discussed with Ms Caldwell: plan of care, dietary orders, pain scale/managem ent, fall risk bundle, monitoring blood glucose levels, monitoring intake and ou tput, and monitoring VS/telemetery. Where indicated, Ms. Caldwell was provided with additional medication and/or dise ase-state information. All patient questions were answered and Ms. Caldwell ackn owledged understanding of the medications, side effects and other pertinent medi cation information. Follow up should occur as needed. Continue to address: indications Corie Jean RN 11/20/2020 * Transfer - Max Hobbs APRN-NP - 11/20/2020 6:09 AM CDT In-Hospital Transfer Note Admission Diagnosis: Acute respiratory failure Admission Date: 11/17/2020 Active Hospital Problem List: Principal Problem: Acute respiratory failure with hypoxia and hypercapnia ([facility]ERLY [facility]) Active Problems: HTN (hypertension) DM (diabetes mellitus) (HCC) CAD (coronary artery disease) CHF (congestive heart failure) (HCC) COPD (chronic obstructive pulmonary disease) (HCC) Metabolic acidosis A-fib (HCC) Hospital Course: Ms. Caldwell is a 64 yo F w/ a PMHx of HTN, DM, CAD s/p stentin g, CHF, COPD and chronic pain who was transferred from OSH with acute respirator y failure requiring intubation and e/o bilateral infiltrates. Etiology for respi ratory failure - PNA + CHF. Continues w/ diuresis and abx. Successfully extubate d 11/18. Significant Medication Information (to include antibiotic duration/indication, a nticoagulation and steroids, etc.): - continue LICENSED ELECTRICIAN lyrica at reduced dose, PRN flexeril, diclofenac gel, cymbalta - continue LICENSED ELECTRICIAN bumex, amiodarone, apixaban, ASA, atorvastatin, plavix. Continue holding LICENSED ELECTRICIAN antihypertensives - insulin gtt- has used 48u in 24hr. Changed to HDCF this AM - change 30u long-acting qHS to 20u BID - continue ceftriaxone (11/16-11/22), doxy (stop date 11/22) - apixaban for anticoagulation Procedures With Dates: Bronchoscopy 11/17 Consults: None Follow-Up Items: Needs reconciliation of medication list. - Electrolytes replaced this AM based on 0227 labs Activity/Weight bearing status: WBAT Nutrition: Diabetic diet Discharge Plan: Per last OT note: Currently patient requires inpatient level of care. However, typical progression for patient condition would anticipate home with assistance at time of discharge. Max Hobbs APRN Pulm/Critical Care [id number] Available on Needalte and VCEatr. Checkout given to Dr. Shepherd. * Care Plan - Corie Jean RN - 11/20/2020 5:06 AM CDT Problem: Infection, Risk of Goal: Absence of infection Outcome: Goal Ongoing Flowsheets (Taken 11/20/2020 0505) Absence of infection: Assess for infection (Monitor SIRS Criteria) Monitor for signs and symptoms of infection Administer pharmacological therapies as ordered Implement prevention measures as indicated Problem: Skin Integrity Goal: Skin integrity intact Outcome: Goal Ongoing Flowsheets (Taken 11/20/2020 0505) Skin integrity intact: Assess nutrition Promote nutrition Monitor skin integrity Assure position change Reduce skin shear, friction and tissue load Provide skin care interventions Goal: Healing of skin (Wound & Incision) Outcome: Goal Ongoing Flowsheets (Taken 11/20/2020 0505) Healing of wound (wounds and Incisions): Assess for signs and symptoms of wound infection Assess wound site healing Implement wound/incision care as ordered Provide wound/incision care as ordered Goal: Healing of skin (Pressure Injury) Outcome: Goal Ongoing Flowsheets (Taken 11/20/2020 0505) Healing of skin (Pressure Injury): Assess for signs and symptoms of pressure injury infection Use the National Pressure Injury Advisory Panel Staging System for grading pres sure injuries Assess pressure injury Implement pressure injury care as ordered Implement pressure relieving device/specialty mattress Promote ambulation Provide pressure injury care education as ordered Problem: Nutrition Deficit Goal: Adequate nutritional intake Outcome: Goal Ongoing Flowsheets (Taken 11/20/2020 0505) Adequate nutritional intake: Assess dietary preferences Promote oral fluid intake Knowledge of nutritional diet Assess nutritional status Problem: Self-Care Deficit Goal: Maximize ADL functioning Outcome: Goal Ongoing Problem: Mobility/Activity Intolerance Goal: Maximize functional ADL's and mobility outcomes Outcome: Goal Ongoing Flowsheets (Taken 11/20/2020 0505) Maximize functional ADLs and mobility outcomes: Administer oxygen to maintain SpO2 at approprate levels Maintain body position Manage environmental safety Consider consult for mobility/activity intolerance Manage energy conservation for mobility/activity intolerance Physical thrapy evaluation and treatment Occupational therapy evaulation and treatment * Patient Education - Corie Jean RN - 11/20/2020 5:04 AM CDT Medication Education Camila Rosener accepted counseling and was interactive. She verbalized understa nding. The following medications were discussed: Magnesium, potassium, and insulin Also discussed with Ms Caldwell: plan of care, dietary orders, pain scale/managem ent, fall risk bundle, monitoring blood glucose levels, monitoring intake and ou tput, and monitoring VS/telemetery. Where indicated, Ms. Caldwell was provided with additional medication and/or dise ase-state information. All patient questions were answered and Ms. Caldwell mouna owledged understanding of the medications, side effects and other pertinent medi cation information. Follow up should occur as needed. Continue to address: etienne Jean RN 11/20/2020 * Care Coordination-Inpatient - Shira Muller MD - 11/20/2020 2:56 AM CDT For any questions prior to 7am please call team ICU-1. After 7am contact Team Me jenkins 1 , pager [phone] * Case Mgmt DC Plan - Mayank Tomásbud - 11/18/2020 1:01 PM CDT Case Management Admission Assessment NAME:Camila Caldwell :[birth year] AGE: 64 y.o. ADMISSION DATE: 11/17/2020 DAYS ADMITTED: LOS: 1 day Todays Date: 11/18/2020 Source of Information: patient's spouse Plan Plan: Case Management Assessment, Assist PRN with SW/NCM Services Discharge planning ongoing Continue ICU care Intubated PT/OT/ST Patient lives with spouse and adult granddaughter. Patient was independent and working full-time prior to admission. Patient has oxygen for PRN use at home. is not certain of provider. SW provided contact information and encouraged patient/family to call with quest ions or concerns. Patient Address/Phone [address] [place] [phone] (home) Emergency Contact Extended Emergency Contact Information Primary Emergency Contact: Josefina Caldwell Address: [address] [place] [address] Mobile Relation: Daughter Secondary Emergency Contact: Kirit Caldwell Mobile Relation: Spouse Healthcare Directive yes, need a copy for our records. Transportation Does the patient need discharge transport arranged?: No Transportation Name, Phone and Availability #1: Spouse Expected Discharge Date 11/21/2020 Living Situation Prior to Admission Living Arrangements Type of Residence: Home, independent Living Arrangements: Spouse/significant other, Other (Comment)( and adult granddaughter-22yo) How many levels in the residence?: 1 Can patient live on one level if needed?: Yes Does residence have entry and/or side stairs?: Yes(3 ADBI) Level of Function Prior level of function: Independent Cognitive Abilities Cognitive Abilities: Unable to Assess Financial Resources Coverage Primary Insurance: Medicare Replacement Additional Coverage: RX Source of Income Source Of Income: Employed, works at [employer]. 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 Financial Assistance Needed? no Psychosocial Needs Mental Health Mental Health History: No Substance Use History Substance Use History Screen: No Other Current/Previous Services PCP Henrry See, , Pharmacy [address] [address] Durable Medical Equipment Durable Medical Equipment at home: Oxygen, is not certain the agency for oxygen (uses PRN) Home Health Receiving home health: No Hemodialysis or Peritoneal Dialysis Undergoing hemodialysis or peritoneal dialysis: No Tube/Enteral Feeds Receive tube/enteral feeds: No Infusion Receive infusions: No Private Duty Private duty help used: No Home and Community Based Services Home and community based services: No Jason White Jason White: N/A Hospice Hospice: No Outpatient Therapy PT: No OT: No GROUNDS CARETAKER: No Snf Facility/Assisted SNF: No NH: No Inpatient Rehab IPR: No [facility] LTACH: No Acute Hospital Stay Acute Hospital Stay: No Len Talley LMSW [phone] (phone) [phone] (pager) * Procedures (Immed Post or Bedside) - Joy Peterson MD - 11/17/2020 3:31 PM CDT Bronchscopy Note Indications: Bilateral infiltrates Bronchoscopist: Joy Peterson MD Anesthesia: ICU sedation ASA Class: 4 Procedure Details Bronchoscope was advanced through the ETT to the bilateral airways. Airways wer e inspected to at least the segmental airways. BAL was performed in the lingula . Findings: Mucus plugs were found in the trachea and bilateral mainstem airways. Cellular BAL fluid was returned on BAL with mucus plugs. All mucus was therapeutically a spirated from the airways. Estimated Blood Loss: None Specimens: BAL Complications: None Disposition: ICU - intubated and critically ill. Condition: stable documented in this encounter Plan of Treatment Date/Time Name Type Priority Associated Diag noses 11/17/2020 11:30 AM CDT POC MICU US CARDIAC Imaging Routine LIMITED 11/17/2020 3:32 PM CDT CULTURE-TB (AFB) Microbiology Routine 11/17/2020 3:32 PM CDT CYTOLOGY SPECIMEN LABEL Pathology Routine documented as of this encounter Goals Goal Patient Associated Recent Progress Patient-Stat Aut hor Goal Type Problems ed? Resume normal activities Hospital On track (11/20/2020 No Jean, 5:03 AM CDT) BRI Fontenot documented as of this encounter Procedures Comments Procedure Name Priority Date/Time Associated Diag nosis POC GLUCOSE 11/21/2020 11:15 AM CDT POC GLUCOSE 11/21/2020 7:34 AM CDT HC PHOSPHOROUS, SERUM Routine 11/21/2020 (PO4CT) 7:27 AM CDT HC MAGNESIUM (MGCT) Routine 11/21/2020 7:27 AM CDT HC CBC W/ AUTOMATED DIFF Routine 11/21/2020 7:27 AM CDT HC COMPREHENSIVE Routine 11/21/2020 METABOLIC PANEL 7:27 AM CDT POC GLUCOSE 11/20/2020 9:25 [...] (MGCT) Routine 11/20/2020 2:27 AM CDT HC CBC W/ AUTOMATED DIFF Routine 11/20/2020 2:27 AM CDT HC COMPREHENSIVE Routine 11/20/2020 METABOLIC PANEL 2:27 AM CDT POC GLUCOSE 11/20/2020 2:19 [...] (MGCT) Routine 11/19/2020 4:00 AM CDT HC CBC W/ AUTOMATED DIFF Routine 11/19/2020 4:00 AM CDT HC COMPREHENSIVE Routine 11/19/2020 METABOLIC PANEL 4:00 AM CDT POC GLUCOSE 11/19/2020 12:48 [...] POC GLUCOSE 11/18/2020 4:14 AM CDT HC PHOSPHOROUS, SERUM Routine 11/18/2020 (PO4CT) 2:58 AM CDT HC MAGNESIUM (MGCT) Routine 11/18/2020 2:58 AM CDT HC TROPONIN-I Routine 11/18/2020 2:58 AM CDT HC CBC W/ AUTOMATED DIFF Routine 11/18/2020 2:58 AM CDT HC COMPREHENSIVE Routine 11/18/2020 METABOLIC PANEL 2:58 AM CDT POC GLUCOSE 11/18/2020 2:57 [...] POC GLUCOSE 11/17/2020 5:22 PM CDT HC NON-LAMINATION BUILDER/THIN PREP Routine 11/17/2020 3:46 PM CDT HC FUNGITELL (FUNGT) Routine 11/17/2020 3:37 PM CDT TROPONIN-I Routine 11/17/2020 3:37 PM CDT HC CBC,AUTOMATED 91 Routine 11/17/2020 3:37 PM CDT HC ASPERGILLUS Routine 11/17/2020 GALACTOMANNAN AG 3:32 PM CDT HC PNEU JIROVECI QT Routine 11/17/2020 PCR(PJPQT) 3:32 PM CDT HC RVP PANEL NASAL SINGLE Routine 11/17/2020 RVPN 3:32 PM CDT HC HSV PCR Routine 11/17/2020 3:32 PM CDT CULTURE-FUNGAL,OTHER Routine 11/17/2020 3:32 PM CDT GRAM STAIN 11/17/2020 3:32 PM CDT CULTURE-TB (AFB) Routine 11/17/2020 3:32 PM CDT CULTURE-RESP,LOWER Routine 11/17/2020 W/SENSITIVITY 3:32 PM CDT HC CMV DNA QN BY PCR Routine 11/17/2020 3:32 PM CDT HC CELL COUNT Routine 11/17/2020 W/DIFF-FLUIDS 3:32 PM CDT 2D + DOPPLER ECHO W/ ISIDRO 11/17/2020 CONTRAST 3:28 PM CDT POC GLUCOSE 11/17/2020 2:23 PM CDT HC BLOOD Routine 11/17/2020 GASES;(CALCULATED 02) 2:23 PM CDT HC CALCIUM IONIZED 11/17/2020 1:57 PM CDT CULTURE-BLOOD Routine 11/17/2020 W/SENSITIVITY 1:30 PM CDT CONSULT IV THERAPY TEAM Routine 11/17/2020 12:44 PM CDT HC MRSA PNEUMONIA SCREEN Routine 11/17/2020 12:40 PM CDT UA REFLEX LABEL Routine 11/17/2020 12:40 PM CDT URINALYSIS MICROSCOPIC Routine 11/17/2020 REFLEX TO CULTURE 12:40 PM CDT HC URINALYSIS UAR Routine 11/17/2020 12:40 PM CDT STREPTOCOCCUS PNEUMO AG, Routine 11/17/2020 URINE 12:40 PM CDT HC PHENCYCLIDINES; QUAL Routine 11/17/2020 12:40 PM CDT HC OPIATES; QUAL Routine 11/17/2020 12:40 PM CDT LEGIONELLA ANTIGEN 11/17/2020 URINE,RAN 12:40 PM CDT HC COCAINE; QUAL Routine 11/17/2020 12:40 PM CDT HC CANNABINOIDS; QUAL Routine 11/17/2020 12:40 PM CDT HC BENZODIAZEPINES, QUAL Routine 11/17/2020 12:40 PM CDT HC BARBITURATES Routine 11/17/2020 12:40 PM CDT HC AMPHETAMINES QUAL, Routine 11/17/2020 URINE 12:40 PM CDT COVID-19 (SARS-COV-2) PCR Routine 11/17/2020 12:39 PM CDT HC PROLCALCITONIN (PROCA) STAT 11/17/2020 11:59 AM CDT HC TSH SCREEN Routine 11/17/2020 11:59 AM CDT CULTURE-BLOOD Routine 11/17/2020 W/SENSITIVITY 11:59 AM CDT HC LACTIC ACID - BG Routine 11/17/2020 SYRINGE 11:59 AM CDT HC TROPONIN-I STAT 11/17/2020 11:59 AM CDT HC PT(INR) Routine 11/17/2020 11:59 AM CDT HC CBC W/ AUTOMATED DIFF Routine 11/17/2020 11:59 AM CDT HC PHOSPHOROUS, SERUM Routine 11/17/2020 11:59 AM CDT HC B-TYPE NATRIURETIC Routine 11/17/2020 PEPTIDE 11:59 AM CDT HC MAGNESIUM Routine 11/17/2020 11:59 AM CDT HC HEMOGLOBIN A1C Add on 11/17/2020 11:59 AM CDT HC BLOOD STAT 11/17/2020 GASES;(CALCULATED 02) 11:59 AM CDT HC CALCIUM IONIZED Routine 11/17/2020 11:59 AM CDT HC AMMONIA Routine 11/17/2020 11:59 AM CDT HC COMPREHENSIVE Routine 11/17/2020 METABOLIC PANEL 11:59 AM CDT POC GLUCOSE 11/17/2020 11:56 [...] Routine 11/17/2020 EXTERNAL IMAGING 12:00 AM CDT TELEMETRY STRIPS-SCAN 11/17/2020 12:00 AM CDT TELEMETRY STRIPS-SCAN 11/17/2020 12:00 AM CDT TELEMETRY STRIPS-SCAN 11/17/2020 12:00 AM CDT ECG-SCAN 11/17/2020 12:00 AM CDT ECG-SCAN 11/17/2020 12:00 AM CDT GENERAL RAD MISC EXTERNAL Routine 07/25/2020 IMAGING 12:00 AM LINUX UNIX ADMINISTRATOR GENERAL RAD MISC EXTERNAL Routine 04/07/2020 IMAGING 12:00 AM LINUX UNIX ADMINISTRATOR GENERAL RAD CHEST Routine 10/24/2019 EXTERNAL IMAGING 12:00 AM CDT GENERAL RAD CHEST Routine 10/20/2019 EXTERNAL IMAGING 12:00 AM CDT GENERAL RAD CHEST Routine 07/03/2019 EXTERNAL IMAGING 12:00 AM LINUX UNIX ADMINISTRATOR GENERAL RAD CHEST Routine 03/05/2019 EXTERNAL IMAGING 12:00 AM CDT GENERAL RAD CHEST Routine 02/28/2019 EXTERNAL IMAGING 12:00 AM CDT documented in this encounter Results * POC GLUCOSE (11/21/2020 11:15 AM CDT) Glucose, POC 186 (H) 70 - 100 MG/DL MAIN LAB Specimen Performing Organization Address City/[facility]/ZIP Code P morris Number MAIN LAB [address] [place] [address] * POC GLUCOSE (11/21/2020 7:34 AM CDT) Glucose, POC 189 (H) 70 - 100 MG/DL [facility] MAIN LAB Specimen Performing Organization Address City/[facility]/ZIP Code P morris Number MAIN LAB [address] [place] [address] * PHOSPHORUS CELLULAR THERAPEUTICS (11/21/2020 7:27 AM CDT) Phosphorus 3.5 2.0 - 4.5 MG/DL MAIN LAB Specimen Blood Performing Organization Address City/[facility]/ZIP Code P morris Number MAIN LAB [address] [place] [id number] * MAGNESIUM CELLULAR THERAPEUTICS (11/21/2020 7:27 AM CDT) Magnesium 1.5 (L) 1.6 - 2.6 mg/dL MAIN LAB Specimen Blood Performing Organization Address City/[facility]/ZIP Code P morris Number [facility] MAIN LAB [address] [place] [address] * COMPREHENSIVE METABOLIC PANEL (11/21/2020 7:27 AM CDT) Sodium 136 (L) 137 - 147 MMOL/L [...] >60 >60 mL/min [facility] MAIN LAB Comment: [place] The eGFR is not validated f or use in drug dosing adjustments. Continue to use estimated creatinine clearance per dosing reference text. Please contact the Clinical Pharmacist for questions. eGFR >60 >60 mL/min [facility] MAIN LAB [place] Comment: The eGFR is not validated for use in drug dosing adjustments. Continue to use estimated creatinine clearance per dosing reference text. Please contact the Clinical Pharmacist for questions. Specimen Blood Performing Organization Address City/[facility]/ZIP Code P morris Number [facility] MAIN LAB [address] [place] [address] * CBC AND DIFF (11/21/2020 7:27 AM CDT) White Blood 8.5 4.5 - 11.0 K/UL [facility] MAIN LAB Cells RBC 4.26 4.0 - 5.0 M/UL [facility] MAIN LAB Hemoglobin 12.1 12.0 - 15.0 GM/DL [facility] MAIN LAB Hematocrit 36.3 36 - 45 % [facility] MAIN LAB MCV 85.0 80 - 100 FL [facility] MAIN LAB MCH 28.4 26 - 34 PG [facility] MAIN [facility] MCHC 33.4 32.0 - 36.0 G/DL MAIN LAB RDW 15.0 11 - 15 % [facility] MAIN LAB Platelet Count 282 150 - 400 K/UL MAIN LAB MPV 10.2 7 - 11 [...] Absolute 0.89 (H) 0 - 0.80 K/UL MAIN LAB Monocyte Count Absolute 0.19 0 - 0.45 K/UL [facility] MAIN [facility] Eosinophil Count Absolute 0.06 0 - 0.20 K/UL [facility] MAIN [facility] Basophil Count Specimen Blood Performing Organization Address City/[facility]/ZIP Code P morris Number MAIN LAB [address] [place] [address] * POC GLUCOSE (11/20/2020 9:25 PM CDT) Glucose, POC 199 (H) 70 - 100 MG/DL [facility] MAIN LAB Specimen Performing Organization Address [facility] Code P morris Number [facility] MAIN LAB [address] [place] [address] * POC GLUCOSE (11/20/2020 4:54 PM CDT) Glucose, POC 224 (H) 70 - 100 MG/DL MAIN LAB Specimen Performing Organization Address City/[facility] Code P morris Number MAIN LAB [address] [place] [address] * POC GLUCOSE (11/20/2020 1:52 PM CDT) Glucose, POC 161 (H) 70 - 100 MG/DL MAIN LAB Specimen Performing Organization Address [facility] P morris Number MAIN LAB [address] [place] [phone] * POC GLUCOSE (11/20/2020 11:47 AM CDT) Glucose, POC 231 (H) 70 - 100 MG/DL MAIN LAB Specimen Performing Organization Address City/[facility] Code P morris Number MAIN LAB [address] [place] [address] * POC GLUCOSE (11/20/2020 8:24 AM CDT) Glucose, POC 129 (H) 70 - 100 MG/DL [facility] MAIN LAB Specimen Performing Organization Address [facility]/ZIP Code P morris Number MAIN LAB [address] [place] [address] * POC GLUCOSE (11/20/2020 6:24 AM CDT) Glucose, POC 137 (H) 70 - 100 MG/DL MAIN LAB Specimen Performing Organization Address [facility] P morris Number MAIN LAB [address] [place] [address] * POC GLUCOSE (11/20/2020 5:26 AM CDT) Glucose, POC 147 (H) 70 - 100 MG/DL MAIN LAB Specimen Performing Organization Address [facility] P morris Number MAIN LAB [address] [place] [address] * POC GLUCOSE (11/20/2020 4:24 AM CDT) Glucose, POC 159 (H) 70 - 100 MG/DL MAIN LAB Specimen Performing Organization Address [facility] Code P morris Number MAIN LAB [address] [place] [address] * POC GLUCOSE (11/20/2020 3:22 AM CDT) Glucose, POC 185 (H) 70 - 100 MG/DL MAIN LAB Specimen Performing Organization Address [facility] Code P morris Number MAIN LAB [address] [place] [address] * PHOSPHORUS CELLULAR THERAPEUTICS (11/20/2020 2:27 AM CDT) Phosphorus 4.7 (H) 2.0 - 4.5 MG/DL MAIN LAB Specimen Blood Performing Organization Address [facility] P morris Number MAIN LAB [address] [place] [address] * MAGNESIUM CELLULAR THERAPEUTICS (11/20/2020 2:27 AM CDT) Magnesium 1.7 1.6 - 2.6 mg/dL [facility] MAIN LAB Specimen Blood Performing Organization Address City/[facility]/ZIP Code P morris Number [facility] MAIN LAB [address] [place] [address] * COMPREHENSIVE METABOLIC PANEL (11/20/2020 2:27 AM CDT) [facility] Sodium 139 137 - 147 MMOL/L [facility] MAIN LAB Potassium 3.6 3.5 - 5.1 MMOL/L [facility] MAIN LAB Chloride 99 98 - 110 MMOL/L [facility] MAIN [facility] Glucose 136 (H) 70 - 100 MG/DL [facility] MAIN LAB Blood Urea 22 7 - 25 MG/DL [facility] MAIN [facility] Nitrogen Creatinine 0.78 0.4 - 1.00 MG/DL [facility] MAIN LAB Calcium 8.8 8.5 - 10.6 MG/DL [facility] MAIN [facility] Total Protein 6.5 6.0 - 8.0 G/DL [facility] MAIN LAB Total Bilirubin 0.4 0.3 - 1.2 MG/DL [facility] MAIN [facility] Albumin 3.5 3.5 - 5.0 G/DL [facility] MAIN [facility] Alk Phosphatase 92 25 - 110 U/L [facility] MAIN LAB AST (SGOT) 32 7 - 40 U/L [facility] MAIN [facility] CO2 29 21 - 30 MMOL/L [facility] MAIN [facility] ALT (SGPT) 45 7 - 56 U/L [facility] MAIN [facility] Anion Gap 11 3 - 12 [facility] MAIN LAB eGFR Non >60 >60 mL/min [facility] MAIN LAB Comment: [place] The eGFR is not validated f or use in drug dosing adjustments. Continue to use estimated creatinine clearance per dosing reference text. Please contact the Clinical Pharmacist for questions. eGFR >60 >60 mL/min [facility] MAIN LAB [place] Comment: The eGFR is not validated for use in drug dosing adjustments. Continue to use estimated creatinine clearance per dosing reference text. Please contact the Clinical Pharmacist for questions. Specimen Blood Performing Organization Address City/State/ZIP Code P morris Number [facility] MAIN LAB [address] [place] [address] * CBC AND DIFF (11/20/2020 2:27 AM CDT) Pathologist [facility] White Blood 13.2 (H) 4.5 - 11.0 K/UL [facility] MAIN LAB Cells RBC 3.97 (L) 4.0 - 5.0 M/UL [facility] MAIN [facility] Hemoglobin 11.0 (L) 12.0 - 15.0 GM/DL [facility] MAIN [facility] Hematocrit 34.0 (L) 36 - 45 % [facility] MAIN [facility] MCV 85.8 80 - 100 FL [facility] MAIN [facility] MCH 27.8 26 - 34 PG [facility] MAIN [facility] MCHC 32.4 32.0 - 36.0 G/DL [facility] MAIN [facility] RDW 15.2 (H) 11 - 15 % [facility] MAIN [facility] Platelet Count 262 150 - 400 K/UL [facility] MAIN [facility] MPV 10.3 7 - 11 FL [facility] MAIN [facility] Neutrophils 71 41 - 77 % [facility] Lymphocytes 17 (L) 24 - 44 % [facility] Monocytes 9 4 - 12 % [facility] Eosinophils 2 0 - 5 % [facility] Basophils 1 0 - 2 % [facility] Absolute 9.43 (H) 1.8 - 7.0 K/UL [facility] MAIN [facility] Neutrophil Count Absolute Lymph 2.18 1.0 - 4.8 K/UL [facility] MAIN [facility] Count Absolute 1.16 (H) 0 - 0.80 K/UL [facility] MAIN [facility] Monocyte Count Absolute 0.25 0 - 0.45 K/UL [facility] MAIN [facility] Eosinophil Count Absolute 0.16 0 - 0.20 K/UL [facility] MAIN [facility] Basophil Count Specimen Blood Performing Organization Address City/[facility]/ZIP Code P morris Number [facility] MAIN [facility] [address] [place] [address] * POC GLUCOSE (11/20/2020 2:19 AM CDT) Glucose, POC 131 (H) 70 - 100 MG/DL [facility] MAIN [facility] Specimen Performing Organization Address [facility] P morris Number [facility] MAIN [facility] [address] [place] [address] * POC GLUCOSE (11/20/2020 1:04 AM CDT) Glucose, POC 153 (H) 70 - 100 MG/DL [facility] MAIN [facility] Specimen Performing Organization Address City/[facility]/ZIP Code P morris Number [facility] MAIN [facility] [address] [place] [address] * POC GLUCOSE (11/20/2020 12:05 AM CDT) Glucose, POC 149 (H) 70 - 100 MG/DL [facility] MAIN [facility] Specimen Performing Organization Address [facility] Code P morris Number [facility] MAIN [facility] [address] [place] [address] * POC GLUCOSE (11/19/2020 11:01 PM CDT) Glucose, POC 110 (H) 70 - 100 MG/DL MAIN LAB Specimen Performing Organization Address City/[facility]/ZIP Code P morris Number MAIN LAB [address] [place] [address] * TROPONIN-I (11/19/2020 11:00 PM CDT) Troponin-I 0.10 (H) 0.0 - 0.05 NG/ML MAIN LAB Specimen Blood Performing Organization Address City/[facility]/ZIP Code P morris Number MAIN LAB [address] [place] [address] * POC GLUCOSE (11/19/2020 10:06 PM CDT) Glucose, POC 156 (H) 70 - 100 MG/DL MAIN LAB Specimen Performing Organization Address City/[facility] Code P morris Number MAIN LAB [address] [place] [address] * POC GLUCOSE (11/19/2020 9:12 PM CDT) Glucose, POC 234 (H) 70 - 100 MG/DL MAIN LAB Specimen Performing Organization Address [facility] Code P morris Number MAIN LAB [address] [place] [address] * POC GLUCOSE (11/19/2020 8:04 PM CDT) Glucose, POC 231 (H) 70 - 100 MG/DL MAIN LAB Specimen Performing Organization Address [facility] Code P morris Number MAIN LAB [address] [place] [address] * POC GLUCOSE (11/19/2020 6:14 PM CDT) Glucose, POC 230 (H) 70 - 100 MG/DL MAIN LAB Specimen Performing Organization Address City/[facility] Code P morris Number MAIN LAB [address] [place] [address] * TROPONIN-I (11/19/2020 5:13 PM CDT) Troponin-I 0.11 (H) 0.0 - 0.05 NG/ML MAIN LAB Specimen Blood Performing Organization Address City/[facility]/ZIP Code P morris Number MAIN LAB [address] [place] [address] * POC GLUCOSE (11/19/2020 4:22 PM CDT) Glucose, POC 237 (H) 70 - 100 MG/DL [facility] MAIN [facility] Specimen Performing Organization Address City/[facility] Code P morris Number [facility] MAIN [facility] [address] [place] [address] * POC GLUCOSE (11/19/2020 1:55 PM CDT) Glucose, POC 310 (H) 70 - 100 MG/DL [facility] MAIN [facility] Specimen Performing Organization Address City/[facility]/ZIP Code P morris Number MAIN LAB [address] [place] [address] * POC GLUCOSE (11/19/2020 11:40 AM CDT) Glucose, POC 251 (H) 70 - 100 MG/DL MAIN LAB Specimen Performing Organization Address [facility] Code P morris Number MAIN LAB [address] [place] [address] * POC GLUCOSE (11/19/2020 8:50 AM CDT) Glucose, POC 217 (H) 70 - 100 MG/DL MAIN LAB Specimen Performing Organization Address [facility] Code P morris Number MAIN LAB [address] [place] [address] * POC GLUCOSE (11/19/2020 6:42 AM CDT) Glucose, POC 194 (H) 70 - 100 MG/DL [facility] MAIN [facility] Specimen Performing Organization Address [facility]/ZIP Code P morris Number MAIN LAB [address] [place] [address] * POC GLUCOSE (11/19/2020 4:32 AM CDT) Glucose, POC 165 (H) 70 - 100 MG/DL MAIN LAB Specimen Performing Organization Address City/[facility]/ZIP Code P morris Number MAIN LAB [address] [place] [address] * PHOSPHORUS CELLULAR THERAPEUTICS (11/19/2020 4:00 AM CDT) Phosphorus 4.2 2.0 - 4.5 MG/DL MAIN LAB Specimen Blood Performing Organization Address City/[facility]/ZIP Code P morris Number MAIN LAB [address] [place] [address] * MAGNESIUM CELLULAR THERAPEUTICS (11/19/2020 4:00 AM CDT) Pathologist [facility] Magnesium 1.8 1.6 - 2.6 mg/dL [facility] MAIN LAB Specimen Blood Performing Organization Address City/[facility]/ZIP Code P morris Number [facility] MAIN [facility] [address] [place] [address] * COMPREHENSIVE METABOLIC PANEL (11/19/2020 4:00 AM CDT) Pathologist [facility] Sodium 144 137 - 147 MMOL/L [facility] MAIN LAB Potassium 3.6 3.5 - 5.1 MMOL/L [facility] MAIN [facility] Chloride 105 98 - 110 MMOL/L [facility] MAIN [facility] Glucose 154 (H) 70 - 100 MG/DL [facility] MAIN [facility] Blood Urea 32 (H) 7 - 25 MG/DL [facility] MAIN [facility] Nitrogen Creatinine 0.75 0.4 - 1.00 MG/DL [facility] MAIN [facility] Calcium 8.7 8.5 - 10.6 MG/DL [facility] MAIN [facility] Total Protein 6.0 6.0 - 8.0 G/DL [facility] MAIN [facility] Total Bilirubin 0.4 0.3 - 1.2 MG/DL [facility] MAIN [facility] Albumin 3.4 (L) 3.5 - 5.0 G/DL [facility] MAIN [facility] Alk Phosphatase 83 25 - 110 U/L [facility] MAIN [facility] AST (SGOT) 40 7 - 40 U/L [facility] MAIN [facility] CO2 26 21 - 30 MMOL/L [facility] MAIN [facility] ALT (SGPT) 51 7 - 56 U/L [facility] Anion Gap 13 (H) 3 - 12 [facility] MAIN LAB eGFR Non >60 >60 mL/min [facility] MAIN [facility] Comment: [place] The eGFR is not validated f or use in drug dosing adjustments. Continue to use estimated creatinine clearance per dosing reference text. Please contact the Clinical Pharmacist for questions. eGFR >60 >60 mL/min [facility]IN [facility] [place] Comment: The eGFR is not validated for use in drug dosing adjustments. Continue to use estimated creatinine clearance per dosing reference text. Please contact the Clinical Pharmacist for questions. Specimen Blood Performing Organization Address City/State/ZIP Code P morris Number [facility] MAIN [facility] [address] [place] [address] * CBC AND DIFF (11/19/2020 4:00 AM CDT) Pathologist [facility] White Blood 14.5 (H) 4.5 - 11.0 K/UL [facility] MAIN [facility] Cells RBC 3.91 (L) 4.0 - 5.0 M/UL [facility] Hemoglobin 11.0 (L) 12.0 - 15.0 GM/DL [facility] MAIN [facility] Hematocrit 34.2 (L) 36 - 45 % [facility] MCV 87.6 80 - 100 FL [facility] MAIN [facility] MCH 28.2 26 - 34 PG [facility] MCHC 32.2 32.0 - 36.0 G/DL [facility] RDW 15.5 (H) 11 - 15 % [facility] Platelet Count 245 150 - 400 K/UL [facility] MPV 10.3 7 - 11 FL [facility] Neutrophils 75 41 - 77 % [facility] Lymphocytes 15 (L) 24 - 44 % [facility] Monocytes 8 4 - 12 % [facility] Eosinophils 1 0 - 5 % [facility] Basophils 1 0 - 2 % [facility] Absolute 11.10 (H) 1.8 - 7.0 K/UL [facility]IN [facility] Neutrophil Count Absolute Lymph 2.10 1.0 - 4.8 K/UL [facility] Count Absolute 1.10 (H) 0 - 0.80 K/UL [facility] Monocyte Count Absolute 0.10 0 - 0.45 K/UL [facility] Eosinophil Count Absolute 0.10 0 - 0.20 K/UL [facility] Basophil Count Specimen Blood Performing Organization Address City/[facility]/ZIP Code P morris Number [facility] MAIN [facility] [address] [place] [address] * POC GLUCOSE (11/19/2020 12:48 AM CDT) Glucose, POC 140 (H) 70 - 100 MG/DL [facility]IN [facility] Specimen Performing Organization Address City/[facility]/ZIP Code P morris Number [facility] MAIN [facility] [address] [place] [address] * POC GLUCOSE (11/19/2020 12:06 AM CDT) Glucose, POC 110 (H) 70 - 100 MG/DL MAIN LAB Specimen Performing Organization Address City/[facility] Code P morris Number [facility] MAIN [facility] [address] [place] [id number] * POC GLUCOSE (11/18/2020 10:43 PM CDT) Glucose, POC 104 (H) 70 - 100 MG/DL MAIN LAB Specimen Performing Organization Address City/[facility]/ZIP Code P morris Number MAIN LAB [address] [place] [address] * POC GLUCOSE (11/18/2020 10:06 PM CDT) Glucose, POC 108 (H) 70 - 100 MG/DL [facility]IN [facility] Specimen Performing Organization Address City/[facility] [place]/ZIP Code P morris Number MAIN LAB [address] [place] [address] * POC GLUCOSE (11/18/2020 9:10 PM CDT) Glucose, POC 141 (H) 70 - 100 MG/DL MAIN LAB Specimen Performing Organization Address City/[facility]/ZIP Code P morris Number MAIN LAB [address] [place] [address] * POC GLUCOSE (11/18/2020 7:55 PM CDT) Glucose, POC 147 (H) 70 - 100 MG/DL MAIN LAB Specimen Performing Organization Address [facility] Code P morris Number MAIN LAB [address] [place] [address] * POC GLUCOSE (11/18/2020 6:50 PM CDT) Glucose, POC 134 (H) 70 - 100 MG/DL MAIN LAB Specimen Performing Organization Address City/[facility]/ZIP Code P morris Number MAIN LAB [address] [place] [address] * POC GLUCOSE (11/18/2020 5:35 PM CDT) Glucose, POC 103 (H) 70 - 100 MG/DL MAIN LAB Specimen Performing Organization Address City/[facility]/ZIP Code P morris Number MAIN LAB [address] [place] [address] * POC GLUCOSE (11/18/2020 5:14 PM CDT) Glucose, POC 80 70 - 100 MG/DL MAIN LAB Specimen Performing Organization Address [facility]/ZIP Code P morris Number MAIN LAB [address] [place] [address] * POC GLUCOSE (11/18/2020 4:56 PM CDT) Glucose, POC 88 70 - 100 MG/DL MAIN LAB Specimen Performing Organization Address [facility] Code P morris Number KU MAIN LAB [address] [place] [address] * POC GLUCOSE (11/18/2020 4:07 PM CDT) Glucose, POC 106 (H) 70 - 100 MG/DL KU MAIN LAB Specimen Performing Organization Address [facility] Code P morris Number KU MAIN LAB [address] [place] [address] * POC GLUCOSE (11/18/2020 2:54 PM CDT) Glucose, POC 123 (H) 70 - 100 MG/DL KU MAIN LAB Specimen Performing Organization Address [facility] Code P morris Number KU MAIN LAB [address] [place] [address] * POC GLUCOSE (11/18/2020 1:54 PM CDT) Glucose, POC 135 (H) 70 - 100 MG/DL KU MAIN LAB Specimen Performing Organization Address [facility] P morris Number KU MAIN LAB [address] [place] [address] * POC GLUCOSE (11/18/2020 12:43 PM CDT) Glucose, POC 160 (H) 70 - 100 MG/DL KU MAIN LAB Specimen Performing Organization Address [facility] Code P morris Number KU MAIN LAB [address] [place] [address] * MAGNESIUM (11/18/2020 12:15 PM CDT) Magnesium 2.0 1.6 - 2.6 mg/dL MAIN LAB Specimen Blood Performing Organization Address [facility] P morris Number MAIN LAB [address] [place] [address] * BASIC METABOLIC PANEL (11/18/2020 12:15 PM [...] Urea 30 (H) 7 - 25 MG/DL MAIN LAB Nitrogen Creatinine 0.77 0.4 - 1.00 MG/DL MAIN LAB Calcium 8.4 (L) 8.5 - 10.6 MG/DL MAIN LAB eGFR Non >60 >60 mL/min MAIN LAB Comment: [place] The eGFR is not validated f or use in drug dosing adjustments. Continue to use estimated creatinine clearance per dosing reference text. Please contact the Clinical Pharmacist for questions. eGFR >60 >60 mL/min MAIN LAB [place] Comment: The eGFR is not validated for use in drug dosing adjustments. Continue to use estimated creatinine clearance per dosing reference text. Please contact the Clinical Pharmacist for questions. Specimen Blood Performing Organization Address City/[facility]/ZIP Code P morris Number MAIN LAB [address] [place] [id number] * POC GLUCOSE (11/18/2020 11:42 AM CDT) Glucose, POC 104 (H) 70 - 100 MG/DL MAIN LAB Specimen Performing Organization Address [facility] P morris Number MAIN LAB [address] [place] [id number] * POC GLUCOSE (11/18/2020 11:19 AM CDT) Glucose, POC 82 70 - 100 MG/DL MAIN LAB Specimen Performing Organization Address [facility] P morris Number MAIN LAB [address] [place] [address] * POC GLUCOSE (11/18/2020 10:52 AM CDT) Glucose, POC 90 70 - 100 MG/DL KU MAIN LAB Specimen Performing Organization Address [facility] P morris Number MAIN LAB [address] [place] [address] * POC GLUCOSE (11/18/2020 9:52 AM CDT) Glucose, POC 130 (H) 70 - 100 MG/DL MAIN LAB Specimen Performing Organization Address [facility] P morris Number MAIN LAB [address] [place] [address] * POC GLUCOSE (11/18/2020 8:28 AM CDT) Glucose, POC 155 (H) 70 - 100 MG/DL KU MAIN LAB Specimen Performing Organization Address City/[facility] Code P morris Number MAIN LAB [address] [place] [address] * POC GLUCOSE (11/18/2020 7:44 AM CDT) Glucose, POC 178 (H) 70 - 100 MG/DL KU MAIN LAB Specimen Performing Organization Address [facility] Code P morris Number MAIN LAB [address] [place] [address] * POC GLUCOSE (11/18/2020 6:40 AM CDT) Glucose, POC 234 (H) 70 - 100 MG/DL MAIN LAB Specimen Performing Organization Address [facility]/ZIP Code P morris Number MAIN LAB [address] [place] [address] * POC GLUCOSE (11/18/2020 6:10 AM CDT) Glucose, POC 200 (H) 70 - 100 MG/DL MAIN LAB Specimen Performing Organization Address [facility] P morris Number MAIN LAB [address] [place] [address] * POC GLUCOSE (11/18/2020 4:59 AM CDT) Glucose, POC 193 (H) 70 - 100 MG/DL MAIN LAB Specimen Performing Organization Address [facility] Code P morris Number MAIN LAB [address] [place] [address] * POC GLUCOSE (11/18/2020 4:14 AM CDT) Glucose, POC 196 (H) 70 - 100 MG/DL MAIN LAB Specimen Performing Organization Address [facility] Code P morris Number MAIN LAB [address] [place] [address] * TROPONIN-I (11/18/2020 2:58 AM CDT) Troponin-I 0.27 (H) 0.0 - 0.05 NG/ML MAIN LAB Specimen Blood Performing Organization Address [facility] Code P morris Number MAIN LAB [address] [place] [address] * PHOSPHORUS CELLULAR THERAPEUTICS (11/18/2020 2:58 AM CDT) Phosphorus 3.7 2.0 - 4.5 MG/DL KU MAIN LAB Specimen Blood Performing Organization Address City/[facility]/ZIP Code P morris Number KU MAIN LAB [address] [place] [address] * MAGNESIUM CELLULAR THERAPEUTICS (11/18/2020 2:58 AM CDT) Magnesium 1.6 1.6 - 2.6 mg/dL KU MAIN LAB Specimen Blood Performing Organization Address City/[facility]/ZIP Code P morris Number KU MAIN LAB [address] [place] [address] * COMPREHENSIVE METABOLIC PANEL (11/18/2020 2:58 AM CDT) Sodium 145 137 - 147 MMOL/L KU MAIN LAB Potassium 3.4 (L) 3.5 - 5.1 MMOL/L K[facility] MAIN LAB Chloride 105 98 - 110 MMOL/L KU MAIN LAB Glucose 269 (H) 70 - 100 MG/DL KU MAIN LAB Blood Urea 31 (H) 7 - 25 MG/DL K[facility] MAIN LAB Nitrogen Creatinine 1.00 0.4 - 1.00 MG/DL K[facility] MAIN LAB Calcium 9.1 8.5 - 10.6 MG/DL K[facility] MAIN LAB Total Protein 6.3 6.0 - 8.0 G/DL K[facility] MAIN LAB Total Bilirubin 0.3 0.3 - 1.2 MG/DL K[facility] MAIN LAB Albumin 3.6 3.5 - 5.0 G/DL K[facility] MAIN LAB Alk Phosphatase 97 25 - 110 U/L [facility] MAIN LAB AST (SGOT) 41 (H) 7 - 40 U/L [facility] MAIN LAB CO2 27 21 - 30 MMOL/L K[facility] MAIN LAB ALT (SGPT) 69 (H) 7 - 56 U/L [facility] MAIN LAB Anion Gap 13 (H) 3 - 12 K[facility] MAIN LAB eGFR Non 56 (L) >60 mL/min K[facility] MAIN LAB Comment: [place] The eGFR is not validated f or use in drug dosing adjustments. Continue to use estimated creatinine clearance per dosing reference text. Please contact the Clinical Pharmacist for questions. eGFR >60 >60 mL/min KU MAIN LAB [place] Comment: The eGFR is not validated for use in drug dosing adjustments. Continue to use estimated creatinine clearance per dosing reference text. Please contact the Clinical Pharmacist for questions. Specimen Blood Performing Organization Address City/[facility]/ZIP Code P morris Number KU MAIN LAB [address] [place] [address] * CBC AND DIFF (11/18/2020 2:58 AM CDT) White Blood 20.4 (H) 4.5 - 11.0 K/UL KU MAIN LAB Cells RBC 3.99 (L) 4.0 - 5.0 M/UL K[facility] MAIN LAB Hemoglobin 11.3 (L) 12.0 - 15.0 GM/DL KU MAIN LAB Hematocrit 33.9 (L) 36 - 45 % K[facility] MAIN LAB MCV 84.9 80 - 100 FL KU MAIN LAB MCH 28.4 26 - 34 PG KU MAIN LAB MCHC 33.4 32.0 - 36.0 G/DL KU MAIN LAB RDW 15.2 (H) 11 - 15 % K[facility] MAIN LAB Platelet Count 307 150 - 400 K/UL K[facility] MAIN LAB MPV 9.8 7 - 11 FL K[facility] MAIN LAB Neutrophils 84 (H) 41 - 77 % [facility] MAIN LAB Lymphocytes 6 (L) 24 - 44 % [facility] MAIN LAB Monocytes 10 4 - 12 % [facility] MAIN LAB Eosinophils 0 0 - 5 % [facility] MAIN LAB Basophils 0 0 - 2 % [facility] MAIN LAB Absolute 16.97 (H) 1.8 - 7.0 K/UL K[facility] MAIN LAB Neutrophil Count Absolute Lymph 1.29 1.0 - 4.8 K/UL [facility] MAIN LAB Count Absolute 2.04 (H) 0 - 0.80 K/UL [facility] MAIN LAB Monocyte Count Absolute 0.01 0 - 0.45 K/UL [facility] MAIN LAB Eosinophil Count Absolute 0.08 0 - 0.20 K/UL [facility] MAIN LAB Basophil Count Specimen Blood Performing Organization Address City/[facility]/ZIP Code P morris Number KU MAIN LAB [address] [place] [phone] * POC GLUCOSE (11/18/2020 2:57 AM CDT) Glucose, POC 241 (H) 70 - 100 MG/DL K[facility] MAIN LAB Specimen Performing Organization Address City/[facility]/ZIP Code P morris Number K[facility] MAIN LAB [address] [place] [address] * POC GLUCOSE (11/18/2020 2:55 AM CDT) Glucose, POC 251 (H) 70 - 100 MG/DL K[facility] MAIN LAB Specimen Performing Organization Address City/[facility]/ZIP Code P morris Number KU MAIN LAB [address] [place] [phone] * POC GLUCOSE (11/18/2020 1:43 AM CDT) Glucose, POC 235 (H) 70 - 100 MG/DL [facility] MAIN LAB Specimen Performing Organization Address [facility] Code P morris Number KU MAIN LAB [address] [place] [address] * POC GLUCOSE (11/18/2020 12:44 AM CDT) Glucose, POC 270 (H) 70 - 100 MG/DL [facility] MAIN LAB Specimen Performing Organization Address [facility] Code P morris Number KU MAIN LAB [address] [place] [address] * POC GLUCOSE (11/17/2020 11:51 PM CDT) Glucose, POC 285 (H) 70 - 100 MG/DL [facility] MAIN LAB Specimen Performing Organization Address [facility] P morris Number KU MAIN LAB [address] [place] [address] * POC GLUCOSE (11/17/2020 10:40 PM CDT) Glucose, POC 336 (H) 70 - 100 MG/DL K[facility] MAIN LAB Specimen Performing Organization Address [facility] Code P morris Number KU MAIN LAB [address] [place] [phone] * TROPONIN-I (11/17/2020 10:00 PM CDT) Troponin-I 0.35 (H) 0.0 - 0.05 NG/ML KU MAIN LAB Specimen Performing Organization Address [facility] P morris Number KU MAIN LAB [address] [place] [address] * CBC (11/17/2020 10:00 PM CDT) White Blood 20.6 (H) 4.5 - 11.0 K/UL K[facility] MAIN LAB Cells RBC 4.30 4.0 - 5.0 M/UL MAIN LAB Hemoglobin 12.2 12.0 - 15.0 GM/DL MAIN LAB Hematocrit 35.9 (L) 36 - 45 % K[facility] MAIN LAB MCV 83.5 80 - 100 FL K[facility] MAIN LAB MCH 28.4 26 - 34 PG MAIN LAB MCHC 34.0 32.0 - 36.0 G/DL [facility] MAIN LAB RDW 15.3 (H) 11 - 15 % [facility] MAIN LAB Platelet Count 356 150 - 400 K/UL [facility] MAIN LAB MPV 9.9 7 - 11 FL K[facility] MAIN LAB Specimen Blood Performing Organization Address City/[facility]/ZIP Code P morris Number KU MAIN LAB [address] [place] [address] * POC GLUCOSE (11/17/2020 9:54 PM CDT) Glucose, POC 334 (H) 70 - 100 MG/DL K[facility] MAIN LAB Specimen Performing Organization Address City/[facility]/ZIP Code P morris Number KU MAIN LAB [address] [place] [address] * POC GLUCOSE (11/17/2020 9:07 PM CDT) Glucose, POC 350 (H) 70 - 100 MG/DL MAIN LAB Specimen Performing Organization Address [facility] P morris Number MAIN LAB [address] [place] [address] * POC GLUCOSE (11/17/2020 7:54 PM CDT) Glucose, POC 387 (H) 70 - 100 MG/DL MAIN LAB Specimen Performing Organization Address [facility] Code P morris Number MAIN LAB [address] [place] [address] * TROPONIN-I (11/17/2020 7:53 PM CDT) Troponin-I 0.32 (H) 0.0 - 0.05 NG/ML MAIN LAB Specimen Blood Performing Organization Address [facility] Code P morris Number MAIN LAB [address] [place] [address] * POC GLUCOSE (11/17/2020 7:18 PM CDT) Glucose, POC 451 (H) 70 - 100 MG/DL K[facility] MAIN LAB Specimen Performing Organization Address [facility] Code P morris Number MAIN LAB [address] [place] [address] * POC GLUCOSE (11/17/2020 6:35 PM CDT) Glucose, POC 443 (H) 70 - 100 MG/DL K[facility] MAIN LAB Specimen Performing Organization Address [facility]/ZIP Code P morris Number KU MAIN LAB [address] [place] [address] * POC GLUCOSE (11/17/2020 5:22 PM CDT) Glucose, POC 460 (H) 70 - 100 MG/DL [facility] Specimen Performing Organization Address City/State/ZIP Code P morris Number [facility] [address] [place] [address] * CYTOLOGY BRONCH LAVAGE (11/17/2020 3:46 PM CDT) Pathologist [facility] Cytology [facility] [email or web address] Department of Pathology and Laboratory Medicine [address] [place] [address] Surgical Pathology Office: [phone] CYTOLOGY REPORT NAME: CAMILA CALDWELL CYTOLOGY #: [id number] MR #: [id number] ALT ID #: BILLING #: [id number] LOCATION: [facility] DATE OF PROCEDURE: 11/17/2020 AGE: 64 SEX: F DATE RECEIVED: 11/18/2020 : 1955 TIME RECEIVED: 09:54 PHYSICIAN: JOY PETERSON MD DATE OF REPORT: 11/19/2020 COPY TO: [...] in this report. +++Electronically Signed Out By+++ ofeliaw/11/19/2020 Interpreted by: MD Gerry Joy MD, Fellow Specimen Bronchial Alveolar Lavage,TANYA Performing Organization Address City/State/ZIP Code P morris Number MAIN LAB [address] [place] [address] * FUNGITELL (11/17/2020 3:37 PM CDT) [facility] See Comment REFERENCE LAB Reference range: <80 Unit: pg/mL . RESULTS OF FUNGITELL INCONCLUSIVE DUE TO THE PRESENCE OF HEMOLYSIS. PLEASE SUBMIT ANOTHER SPECIMEN FOR TESTING. PLEASE CONTACT [facility] WITH QUESTIONS. . Interpretation: The Fungitell assay does not detect certain fungal species such as the genus Cryptococcus (Jeff et al. 1991) which produces very low levels of (1-3)-Nlaa-K-Lmycry. The assay also does not detect the Zygomycetes such as Absidia, Mucor and Rhizopus (Edd et al. 1994) which are not known to produce (1-3)-Sbqz-W-Xfsalp. In addition, the yeast phase of Blastomyces dermatitidis produces little (1-3)-Qlkt-L-Ogdnmm and may not be detected by the [...] characteristics for these modifications were determined by [facility]. . If sample result is greater than 500 pg/mL, physician may order a titer of the sample. Please contact [facility] if you would like to order a retest of this sample to obtain an actual value. Samples are held for 1 week after initial testing date. Testing Performed At: [facility] [address] [place] [address] Product Marketing Executive: Binh Schwartz Ph.D., BCLD (ABB) CLIA#: [id number] Phone: Specimen Blood Performing Organization Address City/State/ZIP Code P morris Number REFERENCE LAB REFERENCE LAB See results for address. * CBC (11/17/2020 3:37 PM CDT) Pathologist [facility] White Blood 20.3 (H) 4.5 - 11.0 K/UL K[facility] MAIN LAB Cells RBC 4.52 4.0 - 5.0 M/UL [facility] MAIN LAB Hemoglobin 12.8 12.0 - 15.0 GM/DL [facility] MAIN LAB Hematocrit 37.9 36 - 45 % [facility] MAIN LAB MCV 83.9 80 - 100 FL K[facility] MAIN LAB MCH 28.4 26 - 34 PG [facility] MAIN LAB MCHC 33.9 32.0 - 36.0 G/DL [facility] MAIN LAB RDW 15.7 (H) 11 - 15 % [facility] MAIN LAB Platelet Count 398 150 - 400 K/UL [facility] MAIN LAB MPV 10.5 7 - 11 FL [facility] MAIN LAB Specimen Blood Performing Organization Address City/[facility]/ZIP Code P morris Number KU MAIN LAB [address] [place] [address] * TROPONIN-I (11/17/2020 3:37 PM CDT) Pathologist [facility] Troponin-I 0.27 (H) 0.0 - 0.05 NG/ML K[facility] MAIN LAB Specimen Blood Performing Organization Address City/[facility]/ZIP Code P morris Number KU MAIN LAB [address] [place] [address] * GRAM STAIN (11/17/2020 3:32 PM CDT) Pathologist [facility] Battery Name GRAM STAIN KU MAIN LAB Report Status FINAL 11/18/2020 KU MAIN LAB Specimen BRONCHIAL ALVEOLAR LAVAGE LUNG KU NAHOMI N LAB Description TANYA Special NONE KU MAIN LAB Requests Gram Stain 10-25/LPF MAIN LAB NEUTROPHILS Gram Stain MANY MAIN LAB RBC'S Gram Stain RARE [facility] GRAM POSITIVE COCCI RESEMBLING STAPHYLOCOCCI Specimen Bronchial Alveolar Lavage - Lung TANYA Performing Organization Address City/State/ZIP Code P morris Number YAMEL MAIN LAB [address] [place] [address] * CULTURE-FUNGAL,OTHER (11/17/2020 3:32 PM CDT) Battery Name FUNGUS CULTURE MAIN LAB Report Status FINAL 12/22/2020 MAIN LAB Specimen BRONCHIAL ALVEOLAR LAVAGE LUNG KU NAHOMI N LAB Description TANYA Special NONE MAIN LAB Requests Culture NO GROWTH OF FUNGUS AT 4 WEEKS KU NAHOMI N LAB Specimen Bronchial Alveolar Lavage - Lung TANYA Performing Organization Address City/State/ZIP Code P morris Number MAIN LAB [address] [place] [address] * RVP VIRAL PANEL PCR (11/17/2020 3:32 PM CDT) Specimen Source NASOPHARYNGEAL [facility] This panel does not detect SARS-CoV-2, the etiologic agent of COVID-19. Contact Infection Control for testing of patients with suspected SARS-CoV-2 infection. This assay uses analyte specific reagents and has not been cleared by the [place] Food and Drug Administration. The performance characterics were determined by the [facility]. Adenovirus NOT DETECTED DN-NOT DETECTED [facility] Coronavirus NOT DETECTED DN-NOT DETECTED [facility] 229E Coronavirus NOT DETECTED DN-NOT DETECTED [facility] HKU1 Coronavirus NOT DETECTED DN-NOT DETECTED [facility] NL63 Coronavirus NOT DETECTED DN-NOT DETECTED [facility] OC43 Human NOT DETECTED DN-NOT DETECTED [facility] Metapneumovirus Human NOT DETECTED DN-NOT DETECTED [facility] Rhinovirus/ENTE ROVIRUS Influenza A NOT DETECTED DN-NOT DETECTED [facility] H1N1 2009 Influenza A H1 NOT DETECTED DN-NOT DETECTED [facility] Influenza A H3 NOT DETECTED DN-NOT DETECTED [facility] Influenza B NOT DETECTED DN-NOT DETECTED [facility] Parainfluenza 1 NOT DETECTED DN-NOT DETECTED [facility] Parainfluenza 2 NOT DETECTED DN-NOT DETECTED [facility] Parainfluenza 3 NOT DETECTED DN-NOT DETECTED [facility] Parainfluenza 4 NOT DETECTED DN-NOT DETECTED [facility] RSV NOT DETECTED DN-NOT DETECTED [facility] MAIN LAB Bordetella NOT DETECTED DN-NOT DETECTED [facility] MAIN LAB Pertussis Chlamydophila NOT DETECTED DN-NOT DETECTED [facility] MAIN LAB Pneumoniae Mycoplasma NOT DETECTED DN-NOT DETECTED [facility] MAIN LAB Pneumoniae Specimen Bronchial Alveolar Lavage Performing Organization Address City/State/ZIP Code P morris Number K[facility] MAIN LAB [address] [place] [address] * PJP JIROVECI QUANT PCR (11/17/2020 3:32 [...] developed and its performance characteristics determined by [employer]. It has not been cleared or approved by the [place].S. Food and Drug Administration. Results should be used in conjunction with clinical findings, and should not form the sole basis for a diagnosis or treatment decision. Testing Performed At: [facility] [address] [place] [address] Product Marketing Executive: Binh Schwartz Ph.D., BCLD (ABB) CLIA#: [id number] Phone: Specimen Bronchial Washing TANYA Performing Organization Address City/State/ZIP Code P morris Number REFERENCE LAB REFERENCE LAB See results for address. * ASPERGILLUS GALACTOMANN (11/17/2020 3:32 PM CDT) Aspergillus 0.089 REFERENCE LAB Galactomann BAL Comment: [...] Aspergillus Galactomannan EIA is a product of [employer] and is FDA approved for in vitro diagnostic use. Testing Performed At: [facility] [address] [place] [address] Product Marketing Executive: Binh Schwartz Ph.D., BCLD (ABB) CLIA#: [id number] Phone: Specimen Bronchial Washing TANYA Performing Organization Address City/State/ZIP Code P morris Number REFERENCE LAB REFERENCE LAB See results for address. * CELL COUNT W/DIFF-FLUIDS (11/17/2020 3:32 PM CDT) Segmented 79 % K[facility] MAIN LAB Neutrophils, Fluid Lymphocytes,Flu 2 % [facility] MAIN LAB id Monocyte/Histo, 19 % [facility] MAIN LAB Fluid Fluid Source FLUID K[facility] MAIN LAB BRONCHIAL ALVEOLAR LAVAGE Pathology NEGATIVE FOR MALIGNANT CELLS [facility] MAIN LAB Interpretation, PLEASE ALSO SEE CONCURRENT Fluid CYTOPATHOLOGY REPORT Pathologist INTERPRETED BY PEGGY Fowler LAB Signature M.D. By the PATH SIGNATURE ABOVE, I attest that I have personally formulated the final interpretation expressed in this report and that the above diagnosis is based upon my examination of the slides and/or other material indicated in this report. Specimen Fluid - Bronchial Alveolar Lavage Performing Organization Address City/State/ZIP Code P morris Number [facility] MAIN LAB [address] [place] [address] * HERPES SIMPLEX PCR - NON-BLOOD (11/17/2020 3:32 PM CDT) Specimen, BRONCHIAL ALVEOLAR LAVAGE MAIN LAB Herpes Herpes Simplex INDETERMINATE, POSSIBLE HSVND-HSV 1 and 2 [facility] PCR INTERFERING SUBSTANCE (A) NOT DETECTED Comment: [employer] HSV 1&2 Assay is a qualitative real-time PCR test for the direct detection and differentiation of HSV 1 and 2 DNA. This assay is FDA approved for testing cutaneous or mucocutaneous lesions from symptomatic patients. Performance on modifications of this test as well as other specimen types has been validated by the Department of Pathology and Laboratory Medicine at the [facility]. Specimen Bronchial Alveolar Lavage Performing Organization Address City/[facility]/ZIP Code P morris Number [facility] [address] [place] [address] * CMV QUANT PCR-FLUID (11/17/2020 3:32 PM CDT) Specimen, CMV FLUID [facility] BRONCHIAL ALVEOLAR LAVAGE CMV by CMV DNA NOT DETECTED [facility] PCR-fluid CMV This assay is an off label use [facility] Comment-Fluid of the [employer] y for detection of CMV in fluids and has not been approved by the [place] Food and Drug Administration. The performance characteristics were determined by the [facility]. The lower limit of detection is 50IU/mL. Specimen Fluid - Fluid Performing Organization Address City/[facility]/ZIP Code P morris Number [facility] [address] [place] [address] * CULTURE-RESP,LOWER W/SENSITIVITY (11/17/2020 3:32 PM CDT) Battery Name LOWER RESP CULTURE MAIN LAB Report Status FINAL 11/19/2020 MAIN LAB Specimen BRONCHIAL ALVEOLAR LAVAGE LUNG [facility] N LAB Description TANYA Special NONE MAIN LAB Requests Direct Gram 10-25/LPF MAIN LAB Stain NEUTROPHILS Direct Gram MANY [facility] MAIN LAB Stain RBC'S Direct Gram RARE MAIN LAB Stain GRAM POSITIVE COCCI RESEMBL ING STAPHYLOCOCCI Culture Light growth MAIN LAB STAPHYLOCOCCUS AUREUS (A) Culture Negative for PBP2A, indicating [facility] that isolate is MSSA (A) [...] Staphylococcus aureus Trimethsulfa SURAJ (MCG/ML), INTERPRETATION, PHX <=1/19: Susceptible Staphylococcus aureus Performing Organization Address City/State/ZIP Code P morris Number [facility] MAIN LAB [address] [place] [address] * 2D + DOPPLER ECHO (11/17/2020 3:28 [...] OUTSIDE Systolic Volume LAB Index LVOT peak yanick 1.19 m/s OTHER OUTSIDE LAB LVOT peak [...] cm OTHER OUTSIDE LAB MV Peak A Yanick 0.84 m/s OTHER OUTSIDE LAB MV Peak E Yanick 0.95 m/s OTHER OUTSIDE PW LAB Right 4.11 2.5 - 4.1 cm OTHER OUTSIDE Ventricular LAB Basal Diameter Right Heart 0.11 m/s OTHER OUTSIDE Systolic TDI S' LAB Right Heart 1.93 >1.7 cm OTHER OUTSIDE Systolic Mmode LAB TAPSE Sinus 2.44 2.4 - 3.6 cm OTHER OUTSIDE LAB Ascending aorta 2.54 cm OTHER OUTSIDE LAB BSA 2.17 m2 OTHER OUTSIDE LAB Referring Mamie Arden OTHER OUTSIDE Provider LAB CV ECHO PV Marlenareno Ramirez, ACS OTHER OUTSIDE WAREHOUSE TEAM MEMBER LAB FS 30.00 28 - 44 % OTHER OUTSIDE LAB EF 51.00 % OTHER OUTSIDE LAB LV mass 213 67 - 162 g OTHER OUTSIDE LAB RWT 0.43 <=0.42 OTHER OUTSIDE LAB Aortic valve 1.19 cm2 OTHER OUTSIDE area = LAB AV index 0.44 OTHER OUTSIDE (emmonak) LAB E/A ratio 1.13 OTHER OUTSIDE LAB LVOT area 2.52 cm2 OTHER OUTSIDE LAB LVOT stroke 63.04 cm3 OTHER OUTSIDE volume LAB and a peak 29 mmHg OTHER OUTSIDE gradient of LAB Lateral E/E' 10.56 OTHER OUTSIDE ratio LAB Left Atrium 29.59 16 - 34 OTHER OUTSIDE Index LAB Cardiology Siemens [id number] OTHER OUTSIDE Ultrasound LAB Machine Left Ventricle [...] regurgitation. No pericardial effusion. Performing Organization Address City/State/ZIP Code P morris Number OTHER OUTSIDE LAB * POC GLUCOSE (11/17/2020 2:23 PM CDT) Glucose, POC 469 (H) 70 - 100 MG/DL [facility] MAIN [facility] Specimen Performing Organization Address City/State/ZIP Code P morris Number [facility] MAIN [facility] [address] [place] [address] * BLOOD GASES, ARTERIAL (11/17/2020 2:23 PM CDT) pH-Arterial 7.33 (L) 7.35 - 7.45 [facility] MAIN LAB pCO2-Arterial 55 (H) 35 - 45 MMHG [facility] MAIN LAB pO2-Arterial 101 (H) 80 - 100 MMHG [facility] MAIN LAB Base 1.4 MMOL/L [facility] MAIN [facility] Excess-Arterial O2 Sat-Arterial 95.6 95 - 99 % [facility] MAIN [facility] Bicarbonate-ART 25.6 21 - 28 MMOL/L [facility] MAIN [facility] -Adolfo Specimen Blood, arterial - Blood Performing Organization Address [facility] Code P morris Number [facility] MAIN [facility] [address] [place] [address] * IONIZED CALCIUM (11/17/2020 1:57 PM CDT) Ionized Calcium 1.13 1.0 - 1.3 MMOL/L [facility] MAIN [facility] Specimen Performing Organization Address [facility] P morris Number MAIN LAB [address] [place] [phone] * CULTURE-BLOOD W/SENSITIVITY (11/17/2020 1:30 PM CDT) Battery Name BLOOD CULTURE MAIN LAB Report Status FINAL 11/23/2020 [facility] MAIN [facility] Specimen BLOOD ARM, RIGHT ANTECUBITAL MAIN LAB Description Special NONE MAIN LAB Requests Culture NO GROWTH 5 DAYS [facility] MAIN LAB Specimen Blood - Arm, Right Performing Organization Address [facility] P morris Number MAIN LAB [address] [phone] * LEGIONELLA ANTIGEN URINE,RAN (11/17/2020 12:40 PM CDT) Battery Name LEGIONELLA URINE ANTIGEN MAIN LAB Report Status FINAL 11/17/2020 MAIN LAB Specimen URINE MAIN LAB Description Special NONE MAIN LAB Requests Antigen NEGATIVE MAIN LAB Specimen Urine Performing Organization Address [facility] P morris Number MAIN LAB [address] [phone] * PHENCYCLIDINES-URINE RANDOM (11/17/2020 12:40 PM CDT) Phencyclidine NEG NEG-NEG MAIN LAB (PCP) Comment: RESULTS WERE OBTAINED BY IMMUNOASSAY AND ARE PRESUMPTIVE ONLY. POSITIVE INDICATES THE PRESENCE OF SUBSTANCE WITH CHARACTERISTICS SIMILAR TO DRUG-DRUG CLASS OR METABOLITE IN CONC. EQUAL TO OR EXCEEDING VALUES LISTED. PHENCYCLIDINE (PCP) 25 NG/ML Specimen Urine - Urine Performing Organization Address [facility] P morris Number MAIN LAB [address] [phone] * OPIATES-URINE RANDOM (11/17/2020 12:40 PM CDT) Opiates-Urine NEG NEG-NEG MAIN LAB Comment: RESULTS WERE OBTAINED BY IMMUNOASSAY AND ARE PRESUMPTIVE ONLY. POSITIVE INDICATES THE PRESENCE OF SUBSTANCE WITH CHARACTERISTICS SIMILAR TO DRUG-DRUG CLASS OR METABOLITE IN CONC. EQUAL TO OR EXCEEDING VALUES LISTED. OPIATES 2000 NG/ML Specimen Urine - Urine Performing Organization Address [facility] Code P morris Number MAIN LAB [address] [place] [address] * COCAINE-URINE RANDOM (11/17/2020 12:40 PM CDT) Cocaine-Urine NEG NEG-NEG MAIN LAB Comment: RESULTS WERE OBTAINED BY IMMUNOASSAY AND ARE PRESUMPTIVE ONLY. POSITIVE INDICATES THE PRESENCE OF SUBSTANCE WITH CHARACTERISTICS SIMILAR TO DRUG-DRUG CLASS OR METABOLITE IN CONC. EQUAL TO OR EXCEEDING VALUES LISTED. COCAINE 300 NG/ML Specimen Urine - Urine Performing Organization [facility] P morris Number MAIN LAB [address] [place] [address] * CANNABINOIDS-URINE RANDOM (11/17/2020 12:40 PM CDT) THC NEG NEG-NEG MAIN LAB Comment: RESULTS WERE OBTAINED BY IMMUNOASSAY AND ARE PRESUMPTIVE ONLY. POSITIVE INDICATES THE PRESENCE OF SUBSTANCE WITH CHARACTERISTICS SIMILAR TO DRUG-DRUG CLASS OR METABOLITE IN CONC. EQUAL TO OR EXCEEDING VALUES LISTED. CANNABINOIDS 50 NG/ML Specimen Urine - Urine Performing Organization Address [facility] P morris Number [facility] [address] [place] [address] * BENZODIAZEPINES-URINE RANDOM (11/17/2020 12:40 PM CDT) Benzodiazepines POS (A) NEG-NEG MAIN LAB Comment: RESULTS WERE OBTAINED BY IMMUNOASSAY AND ARE PRESUMPTIVE ONLY. POSITIVE INDICATES THE PRESENCE OF SUBSTANCE WITH CHARACTERISTICS SIMILAR TO DRUG-DRUG CLASS OR METABOLITE IN CONC. EQUAL TO OR EXCEEDING VALUES LISTED. BENZODIAZEPINES 200 NG/ML Specimen Urine - Urine Performing Organization Address [facility] Code P morris Number MAIN LAB [address] [place] [address] * BARBITURATES-URINE RANDOM (11/17/2020 12:40 PM CDT) Barbiturates,Ur NEG NEG-NEG MAIN LAB ine Comment: RESULTS WERE OBTAINED BY IMMUNOASSAY AND ARE PRESUMPTIVE ONLY. POSITIVE INDICATES THE PRESENCE OF SUBSTANCE WITH CHARACTERISTICS SIMILAR TO DRUG-DRUG CLASS OR METABOLITE IN CONC. EQUAL TO OR EXCEEDING VALUES LISTED. BARBITURATES 200 NG/ML Specimen Urine - Urine Performing Organization Address [facility] P morris Number [facility] MAIN [facility] [address] [place] [address] * AMPHETAMINES-URINE RANDOM (11/17/2020 12:40 PM CDT) Pathologist [facility] Amphetamines NEG NEG-NEG MAIN LAB Comment: RESULTS WERE OBTAINED BY IMMUNOASSAY AND ARE PRESUMPTIVE ONLY. POSITIVE INDICATES THE PRESENCE OF SUBSTANCE WITH CHARACTERISTICS SIMILAR TO DRUG-DRUG CLASS OR METABOLITE IN CONC. EQUAL TO OR EXCEEDING VALUES LISTED. AMPHETAMINES 1000 NG/ML Specimen Urine - Urine Performing Organization Address [facility] P morris Number MAIN LAB [address] [place] [address] * MRSA PNEUMONIA SCREEN (11/17/2020 12:40 PM CDT) Pathologist [facility] MRSA Pneumonia NOT DETECTED MAIN LAB PCR The negative predictive robert ue of this assay for MRSA pneumonia is high. Discontinuation of anti-MRSA pneumonia therapy is recommended in patients without additional clinical features that warrant MRSA therapy. Contact infectious Diseases or Antimicrobial Stewardship with questions. Specimen Flocked Swab - Nasal Swab Performing Organization Address [facility] P morris Number MAIN LAB [address] [place] [address] * STREPTOCOCCUS PNEUMO AG, URINE (11/17/2020 12:40 PM CDT) Pathologist [facility] Battery Name STREP PNEUMO AG, UR [facility] MAIN [facility] Report Status FINAL 11/17/2020 [facility] MAIN LAB Specimen URINE MAIN LAB Description Special NONE MAIN LAB Requests Antigen NEGATIVE MAIN LAB Specimen Urine - Urine Performing Organization Address [facility] P morris Number [facility] MAIN [facility] [address] [place] [address] * UA REFLEX LABEL (11/17/2020 12:40 PM CDT) Pathologist [facility] UA Reflex Criteria for reflex to culture [facility] LAB Culture are WBC>10, Positive Nitrit e, and/or >=+1 leukocytes. If quantity is not sufficient, an addendum will follow. Specimen Urine Performing Organization Address [facility]/ZIP Code P morris Number [facility] MAIN [facility] [address] [place] [address] * URINALYSIS MICROSCOPIC REFLEX TO CULTURE (11/17/2020 12:40 PM CDT) WBCs,UA 0-2 0 - 2 /HPF [facility] MAIN [facility] RBCs,UA 0-2 0 - 3 /HPF [facility] Comment,UA Criteria for reflex to culture [facility] are WBC>10, Positive Nitrite, and/or >=+1 leukocytes. If quantity is not sufficient, an addendum will follow. Specimen Urine Performing Organization Address City/[facility] P morris Number [facility] MAIN [facility] [address] [place] [address] * URINALYSIS DIPSTICK REFLEX TO CULTURE (11/17/2020 12:40 PM CDT) Color,UA STRAW [facility] MAIN [facility] Turbidity,UA CLEAR CLEAR-CLEAR [facility] Specific 1.023 1.003 - 1.035 [facility] MAIN [facility] [place]-Urine pH,UA 6.0 5.0 - 8.0 [facility] Protein,UA NEG NEG-NEG [facility] Glucose,UA 3+ (A) NEG-NEG [facility] Ketones,UA TRACE (A) NEG-NEG [facility] Bilirubin,UA NEG NEG-NEG [facility] Blood,UA NEG NEG-NEG [facility] Urobilinogen,UA NORMAL NORM-NORMAL [facility] Nitrite,UA NEG NEG-NEG [facility] Leukocytes,UA NEG NEG-NEG [facility] Urine Ascorbic NEG NEG-NEG [facility]IN [facility] Acid, UA Specimen Urine Performing Organization Address [facility] P morris Number [facility] MAIN [facility] [address] [place] [address] * COVID-19 (SARS-COV-2) PCR (11/17/2020 12:39 PM CDT) COVID-19 FLOCKED SWAB MAIN LAB (SARS-CoV-2) NASOPHARYNGEAL PCR Source COVID-19 NOT DETECTED DN-NOT DETECTED MAIN LAB (SARS-CoV-2) Comment: PCR This assay is [...] performance characteristics have been verified by the [facility] clinical laboratory. Fact sheet for providers: https://www.fda.gov/media/8824 13/download Fact sheet for patients: https://www.fda.gov/media/6903 12/download Specimen Flocked Swab - Nasopharyngeal Performing Organization Address [facility] P morris Number MAIN LAB [address] [place] [address] * HEMOGLOBIN A1C (11/17/2020 11:59 AM CDT) Hemoglobin A1C 10.6 (H) 4.0 - 6.0 % [facility] Comment: The ADA recommends that most patients with type 1 and type 2 diabetes maintain an A1c level <7%. Specimen Performing Organization Address [facility] P morris Number [facility]IN [facility] [address] [place] [address] * AMMONIA (11/17/2020 11:59 AM CDT) Ammonia 54 (H) 9 - 35 MCMOL/L [facility]IN [facility] Specimen Blood Performing Organization Address [facility] P morris Number [facility] [address] [place] [address] * PROCALCITONIN (11/17/2020 11:59 AM CDT) Procalcitonin 0.35 ng/mL [facility]IN [facility] Comment: Suspected Lower Respiratory Tract Infection: >0.25 ng/mL-Increased likeihood bacterial infection Suspected Sepsis: >0.5 ng/mL-Increased likelihood sepsis >2.0 ng/mL-High risk of sepsis/septic shock Specimen Blood Performing Organization Address [facility] P morris Number [facility] [address] [place] [address] * CULTURE-BLOOD W/SENSITIVITY (11/17/2020 11:59 AM CDT) Battery Name BLOOD CULTURE [facility] Report Status FINAL 11/23/2020 [facility] MAIN [facility] Specimen BLOOD WRIST, LEFT [facility] MA[facility] Description Special NONE MAIN LAB Requests Culture NO GROWTH 5 DAYS [facility] MAIN [facility] Specimen Blood - Wrist, Left Performing Organization Address City/[facility]/ZIP Code P morris Number MAIN LAB [address] [place] [address] * TSH WITH FREE T4 REFLEX (11/17/2020 11:59 AM CDT) TSH 1.48 0.35 - 5.00 MCU/ML [facility] MAIN [facility] Specimen Blood Performing Organization Address City/[facility]/ZIP Code P morris Number MAIN LAB [address] [place] [address] * TROPONIN-I (11/17/2020 11:59 AM CDT) Troponin-I 0.20 (H) 0.0 - 0.05 NG/ML MAIN LAB Specimen Blood Performing Organization Address [facility] P morris Number MAIN LAB [address] [place] [phone] * BNP (B-TYPE NATRIURETIC PEPTI) (11/17/2020 11:59 AM CDT) B Type 931.0 (H) 0 - 100 PG/ML MAIN LAB Natriuretic Peptide Specimen Blood Performing Organization Address [facility] Code P morris Number MAIN LAB [address] [phone] * PHOSPHORUS (11/17/2020 11:59 AM CDT) Phosphorus 5.6 (H) 2.0 - 4.5 MG/DL [facility]IN [facility] Specimen Blood Performing Organization Address City/[facility] Code P morris Number MAIN LAB [address] [phone] * MAGNESIUM (11/17/2020 11:59 AM CDT) Magnesium 1.7 1.6 - 2.6 mg/dL [facility]IN [facility] Specimen Blood Performing Organization Address City/[facility] Code P morris Number MAIN LAB [address] [phone] * IONIZED CALCIUM (11/17/2020 11:59 AM CDT) Ionized Calcium 1.28 1.0 - 1.3 MMOL/L MAIN LAB Specimen Blood Performing Organization Address City/[facility]/ZIP Code P morris Number [facility] [address] [place] [address] * LACTIC ACID (BG - RAPID LACTATE) (11/17/2020 11:59 AM CDT) Pathologist [facility] Lactic Acid,BG 1.6 0.5 - 2.0 MMOL/L [facility]IN [facility] Specimen Blood Performing Organization Address [facility] P morris Number [facility]IN [facility] [address] [place] [address] * BLOOD GASES, ARTERIAL (11/17/2020 11:59 AM CDT) Pathologist [facility] pH-Arterial 7.24 (L) 7.35 - 7.45 [facility] MAIN [facility] pCO2-Arterial 70 (H) 35 - 45 MMHG [facility] pO2-Arterial 96 80 - 100 MMHG [facility] Base 0.5 MMOL/L [facility] Deficit-Arteria l O2 Sat-Arterial 95.7 95 - 99 % [facility]IN [facility] Bicarbonate-ART 24.0 21 - 28 MMOL/L [facility] MAIN [facility] -Adolfo Specimen Blood, arterial - Blood Performing Organization Address [facility] P morris Number [facility]IN [facility] [address] [place] [address] * COMPREHENSIVE METABOLIC PANEL (11/17/2020 11:59 AM CDT) Pathologist [facility] Sodium 140 137 - 147 MMOL/L [facility]IN [facility] Potassium 4.3 3.5 - 5.1 MMOL/L [facility]IN [facility] Chloride 100 98 - 110 MMOL/L [facility]IN [facility] Glucose 516 (HH) 70 - 100 MG/DL [facility] Comment: CRITICAL VALUE CALLED TO AND READ BACK BY/TIME/TECH BRI BOO at 11/17/2020 13:20:29 by [id number] Blood Urea 18 7 - 25 MG/DL [facility] MAIN [facility] Nitrogen Creatinine 0.94 0.4 - 1.00 MG/DL [facility]IN [facility] Calcium 9.6 8.5 - 10.6 MG/DL [facility]IN [facility] Total Protein 7.6 6.0 - 8.0 G/DL [facility]IN [facility] Total Bilirubin 0.4 0.3 - 1.2 MG/DL [facility]IN [facility] Albumin 4.2 3.5 - 5.0 G/DL [facility] MAIN [facility] Alk Phosphatase 133 (H) 25 - 110 U/L [facility] MAIN [facility] AST (SGOT) 87 (H) 7 - 40 U/L [facility] MAIN [facility] CO2 26 21 - 30 MMOL/L [facility]IN [facility] ALT (SGPT) 103 (H) 7 - 56 U/L [facility]IN [facility] Anion Gap 14 (H) 3 - 12 [facility] MAIN [facility] eGFR Non >60 >60 mL/min [facility] Comment: [place] The eGFR is not validated f or use in drug dosing adjustments. Continue to use estimated creatinine clearance per dosing reference text. Please contact the Clinical Pharmacist for questions. eGFR >60 >60 mL/min [facility]IN [facility] [place] Comment: The eGFR is not validated for use in drug dosing adjustments. Continue to use estimated creatinine clearance per dosing reference text. Please contact the Clinical Pharmacist for questions. Specimen Blood Performing Organization Address City/State/ZIP Code P morris Number [facility] MAIN [facility] [address] [place] [address] * PROTIME INR (PT) (11/17/2020 11:59 AM CDT) INR 1.1 0.8 - 1.2 [facility] MAIN [facility] Specimen Blood Performing Organization Address City/State/ZIP Code P morris Number [facility] MAIN [facility] [address] [place] [address] * CBC AND DIFF (11/17/2020 11:59 AM CDT) White Blood 18.6 (H) 4.5 - 11.0 K/UL [facility] MAIN [facility] Cells RBC 4.79 4.0 - 5.0 M/UL [facility]IN [facility] Hemoglobin 13.4 12.0 - 15.0 GM/DL [facility]IN [facility] Hematocrit 40.4 36 - 45 % [facility] MCV 84.4 80 - 100 FL [facility]IN [facility] MCH 28.1 26 - 34 PG [facility] MCHC 33.3 32.0 - 36.0 G/DL [facility] MAIN [facility] RDW 14.9 11 - 15 % [facility] Platelet Count 327 150 - 400 K/UL [facility] MPV 9.9 7 - 11 FL [facility] Neutrophils 96 (H) 41 - 77 % [facility] Lymphocytes 2 (L) 24 - 44 % [facility] Monocytes 2 (L) 4 - 12 % [facility] Eosinophils 0 0 - 5 % [facility] Basophils 0 0 - 2 % [facility] Absolute 17.90 (H) 1.8 - 7.0 K/UL [facility]IN [facility] Neutrophil Count Absolute Lymph 0.30 (L) 1.0 - 4.8 K/UL [facility] Count Absolute 0.30 0 - 0.80 K/UL [facility] Monocyte Count Absolute 0.01 0 - 0.45 K/UL [facility] Eosinophil Count Absolute 0.08 0 - 0.20 K/UL [facility] Basophil Count Specimen Blood Performing Organization Address City/State/ZIP Code P morris Number [facility]IN [facility] [address] [place] [address] * POC GLUCOSE (11/17/2020 11:56 AM CDT) Glucose, POC 483 (H) 70 - 100 MG/DL [facility]IN [facility] Specimen Performing Organization Address City/[facility]/ZIP Code P morris Number [facility] MAIN [facility] [address] [place] [address] * CHEST SINGLE VIEW (11/17/2020 11:50 AM [...] M.D. on 2020 1:23 PM. Dictated by Uceh Carver M.D. on 11/17/2020 1:20 PM. Narrative Performed At CHEST SINGLE VIEW [facility] RESULTS INDICATION: respiratory failure. TECHNIQUE: Portable AP semiupright view of the chest was obtained COMPARISON STUDY: Comparison is made to an examination of 04/16/2011 FINDINGS: Tubes, Lines and Devices: The patient i s intubated. The tip of the endotracheal tube is well above the katie at the le yanick of the T5 vertebral body related a [...] and does not contain a result. * GENERAL RAD CHEST EXTERNAL IMAGING (11/17/2020 12:05 AM CDT) Specimen Narrative Performed At This order has been auto finalized and does not contain a result. * ECG-SCAN (11/17/2020 12:00 AM CDT) Narrative [...] available. Ordered by an unspecified provider. * GENERAL RAD CHEST EXTERNAL IMAGING (11/17/2020 12:00 AM CDT) Specimen Narrative Performed At This order has been auto finalized and does not contain a result. * GENERAL RAD MISC EXTERNAL IMAGING (07/25/2020 12:00 AM LINUX UNIX ADMINISTRATOR) Specimen Narrative Performed At This order has been auto finalized and does not contain a result. * GENERAL RAD MISC EXTERNAL IMAGING (04/07/2020 12:00 AM LINUX UNIX ADMINISTRATOR) Specimen Narrative Performed At This order has been auto finalized and does not contain a result. * GENERAL RAD CHEST EXTERNAL IMAGING (10/24/2019 12:00 AM CDT) Specimen Narrative Performed At This order has been auto finalized and does not contain a result. * GENERAL RAD CHEST EXTERNAL IMAGING (10/20/2019 12:00 AM CDT) Specimen Narrative Performed At This order has been auto finalized and does not contain a result. * GENERAL RAD CHEST EXTERNAL IMAGING (07/03/2019 12:00 AM LINUX UNIX ADMINISTRATOR) Specimen Narrative Performed At This order has been auto finalized and does not contain a result. * GENERAL RAD CHEST EXTERNAL IMAGING (03/05/2019 12:00 AM CDT) Specimen Narrative Performed At This order has been auto finalized and does not contain a result. * GENERAL RAD CHEST EXTERNAL IMAGING (02/28/2019 12:00 AM CDT) Specimen Narrative Performed At This order has been auto finalized and does not contain a result. documented in this encounter Visit Diagnoses Diagnosis Acute respiratory failure with hypoxia and hypercapnia (HCC) - Primary Atrial fibrillation, unspecified type ( HCC) Chronic obstructive pulmonary disease, unspecified COPD type ([facility]) Type 2 diabetes mellitus with other spe cified complication, unspecified whether intermediate designer insulin use ([facility]) CAP (community acquired pneumonia) due to MSSA (methicillin sensitive Staphylococcus aureus) ([facility]) HTN (hypertension) Unspecified essential hypertension DM (diabetes mellitus) ([facility]) Type II or unspecified type diabetes me llitus without mention of complication, not stated as uncontrolled CAD (coronary artery disease) Coronary atherosclerosis of unspecified type of vessel, emmonak or graft CHF (congestive heart failure) ([facility]) Congestive heart failure, unspecified Metabolic acidosis Acidosis documented in this encounter Admitting Diagnoses Diagnosis Acute respiratory failure with hypoxia and hypercapnia ([facility]) documented in this encounter Administered Medications Action Date Dose Rate Site Medication Order MAR Action 11/21/2020 11:56 AM CDT 650 mg acetaminophen (TYLENOL) tablet 650 mg Given 650 mg, Oral, EVERY 6 HOURS PRN, Starting Tue11/17/20 at 1129, Until Tue11/21/20 at 1837, Pain non-opioid: september e used alone or in combination with opioi d analgesia, TOTAL ACETAMINOPHEN DOSE NOT TO EXCEED 4GM DAILY, 650 mg Given 11/20/2020 8:04 PM CDT 650 mg Given 11/19/2020 9:28 PM CDT 650 mg Given 11/19/2020 11:37 AM CDT 650 mg Given 11/18/2020 9:17 PM CDT 650 mg Given 11/18/2020 9:42 AM CDT 11/19/2020 7:51 AM CDT 3 mL albuterol-ipratropium (DUONEB) nebulizer Given solution 3 mL 3 mL, Inhalation, RT EVERY 4 HOURS AND PRN, First dose on Tue11/17/20 at 1200, Until Discontinued, When administered b y RT, will be per RT policy., 3 mL Given 11/19/2020 12:40 AM CDT 3 mL Given 11/18/2020 7:47 PM CDT 3 mL Given 11/18/2020 12:25 PM CDT 3 mL Given 11/18/2020 7:53 AM CDT 3 mL Given 11/18/2020 4:40 AM CDT 3 mL Given 11/17/2020 11:52 PM CDT 3 mL Given 11/17/2020 8:32 PM CDT 3 mL Given 11/17/2020 4:31 PM CDT albuterol-ipratropium (DUONEB) nebulize r solution 3 mL 3 mL, Inhalation, RT EVERY 4 HOURS PRN , Starting Tue11/19/20 at 1145, Until Tue11/21/20 at 1837, RT PROTOCOL, When administered by RT, will be per RT policy., 11/21/2020 8:19 AM CDT 200 mg amiodarone (CORDARONE) tablet 200 mg Given 200 mg, Oral, DAILY, First dose on Tue11/18/20 at 1545, Until Discontinued 200 mg Given 11/20/2020 8:26 AM CDT 200 mg Given 11/19/2020 8:45 AM CDT 200 mg Given 11/18/2020 3:29 PM CDT 11/21/2020 11:50 AM CDT 875 mg amoxicillin-potassium clavulanate Given (AUGMENTIN) tablet 875 mg 875 mg, Oral, ONCE, 1 dose, Tue11/21/20 at 1300, NURSING: Please educate patien t and document: Give with food., 11/21/2020 8:18 AM CDT 5 mg apixaban (ELIQUIS) tablet 5 mg Given 5 mg, Oral, TWICE DAILY, First dose on Tue11/18/20 at 2100, Until Discontinued , If patient unable to swallow whole tablets, may crush 5mg or 2.5mg tablets and suspend in 60mL of water, D5W, or apple juice or mix with applesauce; administer immediately. For delivery through a nasogastric tube, crushed tablets maybe suspended in 60mL of wate r or D5W followed immediately by delivery . NOTE: This is a HIGH ALERT Medication., 5 mg Given 11/20/2020 8:18 PM CDT 5 mg Given 11/20/2020 8:26 AM CDT 5 mg Given 11/19/2020 8:09 PM CDT 5 mg Given 11/19/2020 8:45 AM CDT 5 mg Given 11/18/2020 9:17 PM CDT 11/18/2020 11:50 AM CDT 81 mg aspirin chewable tablet 81 mg Given 81 mg, Feeding Tube, DAILY, First dose on Tue11/18/20 at 1100, Until Discontinued 11/20/2020 8:26 AM CDT 81 mg aspirin EC tablet 81 mg Given 81 mg, Oral, DAILY, First dose on Tue11/19/20 at 0900, Until Discontinued 81 mg Given 11/19/2020 8:45 AM CDT 11/21/2020 8:19 AM CDT 80 mg atorvastatin (LIPITOR) tablet 80 mg Given 80 mg, Oral, DAILY, First dose on Tue11/18/20 at 0900, Until Discontinued 80 mg Given 11/20/2020 8:26 AM CDT 80 mg Given 11/19/2020 8:45 AM CDT 80 mg Given 11/18/2020 8:10 AM CDT benzonatate (TESSALON PERLES) capsule 100 mg 100 mg, Oral, THREE TIMES DAILY PRN, Starting Tue11/20/20 at 2016, Until Tue11/21/20 at 1837, Cough 11/21/2020 8:19 AM CDT 2 mg bumetanide (BUMEX) tablet 2 mg Given 2 mg, Oral, TWICE DAILY, First dose on Tue11/19/20 at 0900, Until Discontinued 2 mg Given 11/20/2020 5:30 PM CDT 2 mg Given 11/20/2020 8:26 AM CDT 2 mg Given 11/19/2020 4:22 PM CDT 2 mg Given 11/19/2020 11:15 AM CDT camphor/menthol (SARNA) 0.5/0.5 % topical lotion Topical, THREE TIMES DAILY PRN, Startin g Tue11/18/20 at 0829, Until Tue11/21/20 at 1837, Muscle Cramps, Apply to painfu l areas, 11/21/2020 3:00 AM CDT 2 g ceFAZolin (ANCEF) IVP 2 g Given 2 g, Intravenous, EVERY 8 HOURS, First dose on Tue11/20/20 at 1130, Until Discontinued, IV PUSH -- RECONSTITUTE each 1 g vial by adding 10 mLs of STERILE WATER (SW), 2 g Given 11/20/2020 8:06 PM CDT 2 g Given 11/20/2020 11:53 AM CDT 11/19/2020 1:56 PM CDT 1 g cefTRIAXone (ROCEPHIN) IVP 1 g Given 1 g, Intravenous, EVERY 24 HOURS, 6 doses, First dose on Tue11/17/20 at 1300, Last dose on Tue11/22/20 at 1300, INSTR: IV PUSH -- RECONSTITUTE EACH 1 G M WITH 10 MLS of 0.9% NACL (NS) or STERIL E WATER (SW) or DEXTROSE 5% (D5W), 1 g Given 11/18/2020 1:45 PM CDT 11/18/2020 8:10 AM CDT 15 mL chlorhexidine gluconate (PERIDEX) 0.12 % Given solution 15 mL 15 mL, SEE ADMIN INSTRUCTIONS, TWICE DAILY, First dose on Tue11/17/20 at 1145, Until Discontinued, In mechanically ventilated patient, apply with swab to entire oral cavity and artificial airway. Discontinue when patient is no longer ventilated. , 15 mL Given 11/17/2020 8:00 PM CDT 15 mL Given 11/17/2020 2:15 PM CDT 11/21/2020 8:18 AM CDT 1,000 Units cholecalciferol (VITAMIN D-3) tablet Given 1,000 Units 1,000 Units, Oral, DAILY, First dose on Tue11/18/20 at 1545, Until Discontinued 1,000 Units Given 11/20/2020 8:25 AM CDT 1,000 Units Given 11/19/2020 8:45 AM CDT 1,000 Units Given 11/18/2020 3:29 PM CDT 11/21/2020 8:19 AM CDT 75 mg clopiDOGrel (PLAVIX) tablet 75 mg Given 75 mg, Oral, DAILY, First dose on Tue11/17/20 at 1600, Until Discontinued, This Medication can increase the risk o f bleeding and may need to be held prior to surgery or invasive procedures. Consult physician in advance., 75 mg Given 11/20/2020 8:26 AM CDT 75 mg Given 11/19/2020 8:45 AM CDT 75 mg Given 11/18/2020 8:10 AM CDT 75 mg Given 11/17/2020 5:24 PM CDT 11/21/2020 11:56 AM CDT 5 mg cyclobenzaprine (FLEXERIL) tablet 5 mg Given 5 mg, Oral, THREE TIMES DAILY PRN, Starting Tue11/18/20 at 0827, Until Tue11/21/20 at 1837, Muscle Cramps 5 mg Given 11/21/2020 6:37 AM CDT 5 mg Given 11/20/2020 8:05 PM CDT 5 mg Given 11/19/2020 9:28 PM CDT 5 mg Given 11/19/2020 11:37 AM CDT 5 mg Given 11/18/2020 9:17 PM CDT 5 mg Given 11/18/2020 9:42 AM CDT 11/18/2020 9:43 AM CDT 0.4 mcg/kg/hr 9.9 mL/hr dexMEDEtomidine (PRECEDEX) 400 mcg/NS Given - New 100 ml IV drip (premade) Bag 100 mL, 0.2-1 mcg/kg/hr 99.3 kg (4.965-24.825 mL/hr, rounded to 5-24.8 mL/hr), at 5-24.8 mL/hr, Intravenous, TITRATE DIRECTED , Starting Tue11/18/20 at 0830, Until Tue11/18/20 at 1529, -Initiate at 0.2 mcg/kg/hr and maintain for 30 minutes -Titrate to keep: RASS of 0 to -2 a.) Titrate infusion in increments of 0.1 mcg/kg/hr at 5 minute intervals until goal sedation level achieved or maintenance exceeds 1.0 mcg/kg/hr b.) If HR < 60 or SBP < 90 mmHg hold for 10 minutes then restart at dose reduced by 0.3 mcg/kg/hr c.) Notify physician for persistent hypotension (SBP < 90 mmHg) or bradycardia (HR < 60) over 15 minute s d.) For breakthrough agitation NOTIFY PHYSICIAN and consider bolus of 1 mcg/k g over 20 min if HR and BP are acceptable . e.) Notify physician if maintenance exceeds 1 mcg/kg/hr -Taper agent continuously to lowest effective dose t o achieve desired level of sedation keeping patient calm and able to participate in care. , Std conc= 4mcg/ml NOTE: For weight-based dosing , use patient dosing weight. NOTE: This i s a HIGH ALERT Medication., 11/21/2020 8:22 AM CDT 2 g diclofenac sodium (VOLTAREN) 1 % topical Given gel 2 g 2 g, Topical, TWICE DAILY, First dose o n Tue11/19/20 at 0900, Until Discontinued 11/20/2020 2:20 AM CDT 100 mg 110 mL/hr doxycycline (VIBRAMYCIN) 100 mg in Given - New dextrose 5% (D5W) 100 mL IVPB Bag 100 mg, Intravenous, 110 mL, Administer over 1 Hours, EVERY 12 HOURS, 10 doses, First dose on Tue11/17/20 at 1300, Last dose on Tue11/22/20 at 0100, PROTECT FROM LIGHT, 100 mg 110 mL/hr Given - New Bag 11/19/2020 1:56 PM CDT 100 mg 110 mL/hr Given - New Bag 11/19/2020 12:34 AM CDT 100 mg 110 mL/hr Given - New Bag 11/18/2020 1:45 PM CDT 100 mg 110 mL/hr Given - New Bag 11/18/2020 1:50 AM CDT 100 mg 110 mL/hr Given - New Bag 11/17/2020 1:31 PM CDT 11/21/2020 6:02 AM CDT 100 mg doxycycline hyclate (VIBRAMYCIN) tablet Given 100 mg 100 mg, Oral, EVERY 12 HOURS, First dos e on Tue11/21/20 at 0600, Until Discontinued, NURSING: Please educate patient and document: Give 1 hour befor e or 2 hours after meals. If patient is receiving tube feedings, hold tube feedings 1 hour before and 2 hours afte r dose. Do not give within 2 hours of antacids, magnesium, calcium, iron, zinc, or vitamins containing these minerals., 11/21/2020 8:19 AM CDT [address] (CYMBALTA) capsule 60 mg Given 60 mg, Oral, DAILY, First dose on Tue11/19/20 at 0900, Until Discontinued 60 mg Given 11/20/2020 8:26 AM CDT 60 mg Given 11/19/2020 8:45 AM CDT 11/17/2020 8:00 PM CDT 40 mg Abdomina l Tissue enoxaparin (LOVENOX) syringe 40 mg Given 40 mg, Subcutaneous, DAILY, First dose on Tue11/17/20 at 2100, Until Discontinued, For patients undergoing surgery: Consult physician in advance - - enoxaparin is an anticoagulant and may need to be held for 12hr prior to surgery or invasive procedures. NOTE: This is a HIGH ALERT Medication., eucalyptus-menthol (HALLS) lozenge 1 lozenge 1 lozenge, Oral, EVERY 2 HOURS PRN, Starting Lily 11/20/20 at 2018, Until Tue11/21/20 at 1837, Mouth/Throat Pain 11/18/2020 11:47 AM CDT 25 mcg/hr 2.5 mL/hr fentaNYL (SUBLIMAZE) 1000 mcg/100 mL NS Dose/Rate IV drip (std conc)(premade) Change 100 mL, 10-70 mcg/hr (1-7 mL/hr), at 1- 7 mL/hr, Intravenous, TITRATE DIRECTED , Starting 11/17/20 at 1145, Until Tue11/18/20 at 1529, Drip Parameters: Loading Dose: 25 mcg, administer slowly over 1-2 minutes Initial Rate: 10 mcg/hr Titrate to keep : Self Reporting Pain Scale of <=4 or Observational Pain Score of <=2 Titrate by 5 mcg every 15 minutes as needed to maintain desired clinical response May bolus 25 mcg IV every 30 minutes prn breakthrough pain. Notify prescriber if 3 or more bolus doses required without relief of symptoms. Std conc = 10 mcg/m L NOTE: This is a HIGH ALERT Medication., 50 mcg/hr 5 mL/hr Dose/Rate Change 11/18/2020 8:12 AM CDT 40 mcg/hr 4 mL/hr Dose/Rate Verify 11/18/2020 7:37 AM CDT 40 mcg/hr 4 mL/hr Given - New Bag 11/18/2020 4:45 AM CDT 40 mcg/hr 4 mL/hr Dose/Rate Change 11/17/2020 7:58 PM CDT 35 mcg/hr 3.5 mL/hr Dose/Rate Change 11/17/2020 5:32 PM CDT 40 mcg/hr 4 mL/hr Bolus from Infusion 11/17/2020 1:39 PM CDT 40 mcg/hr 4 mL/hr Dose/Rate Change 11/17/2020 1:21 PM CDT 35 mcg/hr 3.5 mL/hr Dose/Rate Change 11/17/2020 11:58 AM CDT 10 mcg/hr 1 mL/hr Given - New Bag 11/17/2020 11:37 AM CDT 11/20/2020 8:20 PM CDT 2 sprays fluticasone propionate (FLONASE) nasal Given spray 2 spray 2 spray, Each Nostril, TWICE DAILY, First dose on Tue11/19/20 at 0900, Unti l Discontinued 2 sprays Given 11/20/2020 8:26 AM CDT 2 sprays Given 11/19/2020 8:12 PM CDT 2 sprays Given 11/19/2020 8:56 AM CDT 11/21/2020 5:16 AM CDT 1 puff fluticasone propionate (FLOVENT HFA) 44 Given mcg/actuation inhaler 1 puff 1 puff, Inhalation, RT TWICE DAILY, First dose on Tue11/18/20 at 1800, Unti l Discontinued, When administered by RT, will be per RT policy., 1 puff Given 11/20/2020 5:07 PM CDT 1 puff Given 11/20/2020 5:42 AM CDT 1 puff Given 11/19/2020 5:46 PM CDT 1 puff Given 11/19/2020 7:53 AM CDT 1 puff Given 11/18/2020 7:47 PM CDT 11/17/2020 2:15 PM CDT 60 mg furosemide (LASIX) injection 60 mg Given 60 mg, 6 mL, Intravenous, ONCE, 1 dose, Tue11/17/20 at 1430, PROTECT FROM LIGHT , 11/18/2020 8:10 AM CDT 60 mg furosemide (LASIX) injection 60 mg Given 60 mg, 6 mL, Intravenous, ONCE, 1 dose, Tue11/18/20 at 0745, PROTECT FROM LIGHT , 11/18/2020 7:54 PM CDT INHALATIONAL SPACING DEVICE MISC SPCR Given (Cabinet Override) NOW, 1 dose, Tue11/18/20 at 2000, Created by cabinet override, Created by cabinet override, 11/17/2020 5:27 PM CDT 12 Units Abdomina l Tissue insulin aspart U-100 (NOVOLOG FLEXPEN) Given injection PEN 0-12 Units 0-12 Units, Subcutaneous, BEFORE MEALS AND 2200, First dose on Tue11/17/20 at 1700, Until Discontinued, -POC glucose 181-220mg/dL at , , administer 2 units insulin, at 22, 03* administer 0 units. -POC glucose 221-260mg/dL at , , administer 4 units insulin, at , 03* administer 2 units. -POC glucos e 261-300mg/dL at , , administer 6 units insulin, at 22, 03* administer 4 units. -POC glucose 301-350mg/dL at , , administer 8 units insulin, at , 03* administer 6 units. -POC glucos e 351-400mg/dL at , , administer 1 0 units insulin, at , 03* administer 8 units. -POC glucose >400mg/dL at administer 12 units insulin, at , 03* administer 10 units. *only if ordered 5x's daily For POCT glucose >350mg/dL give correction bolus and recheck POCT glucose in 2 hours. If POC T glucose at 2 hours >300mg/dL call physician for further orders. For patients who are not eating meals, continue to administer the appropriate correction factor. NOTE: This is a HIGH ALERT Medication., Dispense pens manually with initial order and then upon request. DO NOT uncheck "Do not dispense", 11/21/2020 11:49 AM CDT 4 Units Arm, Lef t insulin aspart U-100 (NOVOLOG FLEXPEN) Given injection PEN 0-24 Units 0-24 Units, Subcutaneous, BEFORE MEALS AND 2200, First dose on Lily 11/20/20 at 0700, Until Discontinued, -POC glucose 181-220mg/dL at , administer 4 units insulin, at 22, 03* administer 0 units. -POC glucose 221-260mg/dL at , , administer 8 units insulin, at 22, 03* administer 4 units. -POC glucos e 261-300mg/dL at , , administer 1 2 units insulin, at , 03* administer 8 units. -POC glucose 301-350mg/dL at , , administer 16 units insulin, at 22, 03* administer 12 units. -POC glucose 351-400mg/dL at , , administer 20 units insulin, at 22, 03* administer 16 units. -POC glucose >400mg/dL at 07, 11, 17 administer 24 units insulin, at 22, 03* administer 20 units. *only if ordered 5x's daily Fo r POCT glucose >350mg/dL give correction bolus and recheck POCT glucose in 2 hours. If POCT glucose at 2 hours >300mg/dL call physician for further orders. For patients who are not eatin g meals, continue to administer the appropriate correction factor. NOTE: This is a HIGH ALERT Medication., Dispense pens manually with initial order and then upon request. DO NOT uncheck "Do not dispense", 4 Units Arm, Right Given 11/21/2020 8:16 AM CDT 8 Units Arm, Left Given 11/20/2020 5:31 PM CDT 11/17/2020 1:32 PM CDT 16 Units Abdomina l Tissue insulin aspart U-100 (NOVOLOG FLEXPEN) Given injection PEN 16 Units 16 Units, Subcutaneous, ONCE, 1 dose, 11/17/20 at 1245, Give scheduled doses of Insulin Aspart with meals/food . NOTE: Rapid acting insulins should be given with food/meal. Use caution when patient is NPO. NOTE: This is a HIGH ALERT Medication., Dispense pens manually with initial order and then upon request. DO NOT uncheck "Do not dispense", 11/19/2020 8:51 AM CDT 20 Units Abdomina l Tissue insulin glargine (LANTUS SOLOSTAR) Given injection PEN 20 Units 20 Units, Subcutaneous, DAILY, First dose on Tue11/19/20 at 0900, Until Discontinued, -- Do not mix with other insulins -- NOTE: This is a HIGH ALERT Medication., 11/21/2020 8:20 AM CDT 20 Units Arm, Rig ht insulin glargine (LANTUS SOLOSTAR) Given injection PEN 20 Units 20 Units, Subcutaneous, TWICE DAILY, First dose (after last modification) on Lily 11/20/20 at 0900, Until Discontinued , -- Do not mix with other insulins -- NOTE: This is a HIGH ALERT Medication., 20 Units Arm, Left Given 11/20/2020 8:20 PM CDT 20 Units Arm, Left Given 11/20/2020 8:25 AM CDT 11/19/2020 8:11 PM CDT 30 Units Abdomina l Tissue insulin glargine (LANTUS SOLOSTAR) Given injection PEN 30 Units 30 Units, Subcutaneous, AT BEDTIME DAILY, First dose (after last modification) on Tue11/19/20 at 2100, Until Discontinued, -- Do not mix with other insulins -- NOTE: This is a HIGH ALERT Medication., 11/17/2020 1:33 PM CDT 20 Units Abdomina l Tissue insulin NPH (HUMULIN N KwikPen) Given injection PEN 20 Units 20 Units, Subcutaneous, TWICE DAILY, First dose on Tue11/17/20 at 1300, Unti l Discontinued, Continue if NPO. Do not mix with other insulins. NOTE: This is a HIGH ALERT Medication., Dispense pens manually with initial order and then upon request. DO NOT uncheck "Do not dispense", 11/18/2020 8:00 PM CDT 7 Units/hr 7 mL/hr insulin regular 100 units/NS 100 mL IV Dose/Rate drip (premade) Change 100 mL, 1-32 Units/hr (1-32 mL/hr), at 1-32 mL/hr, Intravenous, TITRATE DIRECTED , Starting Tue11/17/20 at 1745, Until Tue11/19/20 at 0026, (Administration Instructions were omitted from this summary because they were too long), 9.5 Units/hr 9.5 mL/hr Given - New Bag 11/18/2020 4:07 PM CDT 11.5 Units/hr 11.5 mL/hr Infusion Restarted 11/18/2020 12:46 PM CDT 15.5 Units/hr 15.5 mL/hr Dose/Rate Change 11/18/2020 7:47 AM CDT 18.5 Units/hr 18.5 mL/hr Dose/Rate Verify 11/18/2020 7:38 AM CDT 18.5 Units/hr 18.5 mL/hr Dose/Rate Change 11/18/2020 6:41 AM CDT 14.5 Units/hr 14.5 mL/hr Dose/Rate Change 11/18/2020 6:11 AM CDT 10.5 Units/hr 10.5 mL/hr Dose/Rate Change 11/18/2020 5:01 AM CDT 12.5 Units/hr 12.5 mL/hr Dose/Rate Change 11/18/2020 2:58 AM CDT 9.5 Units/hr 9.5 mL/hr Dose/Rate Change 11/18/2020 12:46 AM CDT 8 Units/hr 8 mL/hr Dose/Rate Change 11/17/2020 10:41 PM CDT 6 Units/hr 6 mL/hr Dose/Rate Change 11/17/2020 9:55 PM CDT 5 Units/hr 5 mL/hr Dose/Rate Change 11/17/2020 7:56 PM CDT 6.5 Units/hr 6.5 mL/hr Dose/Rate Verify 11/17/2020 7:20 PM CDT 6.5 Units/hr 6.5 mL/hr Dose/Rate Change 11/17/2020 7:19 PM CDT 4.5 Units/hr 4.5 mL/hr Given - New Bag 11/17/2020 6:35 PM CDT 11/20/2020 6:27 AM CDT 4 Units/hr 4 mL/hr insulin regular 100 units/NS 100 mL IV Dose/Rate drip (premade) Verify 100 mL, 1-32 Units/hr (1-32 mL/hr), at 1-32 mL/hr, Intravenous, TITRATE DIRECTED , Starting 11/19/20 at 1200, Until Lily 11/20/20 at 0656, (Administration Instructions were omitted from this summary because they were too long), 4 Units/hr 4 mL/hr Dose/Rate Verify 11/20/2020 5:28 AM CDT 4 Units/hr 4 mL/hr Dose/Rate Change 11/20/2020 4:33 AM CDT 5 Units/hr 5 mL/hr Dose/Rate Verify 11/20/2020 3:52 AM CDT 5 Units/hr 5 mL/hr Dose/Rate Change 11/20/2020 3:22 AM CDT 4 Units/hr 4 mL/hr Dose/Rate Change 11/20/2020 2:20 AM CDT 5 Units/hr 5 mL/hr Infusion Restarted 11/20/2020 12:10 AM CDT 5.6 Units/hr 5.6 mL/hr Dose/Rate Change 11/19/2020 10:06 PM CDT 7 Units/hr 7 mL/hr Dose/Rate Change 11/19/2020 9:15 PM CDT 5 Units/hr 5 mL/hr Dose/Rate Change 11/19/2020 8:10 PM CDT 3 Units/hr 3 mL/hr Dose/Rate Verify 11/19/2020 7:16 PM CDT 3 Units/hr 3 mL/hr Dose/Rate Change 11/19/2020 6:20 PM CDT 2.5 Units/hr 2.5 mL/hr Dose/Rate Change 11/19/2020 4:30 PM CDT 3.5 Units/hr 3.5 mL/hr Given - New Bag 11/19/2020 2:10 PM CDT 11/18/2020 4:10 AM CDT 1 g 100 mL/hr magnesium sulfate 1 g/D5W 100 mL IVPB Given - New 1 g, Intravenous, 100 mL, Administer Bag over 1 Hours, EVERY 1 HOUR, 1 dose, First dose on Tue11/18/20 at 0415, Each 1gm delivers 8.1 mEq Magnesium., 11/18/2020 5:34 AM CDT 1 g 100 mL/hr magnesium sulfate 1 g/D5W 100 mL IVPB Given - New 1 g, Intravenous, 100 mL, Administer Bag over 1 Hours, EVERY 1 HOUR, 1 dose, First dose on Tue11/18/20 at 0500, Each 1gm delivers 8.1 mEq Magnesium., 11/18/2020 6:39 AM CDT 1 g 100 mL/hr magnesium sulfate 1 g/D5W 100 mL IVPB Given - New 1 g, Intravenous, 100 mL, Administer Bag over 1 Hours, EVERY 1 HOUR, 1 dose, First dose on Tue11/18/20 at 0600, Each 1gm delivers 8.1 mEq Magnesium., 11/19/2020 5:25 AM CDT 1 g 100 mL/hr magnesium sulfate 1 g/D5W 100 mL IVPB Given - New 1 g, Intravenous, 100 mL, Administer Bag over 1 Hours, EVERY 1 HOUR, 1 dose, First dose on Tue11/19/20 at 0515, Each 1gm delivers 8.1 mEq Magnesium., 11/19/2020 6:39 AM CDT 1 g 100 mL/hr magnesium sulfate 1 g/D5W 100 mL IVPB Given - New 1 g, Intravenous, 100 mL, Administer Bag over 1 Hours, EVERY 1 HOUR, 1 dose, First dose on Tue11/19/20 at 0600, Each 1gm delivers 8.1 mEq Magnesium., 11/19/2020 7:43 AM CDT 1 g 100 mL/hr magnesium sulfate 1 g/D5W 100 mL IVPB Given - New 1 g, Intravenous, 100 mL, Administer Bag over 1 Hours, EVERY 1 HOUR, 1 dose, First dose on Tue11/19/20 at 0700, Each 1gm delivers 8.1 mEq Magnesium., 11/20/2020 4:14 AM CDT 1 g 25 mL/hr magnesium sulfate 1 g/D5W 100 mL IVPB Given - New 1 g, Intravenous, 100 mL, Administer Bag over 4 Hours, EVERY 4 HOURS, 1 dose, First dose on Tue11/20/20 at 0445, Each 1gm delivers 8.1 mEq Magnesium., 11/20/2020 8:14 AM CDT 1 g 25 mL/hr magnesium sulfate 1 g/D5W 100 mL IVPB Given - New 1 g, Intravenous, 100 mL, Administer Bag over 4 Hours, EVERY 4 HOURS, 1 dose, First dose on Tue11/20/20 at 0845, Each 1gm delivers 8.1 mEq Magnesium., 11/18/2020 1:45 PM CDT 2.5 mg metoprolol (LOPRESSOR) injection 2.5 mg Given 2.5 mg, Intravenous, ONCE, 1 dose, Tue11/18/20 at 1430, PROTECT FROM LIGHT, 11/18/2020 2:01 PM CDT 2.5 mg metoprolol (LOPRESSOR) injection 2.5 mg Given 2.5 mg, Intravenous, ONCE, 1 dose, Tue11/18/20 at 1445, PROTECT FROM LIGHT, 11/18/2020 8:09 AM CDT 0.02 mcg/kg/min 7.5 mL/hr norepinephrine (LEVOPHED) 4 mg/250 mL Dose/Rate NS IV drip (std conc)(premade) Change 250 mL, 0-0.5 mcg/kg/min 99.4 kg (0-186.375 mL/hr, rounded to 0-186.4 mL/hr), at 0-186.4 mL/hr, Intravenous, TITRATE DIRECTED , Starting Tue11/17/20 at 1415, Until Tue11/20/20 at 0613, Drip Parameters: Initial Rate: 0.02 mcg/kg/min Titrate to keep: MAP > 65 Titrate by: 0.02 mcg/kg/min every 2 minutes as needed to maintain desired clinical response Std conc = 16 mcg/mL, 0.03 mcg/kg/min 11.2 mL/hr Dose/Rate Change 11/18/2020 7:49 AM CDT 0.04 mcg/kg/min 14.9 mL/hr Dose/Rate Verify 11/18/2020 7:38 AM CDT 0.04 mcg/kg/min 14.9 mL/hr Dose/Rate Change 11/18/2020 1:42 AM CDT 0.06 mcg/kg/min 22.4 mL/hr Dose/Rate Change 11/18/2020 1:27 AM CDT 0.08 mcg/kg/min 29.8 mL/hr Dose/Rate Change 11/18/2020 12:42 AM CDT 0.1 mcg/kg/min 37.3 mL/hr Dose/Rate Change 11/18/2020 12:35 AM CDT 0.14 mcg/kg/min 52.2 mL/hr Dose/Rate Change 11/18/2020 12:22 AM CDT 0.12 mcg/kg/min 44.7 mL/hr Dose/Rate Change 11/18/2020 12:18 AM CDT 0.1 mcg/kg/min 37.3 mL/hr Given - New Bag 11/17/2020 9:11 PM CDT 0.08 mcg/kg/min 29.8 mL/hr Dose/Rate Change 11/17/2020 9:05 PM CDT 0.06 mcg/kg/min 22.4 mL/hr Dose/Rate Change 11/17/2020 8:06 PM CDT 0.05 mcg/kg/min 18.6 mL/hr Dose/Rate Change 11/17/2020 7:20 PM CDT 0.04 mcg/kg/min 14.9 mL/hr Dose/Rate Change 11/17/2020 6:43 PM CDT 0.03 mcg/kg/min 11.2 mL/hr Dose/Rate Change 11/17/2020 6:27 PM CDT 0.05 mcg/kg/min 18.6 mL/hr Dose/Rate Change 11/17/2020 5:37 PM CDT 0.06 mcg/kg/min 22.4 mL/hr Dose/Rate Change 11/17/2020 5:32 PM CDT 0.08 mcg/kg/min 29.8 mL/hr Dose/Rate Change 11/17/2020 2:05 PM CDT 0.05 mcg/kg/min 18.6 mL/hr Given - New Bag 11/17/2020 2:00 PM CDT 11/19/2020 8:09 PM CDT 40 mg pantoprazole (PROTONIX) injection 40 mg Given 40 mg, Intravenous, TWICE DAILY, First dose on Tue11/17/20 at 2100, Until Discontinued 40 mg Given 11/19/2020 11:20 AM CDT 40 mg Given 11/18/2020 9:17 PM CDT 40 mg Given 11/18/2020 11:43 AM CDT 40 mg Given 11/17/2020 8:00 PM CDT 11/17/2020 3:28 PM CDT 3 Diluted mL perflutren lipid microspheres (DEFINITY) Given injection 1-20 Diluted mL 1-20 Diluted mL, Intravenous, ONCE PRN, 1 dose, Starting Tue11/17/20 at 1417, Until Tue11/17/20 at 1528, For Procedure, A planning technician may only administer Definity through a saline lock. If IV is in use or a port, PICC, or central line is being used a nurse must administer. NOTE: This is a HIGH ALERT Medication., MAC Procedure Area Only - Medications 11/19/2020 8:44 AM CDT 17 g polyethylene glycol 3350 (MIRALAX) Given packet 17 g 17 g (1 packet), Oral, DAILY, First dos e on Tue11/18/20 at 0900, Until Discontinued, 8.5 GRAMS = 0.5 PACKET 17 GRAMS = 1 PACKET 34 GRAMS = 2 PACKETS, 17 g Given 11/18/2020 8:10 AM CDT 11/19/2020 5:25 AM CDT 10 mEq 25 mL/hr potassium chloride in water IVPB 10 mEq Given - New 10 mEq, Intravenous, 50 mL, Administer Bag over 120 Minutes, EVERY 2 HOURS, 1 dose, First dose on Tue11/19/20 at 0615 , NOTE: This is a HIGH ALERT Medication., 11/19/2020 7:40 AM CDT 10 mEq 25 mL/hr potassium chloride in water IVPB 10 mEq Given - New 10 mEq, Intravenous, 50 mL, Administer Bag over 120 Minutes, EVERY 2 HOURS, 1 dose, First dose on Tue11/19/20 at 0815 , NOTE: This is a HIGH ALERT Medication., 11/19/2020 11:15 AM CDT 10 mEq 25 mL/hr potassium chloride in water IVPB 10 mEq Given - New 10 mEq, Intravenous, 50 mL, Administer Bag over 120 Minutes, EVERY 2 HOURS, 1 dose, First dose on Tue11/19/20 at 1015 , NOTE: This is a HIGH ALERT Medication., 11/19/2020 2:10 PM CDT 10 mEq 25 mL/hr potassium chloride in water IVPB 10 mEq Given - New 10 mEq, Intravenous, 50 mL, Administer Bag over 120 Minutes, EVERY 2 HOURS, 1 dose, First dose on Tue11/19/20 at 1215 , NOTE: This is a HIGH ALERT Medication., 11/19/2020 4:22 PM CDT 10 mEq 25 mL/hr potassium chloride in water IVPB 10 mEq Given - New 10 mEq, Intravenous, 50 mL, Administer Bag over 120 Minutes, EVERY 2 HOURS, 1 dose, First dose on Tue11/19/20 at 1415 , NOTE: This is a HIGH ALERT Medication., 11/18/2020 4:10 AM CDT 60 mEq potassium chloride oral solution 60 mEq Given 60 mEq, Per NG tube, ONCE, 1 dose, e 11/18/20 at 0500 11/20/2020 4:10 AM CDT 60 mEq potassium chloride SR (K-DUR) tablet 60 Given mEq 60 mEq, Oral, ONCE, 1 dose, [facility] 11/20/20 at 0345, - Tablet may be dispersed in water. Place tab in 30 mL of water for 40-60 seconds. - Gently swirl until fully dispersed. If particles remain after admin, add small amount of water and admin remaining content. - DO NOT CRUSH. Tablet may be split in half. Give with meal or full glass of water, 11/21/2020 3:30 PM CDT 50 mg pregabalin (LYRICA) capsule 50 mg Given 50 mg, Oral, THREE TIMES DAILY, First dose on Tue11/19/20 at 0900, Until Discontinued 50 mg Given 11/21/2020 8:18 AM CDT 50 mg Given 11/20/2020 8:05 PM CDT 50 mg Given 11/20/2020 3:37 PM CDT 50 mg Given 11/20/2020 8:26 AM CDT 50 mg Given 11/19/2020 8:09 PM CDT 50 mg Given 11/19/2020 2:10 PM CDT 50 mg Given 11/19/2020 8:45 AM CDT 11/17/2020 11:36 AM CDT 10 mcg/kg/min propofol (DIPRIVAN) 10 mg/mL IV drip Given - New 5-50 mcg/kg/min Bag Intravenous, TITRATE DIRECTED , Starting Tue11/17/20 at 1145, Until Tue11/17/20 at 1148, Initial rate: 10 mcg/kg/min (5-50 mcg/kg/min) Titrate to keep: RASS of 0 to -2 Titrate by: 10 mcg/kg/min every 5 minutes as needed to maintain desired clinical response Call physician if maintenance exceeds 150 mcg/kg/min Taper agent continuously to lowest effective dose to achieve desire d clinical response Std conc = 10 mg/mL NOTE: This is a HIGH ALERT Medication. , 11/18/2020 8:12 AM CDT 15 mcg/kg/min 8.9 mL/hr propofol (DIPRIVAN) 10 mg/mL IV drip Dose/Rate 5-50 mcg/kg/min Change 99.4 kg (2.982-29.82 mL/hr, rounded to 3-29.8 mL/hr) 100 mL, at 3-29.8 mL/hr, Intravenous, TITRATE DIRECTED , Starting Tue11/17/20 at 1200, Until Tue11/18/20 at 1529, Initial rate: 10 mcg/kg/min (5-50 mcg/kg/min) Titrate to keep: RASS of 0 to -2 Titrate by: 10 mcg/kg/min every 5 minutes as needed to maintain desired clinical response Call physician if maintenance exceeds 150 mcg/kg/min Tape r agent continuously to lowest effective dose to achieve desired clinical response Std conc = 10 mg/mL NOTE: This is a HIGH ALERT Medication. , 20 mcg/kg/min 11.9 mL/hr Dose/Rate Change 11/18/2020 7:52 AM CDT 25 mcg/kg/min 14.9 mL/hr Dose/Rate Verify 11/18/2020 7:38 AM CDT 25 mcg/kg/min 14.9 mL/hr Given - New Bag 11/18/2020 3:40 AM CDT 25 mcg/kg/min 14.9 mL/hr Given - New Bag 11/17/2020 8:37 PM CDT 25 mcg/kg/min 14.9 mL/hr Dose/Rate Change 11/17/2020 5:32 PM CDT 30 mcg/kg/min 17.9 mL/hr Dose/Rate Change 11/17/2020 5:19 PM CDT 40 mcg/kg/min 23.9 mL/hr Given - New Bag 11/17/2020 3:40 PM CDT 40 mcg/kg/min 23.9 mL/hr Dose/Rate Change 11/17/2020 1:55 PM CDT 45 mcg/kg/min 26.8 mL/hr Dose/Rate Change 11/17/2020 1:20 PM CDT 35 mcg/kg/min 20.9 mL/hr Dose/Rate Change 11/17/2020 12:15 PM CDT 25 mcg/kg/min 14.9 mL/hr Dose/Rate Change 11/17/2020 11:50 AM CDT 10 mcg/kg/min 6 mL/hr Given - New Bag 11/17/2020 11:35 AM CDT 11/21/2020 3:30 PM CDT 1 mg rOPINIRole (REQUIP) tablet 1 mg Given 1 mg, Oral, THREE TIMES DAILY, First dose on Tue11/19/20 at 0900, Until Discontinued 1 mg Given 11/21/2020 8:19 AM CDT 1 mg Given 11/20/2020 8:05 PM CDT 1 mg Given 11/20/2020 3:37 PM CDT 1 mg Given 11/20/2020 8:26 AM CDT 1 mg Given 11/19/2020 8:09 PM CDT 1 mg Given 11/19/2020 2:10 PM CDT 1 mg Given 11/19/2020 8:45 AM CDT 11/21/2020 5:16 AM CDT 1 puff umeclidinium-vilanteroL (ANORO ELLIPTA) Given 62.5-25 mcg/actuation inhaler 1 puff 1 puff, Inhalation, RT DAILY, First dos e on Tue11/18/20 at 1645, Until Discontinued, When administered by RT, will be per RT policy., 1 puff Given 11/20/2020 5:42 AM CDT 1 puff Given 11/19/2020 7:59 AM CDT 1 puff Given 11/18/2020 7:47 PM CDT 11/21/2020 8:18 AM CDT 1 tablet vitamins, multiple tablet 1 tablet Given 1 tablet, Oral, DAILY, First dose on 11/18/20 at 1600, Until Discontinued 1 tablet Given 11/20/2020 8:26 AM CDT 1 tablet Given 11/19/2020 8:45 AM CDT 1 tablet Given 11/18/2020 3:29 PM CDT 11/20/2020 11:53 AM CDT 20 mL WATER FOR INJECTION, STERILE IJ SOLN Given (Cabinet Override) NOW, 1 dose, [facility] 11/20/20 at 1200, Created by cabinet override, Created by cabinet override, documented in this encounter Discontinued Medications Start Date End Date Medication Sig Discontinue Reason 11/17/2020 buPROPion XL (+) Take 150 mg Removed from (WELLBUTRIN XL) 150 mg by mouth [employer]ED [employer]IAN Med List tablet daily. 11/17/2020 diazepam (VALIUM) 5 mg Take 5 mg by Removed from tablet mouth every [employer] Med List 6 hours as needed. For anxiety 11/17/2020 furosemide (LASIX) 40 mg Take 40 mg Removed from tablet by mouth as [employer] Med List Needed. For swelling 11/17/2020 hydrocodone-acetaminophen Take 1 Tab Removed from (NORCO) 5-325 mg per by mouth [employer] Med List tablet every 4 hours as needed. 1 tablet three times daily as needed for leg pain 04/20/2011 11/17/2020 metFORMIN (GLUCOPHAGE) Take 1 Tab Removed from 500 mg tablet by mouth [employer] Med List twice daily with meals. Start taking on 04/23/11 11/17/2020 metFORMIN (GLUCOPHAGE) Take 500 mg Removed from 500 mg tablet by mouth [employer] Med List twice daily. 04/20/2011 11/17/2020 lisinopril (PRINIVIL; Take 1 Tab Removed from ZESTRIL) 10 mg tablet by mouth [employer] Med List daily. 11/17/2020 mometasone (NASONEX) 50 Insert 2 Removed from mcg/Actuation nasal spray Sprays into [employer] Med List nose as directed daily. 11/17/2020 nitroglycerin Take 1 [place] Removed from (NITROLINGUAL) 0.4 by mouth as [employer]IC[employer]ED [employer]RICIAN Med List mg/dose translingual Needed. spray 04/20/2011 11/17/2020 nitroglycerin (NITROSTAT) Place 1 Tab Removed from 0.4 mg tablet under tongue [employer]ED [employer] Med List every 5 minutes as needed for Chest Pain. 11/17/2020 pregabalin (LYRICA) 150 Take 150 mg Removed from mg capsule by mouth [employer] Med List twice daily. For diabetic neuropathy 11/17/2020 ropinirole (REQUIP) 1 mg Take 1 mg by Removed from tablet mouth daily. [employer]IC[employer]ED [employer] Med List For restless legs 04/20/2011 11/17/2020 tiotropium (SPIRIVA) 18 Inhale 1 Cap Removed from mcg capsule for inhaler by mouth [employer] Med List daily. 11/17/2020 celecoxib (CELEBREX) 200 Take 200 mg Removed from mg capsule by mouth [employer] Med List daily. 04/20/2011 11/17/2020 carvedilol (COREG) 6.25 Take 1 Tab Removed from mg tablet by mouth [employer] Med List twice daily. 11/18/2020 fluticasone/salmeterol Inhale 1 Removed from (ADVAIR) 250/50 mcg Puff by [employer] Med List inhalation disk mouth every 12 hours. 11/18/2020 ondansetron (ZOFRAN) 4 mg Take 4 mg by Removed from tablet mouth every [employer] Med List 8 hours as needed for Nausea or Vomiting. 11/18/2020 aspirin 325 mg tablet Take 81 mg Removed from by mouth [employer] Med List daily. 11/18/2020 docosahexaenoic acid/epa Take by Removed from (FISH OIL PO) mouth. [employer]ED [employer] Med List 04/20/2011 11/18/2020 docusate (COLACE) 100 mg Take 1 Cap Removed from capsule by mouth [employer] Med List daily as needed for Constipation . 11/18/2020 tiotropium (SPIRIVA) 18 Inhale 18 Removed from mcg capsule for inhaler mcg by mouth [employer] Med List daily. 11/18/2020 Calcium Carbonate 160 mg Chew by Removed from calcium (400 mg) chew mouth. [employer]ED ELECT[employer]IC[employer] Med List 11/21/2020 aspirin EC 81 mg tablet Take 81 mg by mouth daily. Take with food. 11/21/2020 losartan (COZAAR) 25 mg Take 12.5 mg Removed from tablet by mouth [employer] Med List daily. 11/21/2020 SITagliptin (JANUVIA) 100 Take 100 mg Removed from mg tab tablet by mouth [employer] Med List daily. documented as of this encounter Historical Medications * This list may reflect changes made after this encounter. Start Date End Date Medication Sig Dispensed Refills vitamins, multi Take 1 tablet 0 w/minerals 9 mg iron-400 by mouth mcg tab daily. fish oil /omega-3 fatty Take 1 0 acids (SEA-OMEGA) capsule by 340/1000 mg capsule mouth twice daily. ondansetron (ZOFRAN ODT) Dissolve 4 mg 0 4 mg rapid dissolve by mouth tablet every 8 hours as needed for Nausea or Vomiting. Place on tongue to dissolve. calcium carb/magnesium Take 2 0 carb (CALCIUM & MAGNESIUM tablets by CARBONATES PO) mouth daily. MULTIVITAMIN PO Take 1 tablet 0 by mouth daily. cholecalciferol (VITAMIN Take 1,000 0 D-3) 1,000 units tablet Units by mouth daily. amiodarone (CORDARONE) Take 200 mg 0 200 mg tablet by mouth daily. Take with food. sucralfate (CARAFATE) 1 Take 1 g by 0 gram tablet mouth every 6 hours. Take on an empty stomach. fluticasone propionate Apply 2 0 (FLONASE) 50 sprays to mcg/actuation nasal each nostril spray, suspension as directed twice daily. Shake bottle gently before using. rOPINIRole (REQUIP) 1 mg Take 1 mg by 0 tablet mouth three times daily. nitroglycerin (NITROSTAT) Place 0.4 mg 0 0.4 mg tablet under tongue every 5 minutes as needed for Chest Pain. Max of 3 tablets, call 911. insulin detemir U-100(+) Inject 55 0 (LEVEMIR) 100 unit/mL Units under vial the skin daily. diclofenac sodium Apply 0 (SOLARAZE) 3 % gel topically to affected area twice daily. fluticasone/umeclidin/joanna Inhale 1 puff 0 anter (TRELEGY ELLIPTA by mouth into IN) the lungs daily. potassium chloride SR Take 20 mEq 0 (K-DUR) 20 mEq tablet by mouth twice daily. Take with a meal and a full glass of water. pregabalin (LYRICA) 150 Take 150 mg 0 mg capsule by mouth three times daily. apixaban (ELIQUIS) 5 mg Take 5 mg by 0 tablet mouth twice daily. semaglutide (OZEMPIC) Inject 0.5 mg 0 0.25 mg or 0.5 mg(2 under the mg/1.5 mL) injection PEN skin every [address] Take 40 mg by 0 (PROTONIX) 40 mg tablet mouth daily. sacubitriL-valsartan Take 1 tablet 0 (ENTRESTO) 24-26 mg by mouth tablet twice daily. meloxicam (MOBIC) 15 mg Take 15 mg by 0 tablet mouth daily. bumetanide (BUMEX) 2 mg Take 2 mg by 0 tablet mouth twice daily. 11/21/2020 aspirin EC 81 mg tablet Take 81 mg by 0 mouth daily. Take with food. 11/18/2020 Calcium Carbonate 160 mg Chew by 0 calcium (400 mg) chew mouth. 11/18/2020 docosahexaenoic acid/epa Take by 0 (FISH OIL PO) mouth. 11/21/2020 losartan (COZAAR) 25 mg Take 12.5 mg 0 tablet by mouth daily. 11/18/2020 ondansetron (ZOFRAN) 4 mg Take 4 mg by 0 tablet mouth every 8 hours as needed for Nausea or Vomiting. 11/21/2020 SITagliptin (JANUVIA) 100 Take 100 mg 0 mg tab tablet by mouth daily. added in this encounter Orders First Ordered Date Medications Ordered That Might Not Have Count Last Ordered Date Been Administered benzonatate (TESSALON PERLES) capsule 1 11/20/2020 100 mg eucalyptus-menthol (HALLS) lozenge 1 1 0 11/20/2020 lozenge albuterol-ipratropium (DUONEB) nebulizer 1 11/19/2020 solution 3 mL ondansetron (ZOFRAN ODT) rapid dissolve 1 11/19/2020 tablet 4 mg sucralfate (CARAFATE) tablet 1 g 1 11/19 camphor/menthol (SARNA) 0.5/0.5 % 1 10/29 topical lotion bisacodyL (DULCOLAX) rectal suppository 1 11/17/2020 10 mg docusate (COLACE) capsule 100 mg 1 11/17 famotidine (PEPCID) injection 20 mg 1 insulin aspart U-100 (NOVOLOG FLEXPEN) 1 11/17/2020 injection PEN 0-6 Units nalOXone (NARCAN) injection 0.08 mg 1 pancrelipase 20,880 Units/sodium 1 11/17 bicarbonate 650 mg (KU CLOG DESTROYER) SODIUM CHLORIDE 0.9 % IV SOLP (Cabinet 1 11/17/2020 Override) tetracaine 0.25% /EPINEPHrine 0.003%(#) 1 11/17/2020 30 mL First Ordered Date EKG Orders Without Results Count Last Ordere d Date ECG 12-LEAD 1 11/17/2020 First Ordered Date Procedures Count Last Ordered Date 11/17/2020 CONSULT IV THERAPY TEAM 2 11/19/2020 First Ordered Date Diet Count Last Ordered Date DISCHARGE DIET DIABETIC 1 11/21/2020 First Ordered Date Nursing Count Last Ordered Date DISCHARGE ACTIVITY NORMAL 1 11/21/2020 DISCHARGE COMMENTS 1 11/21/2020 DISCHARGE CONTACT 1 11/21/2020 DISCHARGE SIGNS/SYMPTOMS 1 11/21/2020 NURSE COMMUNICATION 1 11/20/2020 MAY USE LINE 1 11/17/2020 First Ordered Date Consult Count Last Ordered Date CONSULT DIETITIAN 2 11/17/2020 First Ordered Date OT Count Last Ordered Date OT CONSULT OCCUPATIONAL THERAPY 1 2020 First Ordered Date PT Count Last Ordered Date PT CONSULT PHYSICAL THERAPY 1 11/17/2020 First Ordered Date GROUNDS CARETAKER Count Last Ordered Date GROUNDS CARETAKER CONSULT CLINICAL BEDSIDE SWALLOW 1 0 11/18/2020 EVAL & TX First Ordered Date Admission Count Last Ordered Date ADMIT TO INPATIENT (NO BED REQUEST) 1 First Ordered Date Transfer Count Last Ordered Date TRANSFER PATIENT (BED REQUEST) 1 021 First Ordered Date Discharge Count Last Ordered Date DISCHARGE PATIENT NOW 1 11/21/2020 First Ordered Date Equipment Count Last Ordered Date PUMP IV CONTROL UNIT W/MODULES 2 021 PUMP, FEEDING 1 11/17/2020 First Ordered Date Vital Signs Count Last Ordered Date VITAL SIGNS 1 11/17/2020 First Ordered Date Activity Count Last Ordered Date MOBILITY 1 11/17/2020 First Ordered Date SPECIALITY EQUIPMENT Count Last Ordered Date COMMODE STANDARD 300LBS MAX 2 11/19/2020 FAN 3 11/18/2020 First Ordered Date RT One-Time Procedures Count Last Ordered Da te RT EXERCISE WITH PULSE OXIMETRY FOR HOME 1 11/21/2020 OXYGEN WEANING TRIAL 1 11/18/2020 First Ordered Date Order Set Communication Count Last Ordered D ate VTE DRUG PROPHYLAXIS CONTRAINDICATED 1 0 11/17/2020 First Ordered Date Intake & Output Count Last Ordered Date INTAKE AND OUTPUT 1 11/17/[address] & Maintain Count Last Ordered Date PLACE AND MAINTAIN SCD 1 11/17/2020 First Ordered Date ADT Patient Update Count Last Ordered Date 11/19/2020 CHANGE SERVICE / LEVEL OF CARE (NO BED 3 11/20/2020 REQUEST) documented in this encounter Additional Health Concerns Last Indicated Resolved Time Infection Onset Date 11/17/2020 11/17/2020 2:22 PM CDT Covid-19 Rule-Out 11/17/2020 11/17/2020 11/17/2020 9:43 PM CDT Respiratory Rule-Out 11/17/2020 Assessment Noted Time A fall risk assessment has been completed for the pat ient 11/21/2020 8:15 AM CDT documented as of this encounter
--- OUTSIDE RECORDS SUMMARY | 2021-01-02 18:28 | XMS REPORT | Encounter Summary ---
Author Author [facility] Organization [facility] Address Unknown Phone Unavailable Care Team Providers Care Wet End Tester Name Role Phone Henrry See MD PCP Bradley Barraza MD 3 Encounter Details Care Team Description Date Type Department 11/17/2020 Hospital Imaging: [facility] [address], [address] [place] [address] Social History Date Tobacco Use [...] Name Priority Date/Time Associated Diag nosis CT HEAD EXTERNAL IMAGING Routine 11/17/2020 12:15 AM CDT documented in this encounter Results * CT HEAD EXTERNAL IMAGING (11/17/2020 12:15 [...]
== END 2020-12-30 19:28 | disposition home or self-care (01) ==
LOC: ER FS 17:40
DX: S52.132A Displaced fracture of neck of left radius, initial encounter for closed fracture (principal); S00.83XA Contusion of other part of head, initial encounter; S80.212A Abrasion, left knee, initial encounter; S80.211A Abrasion, right knee, initial encounter; S40.812A Abrasion of left upper arm, initial encounter; S09.90XA Unspecified injury of head, initial encounter; J44.9 Chronic obstructive pulmonary disease, unspecified; I10 Essential (primary) hypertension; W01.0XXA Fall on same level from slipping, tripping and stumbling without subsequent striking against object, initial encounter
CPT/HCPCS: 29125; 70450; 70486; 72125; 73080; 73090; 99284; A4565

== ENCOUNTER → 2021-01-26 | Outpatient (CLI) | payer OTHER ==
[~2021-01-26] MED LIST: ACHD5005 PO
--- NOTE | 2021-01-26 10:38 | Diagnostic Imaging Report ---
HISTORY: Nondisplaced fracture of the left radius. TECHNIQUE: Three views of the left elbow. COMPARISON: 12/30/2020. FINDINGS: Redemonstrated is a healing fracture of the left radius neck which demonstrates mild impaction. There is a small left elbow joint effusion, decreased since the prior exam. Alignment otherwise appears normal. IMPRESSION: 1. Healing, mildly impacted fracture of the left radial neck. 2. Small left elbow joint effusion, decreased since the prior study. Dictated by: Dictated on workstation # [id number]
== END ==
LOC: RAD FS 09:52
PROVIDERS: ATTEND Nurse Practitioner
DX: S52.135A Nondisplaced fracture of neck of left radius, initial encounter for closed fracture (principal); X58.XXXA Exposure to other specified factors, initial encounter
CPT/HCPCS: 73080

== ENCOUNTER → 2021-02-12 | Outpatient (CLI) | payer OTHER ==
--- NOTE | 2021-02-12 12:54 | Diagnostic Imaging Report ---
EXAMINATION: Left elbow radiographs, 3 views. COMPARISON: January 26, 2021. HISTORY: 65-year-old female, follow-up fracture at the level of the elbow. FINDINGS: There is a comminuted displaced fracture involving the radial head and neck. There does appear to be intra-articular fracture extension without gross offset of the articulating surface. There is no change in fracture alignment. There is no interval periosteal reaction or bony callus bridging. There is a redemonstrated elbow joint effusion. Elbow is not currently dislocated. There is no radiographically apparent fracture of the coronoid process. The elbow joint space is well preserved. IMPRESSION: 1. Comminuted mildly displaced fracture of the radial head and neck with intra-articular fracture extension and no offset of the articulating surface. 2. No interval change in fracture alignment or interval healing response since comparison exam. 3. Redemonstrated elbow joint effusion. Dictated by: Dictated on workstation # [id number]
== END ==
LOC: RAD FS 09:33
PROVIDERS: ATTEND Nurse Practitioner
DX: S52.135D Nondisplaced fracture of neck of left radius, subsequent encounter for closed fracture with routine healing (principal); M25.422 Effusion, left elbow; X58.XXXD Exposure to other specified factors, subsequent encounter
CPT/HCPCS: 73080

== ENCOUNTER → 2021-03-12 | Outpatient (CLI) | payer OTHER ==
--- NOTE | 2021-03-12 10:05 | Diagnostic Imaging Report ---
Indication: Left radial fracture AP, oblique and lateral views of the left radius are obtained with comparison made to study of 02/12/2021 There is increased lucency at the radial head fracture seen on the previous study. There is slight displacement similar to previous exam as well. No new abnormality is identified. IMPRESSION: There has been further resorption about the proximal radial fracture line with minimal visible callus identified. Otherwise, findings have remained stable without new complication. Dictated by: Dictated on workstation # [id number]
== END ==
LOC: RAD FS 09:13
PROVIDERS: ATTEND Nurse Practitioner
DX: S52.135D Nondisplaced fracture of neck of left radius, subsequent encounter for closed fracture with routine healing (principal); X58.XXXD Exposure to other specified factors, subsequent encounter
CPT/HCPCS: 73080